=== PATIENT | female | born 1970 | race Caucasian/White ===

== ENCOUNTER 2020-12-07 07:42 | Outpatient (CLI) | payer OTHER, SELFPAY ==
[2020-12-07 08:44] LABS: Transferrin 311 mg/dL (206-381)
[2020-12-07 09:52] LABS: Hepatitis B Surface Antigen Negative (Negative)
[2020-12-07 10:30] LABS: Hepatitis C Virus Antibody Reactive (Negative)
[2020-12-09 18:30] LABS: Hepatitis C RNA, Quant PCR 1480000 IU/mL
[2020-12-13 10:11] LABS: Ceruloplasmin 36 mg/dL (18-53)
[2020-12-14 10:06] LABS: Mitochondrial (M2) Ab (IgG) <=20.0 U (<=20.0)
[2020-12-14 10:06] LABS: Alpha-1-Antitrypsin, QN 212 mg/dL (83-199)
[2020-12-14 19:38] LABS: Actin Antibody (IgG) <20 U (<20)
== END 2020-12-07 07:43 | disposition home or self-care (01) ==
PROVIDERS: PCP Nurse Practitioner Family
DX: R74.8 Abnormal levels of other serum enzymes (principal); Z11.59 Encounter for screening for other viral diseases
CPT/HCPCS: 36415; 82103; 82390; 82728; 83516; 83520; 84466; 86803; 87340; 87522

== ENCOUNTER 2025-07-05 15:19 | Inpatient (IN) | payer OTHER, SELFPAY ==
--- OUTSIDE RECORDS SUMMARY | 2010-06-28 03:45 | XMS_ITS | Continuity of Care Document ---
Author Organization [facility] Address [address] [place] [address] Exec utive [facility] [address] [place] [address] Phone Care Team Providers Care Relationship Advisor Name Role Phone Richardson OD, Yovany Unavailable Unavailable Procedures Procedure Date Eye Exam & Treatment Refraction Advance Directives Directive Yes / No Effective Date File Name No Information Encounters Encounter Description Practice Location Reason(s) For Visit Diagnoses Date Provider Providers Copied on Encounter [facility], [address], [place], [place], [id number], [place] tel:[phone] [facility] No Information 0-201 0 Richardson OD Yovany. [address] , [address], [place], [address], [place]. tel:[phone] Family History Family Member Type Diagnosis Age At Onset No Information Payers Payer name Insurance type Covered alliance party ID Authoriza tion(s) Medicaid [facility] [id number] Social History Type Description Quantity Date Captured [...]
--- OUTSIDE RECORDS SUMMARY | 2010-06-28 03:45 | XMS_ITS | Continuity of Care Document ---
Author Organization [facility] Address [address] [place] [address] Exec utive [facility] [address] [place] [address] Phone Care Team Providers Care Branch Examiner Name Role Phone Richardson OD, Yovany Unavailable Unavailable Procedures Procedure Date Eye Exam & Treatment Refraction Advance Directives Directive Yes / No Effective Date File Name No Information Encounters Encounter Description Practice Location Reason(s) For Visit Diagnoses Date Provider Providers Copied on Encounter [facility], [address], [place], [place], [address], [place] tel:[phone] [facility] [place] No Information 0-201 0 Richardson OD Yovany. [address] , [address], [place], [address], [place]. tel:[phone] Family History Family Member Type Diagnosis Age At Onset No Information Payers Payer name Insurance type Covered constitution party ID Authoriza tion(s) Medicaid [facility] [id number] Social History Type Description Quantity Date Captured [...]
--- OUTSIDE RECORDS SUMMARY | 2024-12-23 20:00 | XMS_ITS | Continuity of Care Document ---
Author Organization [facility] Address [address] [place] [address] Phone Care Team Providers Care Developmental Specialist Name Role Phone Rebekah Jeff Conteh Unavailable Unavail able Procedures Procedure Date SUBSEQUENT HOSPITAL CARE [facility] CARE Advance Directives Directive Yes / No Effective Date File Name No Information Encounters Encounter Description Practice Location Reason(s) For Visit Diagnoses Date Provider Providers Copied on Encounter [facility], [address] [place], [place], [id number], tel:[phone] [facility] No Information 5 Rebekah Wero Aguilar. [address], [address], . tel:[phone] Referring Provider: Jose Perez, [address] [place] [address], [address]. tel:[phone] Family History Family Member Type Diagnosis Age At Onset No Information Payers Payer name Insurance type Covered green party ID Authoriza tion(s) No Information Social History [...]
--- OUTSIDE RECORDS SUMMARY | 2024-12-23 20:00 | XMS_ITS | Continuity of Care Document ---
Author Organization [facility] Address [address] [place] [address] Phone Care Team Providers Care Wash Box Operator Name Role Phone Rebekah Jeff Conteh Unavailable Unavail able Procedures Procedure Date SUBSEQUENT HOSPITAL CARE [facility]ARE Advance Directives Directive Yes / No Effective Date File Name No Information Encounters Encounter Description Practice Location Reason(s) For Visit Diagnoses Date Provider Providers Copied on Encounter [facility], [address] [place], [place], [id number], tel:[phone] [facility] Inpatient No Information 5 Rebekah Wero Aguilar. [address], [address], . tel:[phone] Referring Provider: Jose Perez, [address] [place] [address], [address]. tel:[phone] Family History Family Member Type Diagnosis Age At Onset No Information Payers Payer name Insurance type Covered constitution party ID Authoriza tion(s) No Information Social [...]
[2025-07-05] VITALS (7 sets, daily range): BP systolic 132–182; BP diastolic 72–96; PULSE 74–93; RESP 14–20; TEMP 36.5–37.2; O2SAT 95–100; BMI 45.1
--- NOTE | ~2025-07-05 | US_ITS ---
EXAMINATION: US paracentesis abd w/image DATE: 07/11/2025 12:44 INDICATION: Ascites. Abdominal distention. TECHNIQUE: The procedure and its risks and benefits were discussed with the patient. Potential risks discussed included bleeding and infection. The skin was prepped and draped in sterile fashion. 1% lidocaine was used for local anesthesia. Under ultrasound guidance, a 5 Fr catheter with trochar was advanced into the ascites in the left lower quadrant. Fluid was aspirated into vacuum bottles. The catheter was removed, and a dressing was applied. There were no immediate complications. FINDINGS: Ultrasound images demonstrate ascites and the catheter within the fluid. IMPRESSION: 1. Successful ultrasound-guided paracentesis yielding 8000 mL of yellow/straw- colored fluid. Reviewed, dictated and finalized at location A.
--- NOTE | ~2025-07-05 | CT_ITS ---
EXAMINATION: CTA chest PE abdomen pel DATE: 07/05/2025 18:27 INDICATION: Left chest, rib and upper abdominal pain. Shortness of breath. TECHNIQUE: Computed tomography (CT) pulmonary angiogram of the chest was performed with 100 mL Omnipaque-350 intravenous contrast. Additional 3D reconstructions utilizing coronal maximum intensity projection (MIP) were performed. CT of the abdomen and pelvis was performed with intravenous contrast utilizing the same contrast bolus following a short delay. Automated exposure control and iterative reconstruction technique were employed. The dose-length product was 2763.28 mGy-cm. COMPARISON: None FINDINGS: Chest: No pulmonary embolism. Small fat-containing Bochdalek hernia at the posterior right hemidiaphragm. Minimal atelectasis in the bilateral lower lungs. No pneumonia, pulmonary edema, pleural effusion or pneumothorax. Cardiomegaly. Small amount of atherosclerotic coronary artery calcification. No pericardial effusion. Enlargement of the central pulmonary arteries consistent with pulmonary arterial hypertension. Thoracic aorta is normal in caliber with no dissection. No pathologically enlarged abdominal or pelvic lymphadenopathy. Mild thoracic spondylosis with chronic compression fractures with 40% anterior vertebral body height loss at T11 and with 20% anterior vertebral body height loss at T12. Abdomen/pelvis: Frontal nodular cirrhotic liver. Cholecystectomy clips the gallbladder fossa. Mild splenomegaly measuring 14 cm in craniocaudal length along with recanalized umbilical vein consistent with portal venous hypertension. Bladder, uterus, anteverted uterus and bilateral adnexa are unremarkable. Bowels are unremarkable with no wall thickening or obstruction. Large amount of ascites throughout the abdomen and pelvis and extending into moderate-sized umbilical hernia. No pathologically enlarged abdominal or pelvic lymphadenopathy. Severe lower lumbar spondylosis. Large Schmorl's node along the superior endplate of L4. IMPRESSION: 1. No pulmonary embolism or other acute cardiopulmonary disease. 2. Cirrhosis with stigmata of portal venous hypertension and large amount of ascites in the abdomen and pelvis. 3. Cardiomegaly and enlargement of the central pulmonary arteries consistent with pulmonary arterial hypertension. 4. Moderate-sized umbilical hernia containing ascites. Reviewed, dictated and finalized at location A. IMPRESSION: 1. No pulmonary embolism or other acute cardiopulmonary disease. 2. Cirrhosis with stigmata of portal venous hypertension and large amount of as cites in the abdomen and pelvis. 3. Cardiomegaly and enlargement of the central pulmonary arteries consistent wi th pulmonary arterial hypertension. 4. Moderate-sized umbilical hernia containing ascites.
--- NOTE | ~2025-07-05 | XR_ITS ---
Examination: XR chest 1V portable Clinical History: RIB PAIN LEFT LOWER ANTERIOR MARGIN, FELL X 2 DAYS AGO ON RT Comparison: CTA chest one day prior Technique: Portable AP Findings: Heart size normal. Right hemithorax haziness likely overlying soft tissue artifact, also accounting for relative hyperlucency left lung. Lungs otherwise clear. No acute bony abnormality. IMPRESSION: 1. No definite acute cardiopulmonary findings given portable technique. Recommend short interval follow-up repeat x-ray. Reviewed, dictated and finalized at location R. IMPRESSION: 1. No definite acute cardiopulmonary findings given portable technique. Recomm end short interval follow-up repeat x-ray.
--- NOTE | ~2025-07-05 | US_ITS ---
EXAMINATION: US paracentesis abd w/image DATE: 07/06/2025 14:02 INDICATION: Ascites. TECHNIQUE: The procedure and its risks and benefits were discussed with the patient. Potential risks discussed included bleeding and infection. The skin was prepped and draped in sterile fashion. 1% lidocaine was used for local anesthesia. Under ultrasound guidance, a 5 Fr catheter with trochar was advanced into the ascites in the left lower quadrant. Fluid was aspirated into vacuum bottles. The catheter was removed, and a dressing was applied. There were no immediate complications. FINDINGS: Ultrasound images demonstrate ascites and the catheter within the fluid. IMPRESSION: 1. Successful ultrasound-guided paracentesis yielding 6000 mL of clear yellow fluid. Reviewed, dictated and finalized at location A.
--- NOTE | 2025-07-05 15:57 | ED.FALL ---
HPI - Fall General Chief Complaint: Fall <MARIN Cespedes Last Filed: 07/08/25 17:02> Stated Complaint: left side of chest pain <MARIN Cespedes Last Filed: 07/08/25 17:02> Time Seen by Provider: 07/05/25 15:26 <MARIN Cespedes Last Filed: 07/08/25 17:02> Source: patient <MARIN Cespedes Last Filed: 07/08/25 17:02> Mode of arrival: ambulatory <MARIN Cespedes Last Filed: 07/08/25 17:02> Limitations: no limitations <MARIN Cespedes Last Filed: 07/08/25 17:02> History of Present Illness HPI Narrative: Patient is a 55 y/o female who presents to the ED with c/o L sided rib and abdominal pain. Patient is from [place], but states she went to visit her grandson in [place] in December, but became ill while there. She has been in and out of the hospital for the past several months, diagnosed with pancreatitis, end-stage liver disease, bowel obstruction, several other complications. She returned home 10 days ago, but does not currently have a primary care doctor, GI specialist, or have any of her home medications. She states she tried to call the GI office today and has an appointment in the next 2 weeks. She tried to schedule herself for a paracentesis today as she states she is due for one, however had a fall yesterday and believes she injured her L sided ribs. C/o pain to L rib/L upper abdomen. States she was told she could not receive the paracentesis today d/t the injury. C/o abd bloating, SOB. Denies fevers. Patient denies ETOH use. States liver disease thought to originally be r/t hepatitis. <MARIN Cespedes Last Filed: 07/08/25 17:02> Related Data Home Medications: Home Medications ?Medication ?Instructions ?Recorded ?Confirmed ?Last Taken ?Type alprazolam 1 mg tablet 1 mg PO BID PRN anxiety 07/05/25 07/05/25 07/04/25 History bupropion HCl 200 mg tablet,12 hr 200 mg PO Q12H 07/05/25 07/05/25 Unknown History sustained-release furosemide 20 mg tablet 40 mg PO DAILY 07/05/25 07/05/25 Unknown History lactulose 10 gram/15 mL oral 30 ml PO TID 07/05/25 07/05/25 Unknown History solution (Constulose) levothyroxine 50 mcg tablet 50 mcg PO DAILY 07/05/25 07/05/25 Unknown History mupirocin 2 % topical ointment 1 applic topical TID 07/05/25 07/05/25 Unknown History ondansetron 4 mg disintegrating 4 mg PO TID PRN nausea and vomiting 07/05/25 07/05/25 Unknown History tablet pantoprazole 40 mg tablet,delayed 40 mg PO Q12H 07/05/25 07/05/25 Unknown History release quetiapine 100 mg tablet 200 mg PO HS 07/05/25 07/05/25 Unknown History sertraline 50 mg tablet 50 mg PO DAILY 07/05/25 07/05/25 Unknown History <Ailin Trevino PA-C - Last Filed: 07/08/25 17:02> Allergies/Adverse Reactions: Allergies Allergy/AdvReac Type Severity Reaction Status Date / Time adhesive tape AdvReac Intermediate blister Verified 07/05/25 22:18 <Ailin Trevino PA-C - Last Filed: 07/08/25 17:02> Review of Systems Review of Systems: All systems reviewed & are unremarkable except as noted in HPI. <MARIN Cespedes Last Filed: 07/08/25 17:02> All systems reviewed & are unremarkable except as noted in HPI and below <MARIN Cespedes Last Filed: 07/08/25 17:02> [facility] Family History Family History: Family History (Updated 07/05/25 @ 22:30 by Gabby Odonnell RN) Father Lung cancer <MARIN Cespedes Last Filed: 07/08/25 17:02> Social History Social History: Social History Smoking status: Former smoker Lack of Transportation: No Lack of Food: Never True Current Housing: I Have Housing Concerned About Future Housing: No Difficulty Paying Gas/Electric Bills: No Difficulty Paying for Meds: No Currently Unemployed: No Education: High School Diploma/GED Difficulty w/ Childcare or Family Care: No Spiritual care concerns: No <Ailin Trevino PA-C - Last Filed: 07/08/25 17:02> Exam Narrative: GENERAL: Appears older than stated age, morbidly obese with BMI 45.2, non-toxic, in no acute distress. HEAD: Normocephalic, atraumatic. RESPIRATORY: Airway patent, respirations nonlabored. Clear to auscultation bilaterally, no rales, rhonchi, wheezing. CARDIOVASCULAR: Regular rate and rhythm without murmurs, rubs, or gallops. ABDOMINAL: Moderate tenderness in left upper abdomen. Abdomen is somewhat firm/protuberant, moderately distended. Normoactive BS. Large umbilical hernia, soft, partially reducible, small abrasions overlying skin MUSCULOSKELETAL: Moves all extremities. No gross deformities. SKIN: Warm, dry, normal color. NEURO: A&O X3. Speech clear. Cranial nerves II-XII grossly intact. Steady gait. No ataxic movements. PSYCHIATRIC: Appropriate mood and affect. Normal interaction. <Ailin Trevino PA-C - Last Filed: 07/08/25 17:02> Course BIOINFORMATICS SCIENTIST/PA Physician Supervision This visit was performed by both a physician and an APC. I performed all aspects of the MDM as documented. <Femi Alberto MD - Last Filed: 07/05/25 19:34> Vital Signs Vital signs: Vital Signs Temperature 98.9 F 07/05/25 15:27 Pulse Rate 93 07/05/25 15:27 Respiratory Rate 20 07/05/25 15:27 Blood Pressure 182/96 H 07/05/25 15:27 Pulse Oximetry 95 07/05/25 15:27 Oxygen Delivery Room Air 07/05/25 15:27 Temperature 98.1 F 07/08/25 14:00 Pulse Rate 87 07/08/25 14:00 Respiratory Rate 18 07/08/25 14:00 Blood Pressure 106/49 L 07/08/25 14:00 Pulse Oximetry 96 07/08/25 14:00 Oxygen Delivery Room Air 07/08/25 09:15 <Ailin Trevino PA-C - Last Filed: 07/08/25 17:02> Vital Signs Temperature 98.9 F 07/05/25 15:27 Pulse Rate 93 07/05/25 15:27 Respiratory Rate 20 07/05/25 15:27 Blood Pressure 182/96 H 07/05/25 15:27 Pulse Oximetry 95 07/05/25 15:27 Oxygen Delivery Room Air 07/05/25 15:27 Temperature 98.1 F 07/08/25 14:00 Pulse Rate 87 07/08/25 14:00 Respiratory Rate 18 07/08/25 14:00 Blood Pressure 106/49 L 07/08/25 14:00 Pulse Oximetry 96 07/08/25 14:00 Oxygen Delivery Room Air 07/08/25 09:15 <Femi Alberto MD - Last Filed: 07/05/25 19:34> MDM - Fall MDM Narrative Medical decision making narrative: Patient presented to ED with report of L sided rib/upper abdominal pain s/p fall last night. Hx of end stage liver disease/liver cirrhosis, has been out of normal medications, does not currently have GI or PCP. Reporting abdominal bloating, need for paracentesis, shortness of breath. Vital signs are stable upon arrival. Oxygen 95 % on room air. Patient did have moderate tenderness throughout left upper abdomen on exam. Reports fall yesterday, unsure if she injured her ribs. No significant appreciable bony tenderness. Given moderate tenderness in abdomen, significant abd bloating, plan will be to cover for possible SBP with 2g dose of Rocephin. Cbc without leukocytosis or anemia. Very mild thrombocytopenia at 133. CMP with potassium 3.2. Replaced orally. Kidney function is stable. Mag within normal range. Lactic acid within normal range. Total bilirubin mildly elevated to 1.7. AST 50, ALT 24. Normal alk-phos and lipase. No records to compare to. Stable coags, INR 1.2 EKG with sinus rhythm, no concerning ST changes BNP 130 UA appears infected, sent for cx, will be covered with rocephin CTA chest with abd/pelvis obtained, no PE, no other acute pulm disease, cirrhosis/large amt of ascites: IMPRESSION: 1. No pulmonary embolism or other acute cardiopulmonary disease. 2. Cirrhosis with stigmata of portal venous hypertension and large amount of ascites in the abdomen and pelvis. 3. Cardiomegaly and enlargement of the central pulmonary arteries consistent with pulmonary arterial hypertension. 4. Moderate-sized umbilical hernia containing ascites. Patient will require admission for further evaluation, GI eval, paracentesis. Discussed case with AISHWARYA Honeycutt, recommended to hold on abx for now until paracentesis can be performed, recommended to restart Lasix 40mg po, spironolactone 100mg po. Will consult. Blood cx were obtained. Discussed case with Dr. Villaseñor, hospitalist, accepted patient for admission. Patient in agreement with plan. -- This visit was performed by both a physician and an APC. I performed all aspects of the MDM as documented. <Ailin Trevino PA-C - Last Filed: 07/08/25 17:02> Patient presented to ED with report of L sided rib/upper abdominal pain s/p fall last night. Hx of end stage liver disease, has been out of normal medications, does not currently have GI or PCP. Reporting abdominal bloating, need for paracentesis, shortness of breath. Vital signs are stable upon arrival. Oxygen 95 % on room air. Patient did have moderate tenderness throughout left upper abdomen on exam. No significant appreciable bony tenderness. Given moderate tenderness in abdomen, significant abd bloating, will cover for possible SBP with 2g dose of Rocephin. Cbc without leukocytosis or anemia. Very mild thrombocytopenia at 133. CMP with potassium 3.2. Replaced orally. Kidney function is stable. Mag within normal range. Lactic acid within normal range. Total bilirubin mildly elevated to 1.7. AST 50, ALT 24. Normal alk-phos and lipase. No records to compare to. Stable coags, INR 1.2 EKG with sinus rhythm, no concerning ST changes Troponin BNP 130 UA appears infected, sent for cx, will be covered with rocephin CTA chest with abd/pelvis obtained, no PE, no other acute pulm disease, cirrhosis/large amt of ascites Patient will require admission for further evaluation, GI eval, paracentesis. Discussed case with AISHWARYA Honeycutt, recommended to hold on abx for now until paracentesis can be performed, recommended to restart Lasix 40mg po, spironolactone 100mg po. Will consult. Discussed case with Dr. Villaseñor, hospitalist, accepted patient for admission. Patient in agreement with plan. -- This visit was performed by both a physician and an APC. I performed all aspects of the MDM as documented. <Femi Alberto MD - Last Filed: 07/05/25 19:34> Medical Records Attestation: I reviewed the patient's medical records. <Ailin Trevino PA-C - Last Filed: 07/08/25 17:02> Lab Data Attestation: I reviewed the patient's lab results. <Ailin Trevino PA-C - Last Filed: 07/08/25 17:02> Result diagrams: 07/08/25 05:05 07/08/25 05:05 <Ailin Trevino PA-C - Last Filed: 07/08/25 17:02> Labs: Lab Results 07/05/25 07/05/25 07/06/25 Range/Units 16:49 16:50 04:33 WBC 6.2 (4.5-10.0) K/mm3 RBC 3.95 L (4.2-5.4) M/mm3 Hgb 12.1 (12.0-15.0) g/dL Hct 36.7 L (37.0-47.0) % MCV 92.9 (80-100) fl MCH 30.6 (26-34) pg MCHC 33.0 (32-36) g/dl RDW 15.3 H (11.5-14.5) % Plt Count 133 L (150-375) k/mm3 MPV 9.7 (7.4-10.4) fl Immature Gran % (Auto) 0.3 (0-0.5) % Neut % (Auto) 59.2 (45.5-73.1) % Lymph % (Auto) 23.8 (18.3-44.2) % Esmer[place]da % (Auto) 13.8 H (2.6-8.5) % Eos % (Auto) 1.8 (0-4.4) % Baso % (Auto) 1.1 (0.2-1.2) % Lymph # (Auto) 1.48 (0.9-3.2) K/mm3 [place] # (Auto) 0.9 H (0.1-0.6) K/mm3 Eos # (Auto) 0.1 (0-0.3) K/mm3 Baso # (Auto) 0.1 (0.0-0.1) K/mm3 Abs Immat Gran (auto) 0.02 (0.00-0.031) K/mm3 Absolute Neuts (auto) 3.7 (1.3-6.7) K/mm3 Absolute Nucleated RBC 0.000 (0.0-0.012) K/mm3 Nucleated RBC % 0.0 (0.0-0.2) % % Immature Plt Fraction 1.1 (0.9-11.2) % PT 15.0 H (11.1-14.7) Seconds INR 1.2 APTT 28.9 (22.3-36.8) Seconds Sodium 134 L (137-145) mmol/L Potassium 3.2 L (3.4-5.0) mmol/L Chloride 105 (98-107) mmol/L Carbon Dioxide 25 (22-30) mmol/L Anion Gap 4 (4-12) mmol/L BUN 9 (7-17) mg/dL Creatinine 0.74 (0.7-1.0) mg/dL Estim Creat Clear Calc 105 ml/min Estimated GFR > 60 (59 - ) Glucose 121 H (65-110) mg/dL Lactic Acid 1.2 (0.7-2.0) mmol/L Calcium 8.3 L (8.4-10.2) mg/dL Magnesium 2.0 (1.6-2.3) mg/dL Total Bilirubin 1.7 H (0.2-1.3) mg/dL Direct Bilirubin (0-0.3) mg/dL AST 50 H (14-36) U/L ALT 24 (6-35) U/L Alkaline Phosphatase 121 (38-126) U/L Ammonia (9-30) umol/L Troponin I 0.022 (0.000-0.034) ng/mL NT-Pro-B Natriuret Pep 130 H (19.9-100) pg/mL Total Protein 7.3 (6.3-8.2) g/dL Albumin 3.1 L (3.5-5.1) g/dL Lipase 178 (23-300) U/L Urine Color Dark yellow (Yellow) Urine Appearance Cloudy H (Clear) Urine pH 6.5 (5.0-9.0) Ur Specific [place] 1.024 (1.001-1.035) Urine Protein Trace (Negative) mg/dL Urine Glucose (UA) Negative (Negative) mg/dL Urine Ketones Trace H (Negative) mg/dL Ur Blood (Man) Negative (Negative) Urine Nitrate Negative (Negative) Urine Bilirubin 1+ H (Negative) Urine Urobilinogen 1.0 (<2.0) mg/dL Add Ur Microanalysis Reviewed Leukocyte Esterase Rfl 1+ H (Negative) LAVON/UL Urine RBC 6-10 H (0-2) /hpf Urine WBC 21-50 H (0-3) /hpf Ur Squamous Epith Cells Moderate (Few) /hpf Urine Bacteria 2+ H /hpf Urine Casts 0-2 Urine Mucus Present /lpf POC Urine HCG, Qual Negative (Negative) Fluid Glucose (.) mg/dL Fluid Total Protein (.) g/dL Fluid Albumin (Not Estab.) g/dL Fluid Amylase (.) U/L Peritoneal Source Peritoneal Color (Colorless) Peritoneal Appearance (Clear) Peritoneal RBC (0-17328) /uL Periton Nuc Cells (0-500) /uL Periton Neutrophils (0-25) % Periton Lymphocytes % Peritoneal Monocytes % Peritoneal Eosinophils % Periton Mesothelial % Periton Macrophages % Peritoneal Other Cells % Hepatitis C Ab Screen Reactive (Negative) Hepatitis C RNA Quant Pending HCV RNA (PCR) log10 Pending Hepatitis C Genotype Pending 07/06/25 07/06/25 07/06/25 Range/Units 04:38 13:36 13:46 WBC 5.0 (4.5-10.0) K/mm3 RBC 3.51 L (4.2-5.4) M/mm3 Hgb 10.6 L (12.0-15.0) g/dL Hct 32.9 L (37.0-47.0) % MCV 93.7 (80-100) fl MCH 30.2 (26-34) pg MCHC 32.2 (32-36) g/dl RDW 15.5 H (11.5-14.5) % Plt Count 100 L (150-375) k/mm3 MPV 9.5 (7.4-10.4) fl Immature Gran % (Auto) 0.4 (0-0.5) % Neut % (Auto) 58.7 (45.5-73.1) % Lymph % (Auto) 25.4 (18.3-44.2) % [place]mer[place]da % (Auto) 13.1 H (2.6-8.5) % Eos % (Auto) 1.6 (0-4.4) % Baso % (Auto) 0.8 (0.2-1.2) % Lymph # (Auto) 1.28 (0.9-3.2) K/mm3 [place] # (Auto) 0.7 H (0.1-0.6) K/mm3 Eos # (Auto) 0.1 (0-0.3) K/mm3 Baso # (Auto) 0.0 (0.0-0.1) K/mm3 Abs Immat Gran (auto) 0.02 (0.00-0.031) K/mm3 Absolute Neuts (auto) 3.0 (1.3-6.7) K/mm3 Absolute Nucleated RBC 0.000 (0.0-0.012) K/mm3 Nucleated RBC % 0.0 (0.0-0.2) % % Immature Plt Fraction (0.9-11.2) % PT 15.7 H (11.1-14.7) Seconds INR 1.2 APTT (22.3-36.8) Seconds Sodium 132 L (137-145) mmol/L Potassium 3.5 (3.4-5.0) mmol/L Chloride 103 (98-107) mmol/L Carbon Dioxide 26 (22-30) mmol/L Anion Gap 3 L (4-12) mmol/L BUN 9 (7-17) mg/dL Creatinine 0.74 (0.7-1.0) mg/dL Estim Creat Clear Calc 105 ml/min Estimated GFR > 60 (59 - ) Glucose 101 (65-110) mg/dL Lactic Acid (0.7-2.0) mmol/L Calcium 7.9 L (8.4-10.2) mg/dL Magnesium 1.9 (1.6-2.3) mg/dL Total Bilirubin 1.9 H (0.2-1.3) mg/dL Direct Bilirubin (0-0.3) mg/dL AST 45 H (14-36) U/L ALT 21 (6-35) U/L Alkaline Phosphatase 101 (38-126) U/L Ammonia 34 H (9-30) umol/L Troponin I (0.000-0.034) ng/mL NT-Pro-B Natriuret Pep (19.9-100) pg/mL Total Protein 6.5 (6.3-8.2) g/dL Albumin 2.7 L (3.5-5.1) g/dL Lipase (23-300) U/L Urine Color (Yellow) Urine Appearance (Clear) Urine pH (5.0-9.0) Ur Specific [place] (1.001-1.035) Urine Protein (Negative) mg/dL Urine Glucose (UA) (Negative) mg/dL Urine Ketones (Negative) mg/dL Ur Blood (Man) (Negative) Urine Nitrate (Negative) Urine Bilirubin (Negative) Urine Urobilinogen (<2.0) mg/dL Add Ur Microanalysis Leukocyte Esterase Rfl (Negative) LAVON/UL Urine RBC (0-2) /hpf Urine WBC (0-3) /hpf Ur Squamous Epith Cells (Few) /hpf Urine Bacteria /hpf Urine Casts Urine Mucus /lpf POC Urine HCG, Qual (Negative) Fluid Glucose 101 (.) mg/dL Fluid Total Protein 1.8 (.) g/dL Fluid Albumin 0.9 (Not Estab.) g/dL Fluid Amylase 22 (.) U/L Peritoneal Source Peritoneal fluid Peritoneal Color Yellow (Colorless) Peritoneal Appearance Clear (Clear) Peritoneal RBC < 2000 (0-03975) /uL Periton Nuc Cells 161 (0-500) /uL Periton Neutrophils 5 (0-25) % Periton Lymphocytes 18 % Peritoneal Monocytes 14 % Peritoneal Eosinophils 0 % Periton Mesothelial 23 % Periton Macrophages 40 % Peritoneal Other Cells 0 % Hepatitis C Ab Screen (Negative) Hepatitis C RNA Quant HCV RNA (PCR) log10 Hepatitis C Genotype 07/07/25 07/08/25 Range/Units 09:30 05:05 WBC 3.7 L 3.6 L (4.5-10.0) K/mm3 RBC 3.39 L 3.26 L (4.2-5.4) M/mm3 Hgb 10.4 L 9.8 L (12.0-15.0) g/dL Hct 34.7 L 30.9 L (37.0-47.0) % MCV 102.4 H D 94.8 D (80-100) fl MCH 30.7 30.1 (26-34) pg MCHC 30.0 L 31.7 L (32-36) g/dl RDW 15.3 H 14.8 H (11.5-14.5) % Plt Count 69 L 76 L (150-375) k/mm3 MPV 9.4 9.6 (7.4-10.4) fl Immature Gran % (Auto) 0.3 0.3 (0-0.5) % Neut % (Auto) 54.4 54.5 (45.5-73.1) % Lymph % (Auto) 27.8 24.5 (18.3-44.2) % [place]mer[place]da % (Auto) 13.5 H 17.1 H (2.6-8.5) % Eos % (Auto) 3.2 2.5 (0-4.4) % Baso % (Auto) 0.8 1.1 (0.2-1.2) % Lymph # (Auto) 1.03 0.89 L (0.9-3.2) K/mm3 [place] # (Auto) 0.5 0.6 (0.1-0.6) K/mm3 Eos # (Auto) 0.1 0.1 (0-0.3) K/mm3 Baso # (Auto) 0.0 0.0 (0.0-0.1) K/mm3 Abs Immat Gran (auto) 0.01 0.01 (0.00-0.031) K/mm3 Absolute Neuts (auto) 2.0 2.0 (1.3-6.7) K/mm3 Absolute Nucleated RBC 0.000 0.000 (0.0-0.012) K/mm3 Nucleated RBC % 0.0 0.0 (0.0-0.2) % % Immature Plt Fraction 1.3 (0.9-11.2) % PT (11.1-14.7) Seconds INR APTT (22.3-36.8) Seconds Sodium 131 L 132 L (137-145) mmol/L Potassium 3.2 L 3.5 (3.4-5.0) mmol/L Chloride 99 100 (98-107) mmol/L Carbon Dioxide 27 27 (22-30) mmol/L Anion Gap 5 5 (4-12) mmol/L BUN 9 9 (7-17) mg/dL Creatinine 0.85 0.82 (0.7-1.0) mg/dL Estim Creat Clear Calc 90 93 ml/min Estimated GFR > 60 > 60 (59 - ) Glucose 125 H 101 (65-110) mg/dL Lactic Acid (0.7-2.0) mmol/L Calcium 8.3 L 8.4 (8.4-10.2) mg/dL Magnesium (1.6-2.3) mg/dL Total Bilirubin 1.4 H 1.1 (0.2-1.3) mg/dL Direct Bilirubin 0.0 (0-0.3) mg/dL AST 44 H 45 H (14-36) U/L ALT 24 22 (6-35) U/L Alkaline Phosphatase 93 96 (38-126) U/L Ammonia (9-30) umol/L Troponin I (0.000-0.034) ng/mL NT-Pro-B Natriuret Pep (19.9-100) pg/mL Total Protein 7.0 6.3 (6.3-8.2) g/dL Albumin 3.4 L 3.0 L (3.5-5.1) g/dL Lipase (23-300) U/L Urine Color (Yellow) Urine Appearance (Clear) Urine pH (5.0-9.0) Ur Specific [place] (1.001-1.035) Urine Protein (Negative) mg/dL Urine Glucose (UA) (Negative) mg/dL Urine Ketones (Negative) mg/dL Ur Blood (Man) (Negative) Urine Nitrate (Negative) Urine Bilirubin (Negative) Urine Urobilinogen (<2.0) mg/dL Add Ur Microanalysis Leukocyte Esterase Rfl (Negative) LAVON/UL Urine RBC (0-2) /hpf Urine WBC (0-3) /hpf Ur Squamous Epith Cells (Few) /hpf Urine Bacteria /hpf Urine Casts Urine Mucus /lpf POC Urine HCG, Qual (Negative) Fluid Glucose (.) mg/dL Fluid Total Protein (.) g/dL Fluid Albumin (Not Estab.) g/dL Fluid Amylase (.) U/L Peritoneal Source Peritoneal Color (Colorless) Peritoneal Appearance (Clear) Peritoneal RBC (0-17977) /uL Periton Nuc Cells (0-500) /uL Periton Neutrophils (0-25) % Periton Lymphocytes % Peritoneal Monocytes % Peritoneal Eosinophils % Periton Mesothelial % Periton Macrophages % Peritoneal Other Cells % Hepatitis C Ab Screen (Negative) Hepatitis C RNA Quant HCV RNA (PCR) log10 Hepatitis C Genotype <Ailin Trevino PA-C - Last Filed: 07/08/25 17:02> Lab Results 07/05/25 07/05/25 07/06/25 Range/Units 16:49 16:50 04:33 WBC 6.2 (4.5-10.0) K/mm3 RBC 3.95 L (4.2-5.4) M/mm3 Hgb 12.1 (12.0-15.0) g/dL Hct 36.7 L (37.0-47.0) % MCV 92.9 (80-100) fl MCH 30.6 (26-34) pg MCHC 33.0 (32-36) g/dl RDW 15.3 H (11.5-14.5) % Plt Count 133 L (150-375) k/mm3 MPV 9.7 (7.4-10.4) fl Immature Gran % (Auto) 0.3 (0-0.5) % Neut % (Auto) 59.2 (45.5-73.1) % Lymph % (Auto) 23.8 (18.3-44.2) % [place]mer[place]da % (Auto) 13.8 H (2.6-8.5) % Eos % (Auto) 1.8 (0-4.4) % Baso % (Auto) 1.1 (0.2-1.2) % Lymph # (Auto) 1.48 (0.9-3.2) K/mm3 [place] # (Auto) 0.9 H (0.1-0.6) K/mm3 Eos # (Auto) 0.1 (0-0.3) K/mm3 Baso # (Auto) 0.1 (0.0-0.1) K/mm3 Abs Immat Gran (auto) 0.02 (0.00-0.031) K/mm3 Absolute Neuts (auto) 3.7 (1.3-6.7) K/mm3 Absolute Nucleated RBC 0.000 (0.0-0.012) K/mm3 Nucleated RBC % 0.0 (0.0-0.2) % % Immature Plt Fraction 1.1 (0.9-11.2) % PT 15.0 H (11.1-14.7) Seconds INR 1.2 APTT 28.9 (22.3-36.8) Seconds Sodium 134 L (137-145) mmol/L Potassium 3.2 L (3.4-5.0) mmol/L Chloride 105 (98-107) mmol/L Carbon Dioxide 25 (22-30) mmol/L Anion Gap 4 (4-12) mmol/L BUN 9 (7-17) mg/dL Creatinine 0.74 (0.7-1.0) mg/dL Estim Creat Clear Calc 105 ml/min Estimated GFR > 60 (59 - ) Glucose 121 H (65-110) mg/dL Lactic Acid 1.2 (0.7-2.0) mmol/L Calcium 8.3 L (8.4-10.2) mg/dL Magnesium 2.0 (1.6-2.3) mg/dL Total Bilirubin 1.7 H (0.2-1.3) mg/dL Direct Bilirubin (0-0.3) mg/dL AST 50 H (14-36) U/L ALT 24 (6-35) U/L Alkaline Phosphatase 121 (38-126) U/L Ammonia (9-30) umol/L Troponin I 0.022 (0.000-0.034) ng/mL NT-Pro-B Natriuret Pep 130 H (19.9-100) pg/mL Total Protein 7.3 (6.3-8.2) g/dL Albumin 3.1 L (3.5-5.1) g/dL Lipase 178 (23-300) U/L Urine Color Dark yellow (Yellow) Urine Appearance Cloudy H (Clear) Urine pH 6.5 (5.0-9.0) Ur Specific [place] 1.024 (1.001-1.035) Urine Protein Trace (Negative) mg/dL Urine Glucose (UA) Negative (Negative) mg/dL Urine Ketones Trace H (Negative) mg/dL Ur Blood (Man) Negative (Negative) Urine Nitrate Negative (Negative) Urine Bilirubin 1+ H (Negative) Urine Urobilinogen 1.0 (<2.0) mg/dL Add Ur Microanalysis Reviewed Leukocyte Esterase Rfl 1+ H (Negative) LAVON/UL Urine RBC 6-10 H (0-2) /hpf Urine WBC 21-50 H (0-3) /hpf Ur Squamous Epith Cells Moderate (Few) /hpf Urine Bacteria 2+ H /hpf Urine Casts 0-2 Urine Mucus Present /lpf POC Urine HCG, Qual Negative (Negative) Fluid Glucose (.) mg/dL Fluid Total Protein (.) g/dL Fluid Albumin (Not Estab.) g/dL Fluid Amylase (.) U/L Peritoneal Source Peritoneal Color (Colorless) Peritoneal Appearance (Clear) Peritoneal RBC (0-68546) /uL Periton Nuc Cells (0-500) /uL Periton Neutrophils (0-25) % Periton Lymphocytes % Peritoneal Monocytes % Peritoneal Eosinophils % Periton Mesothelial % Periton Macrophages % Peritoneal Other Cells % Hepatitis C Ab Screen Reactive (Negative) Hepatitis C RNA Quant Pending HCV RNA (PCR) log10 Pending Hepatitis C Genotype Pending 07/06/25 07/06/25 07/06/25 Range/Units 04:38 13:36 13:46 WBC 5.0 (4.5-10.0) K/mm3 RBC 3.51 L (4.2-5.4) M/mm3 Hgb 10.6 L (12.0-15.0) g/dL Hct 32.9 L (37.0-47.0) % MCV 93.7 (80-100) fl MCH 30.2 (26-34) pg MCHC 32.2 (32-36) g/dl RDW 15.5 H (11.5-14.5) % Plt Count 100 L (150-375) k/mm3 MPV 9.5 (7.4-10.4) fl Immature Gran % (Auto) 0.4 (0-0.5) % Neut % (Auto) 58.7 (45.5-73.1) % Lymph % (Auto) 25.4 (18.3-44.2) % Esmeralda % (Auto) 13.1 H (2.6-8.5) % Eos % (Auto) 1.6 (0-4.4) % Baso % (Auto) 0.8 (0.2-1.2) % Lymph # (Auto) 1.28 (0.9-3.2) K/mm3 Esmeralda # (Auto) 0.7 H (0.1-0.6) K/mm3 Eos # (Auto) 0.1 (0-0.3) K/mm3 Baso # (Auto) 0.0 (0.0-0.1) K/mm3 Abs Immat Gran (auto) 0.02 (0.00-0.031) K/mm3 Absolute Neuts (auto) 3.0 (1.3-6.7) K/mm3 Absolute Nucleated RBC 0.000 (0.0-0.012) K/mm3 Nucleated RBC % 0.0 (0.0-0.2) % % Immature Plt Fraction (0.9-11.2) % PT 15.7 H (11.1-14.7) Seconds INR 1.2 APTT (22.3-36.8) Seconds Sodium 132 L (137-145) mmol/L Potassium 3.5 (3.4-5.0) mmol/L Chloride 103 (98-107) mmol/L Carbon Dioxide 26 (22-30) mmol/L Anion Gap 3 L (4-12) mmol/L BUN 9 (7-17) mg/dL Creatinine 0.74 (0.7-1.0) mg/dL Estim Creat Clear Calc 105 ml/min Estimated GFR > 60 (59 - ) Glucose 101 (65-110) mg/dL Lactic Acid (0.7-2.0) mmol/L Calcium 7.9 L (8.4-10.2) mg/dL Magnesium 1.9 (1.6-2.3) mg/dL Total Bilirubin 1.9 H (0.2-1.3) mg/dL Direct Bilirubin (0-0.3) mg/dL AST 45 H (14-36) U/L ALT 21 (6-35) U/L Alkaline Phosphatase 101 (38-126) U/L Ammonia 34 H (9-30) umol/L Troponin I (0.000-0.034) ng/mL NT-Pro-B Natriuret Pep (19.9-100) pg/mL Total Protein 6.5 (6.3-8.2) g/dL Albumin 2.7 L (3.5-5.1) g/dL Lipase (23-300) U/L Urine Color (Yellow) Urine Appearance (Clear) Urine pH (5.0-9.0) Ur Specific [place] (1.001-1.035) Urine Protein (Negative) mg/dL Urine Glucose (UA) (Negative) mg/dL Urine Ketones (Negative) mg/dL Ur Blood (Man) (Negative) Urine Nitrate (Negative) Urine Bilirubin (Negative) Urine Urobilinogen (<2.0) mg/dL Add Ur Microanalysis Leukocyte Esterase Rfl (Negative) LAVON/UL Urine RBC (0-2) /hpf Urine WBC (0-3) /hpf Ur Squamous Epith Cells (Few) /hpf Urine Bacteria /hpf Urine Casts Urine Mucus /lpf POC Urine HCG, Qual (Negative) Fluid Glucose 101 (.) mg/dL Fluid Total Protein 1.8 (.) g/dL Fluid Albumin 0.9 (Not Estab.) g/dL Fluid Amylase 22 (.) U/L Peritoneal Source Peritoneal fluid Peritoneal Color Yellow (Colorless) Peritoneal Appearance Clear (Clear) Peritoneal RBC < 2000 (0-17991) /uL Periton Nuc Cells 161 (0-500) /uL Periton Neutrophils 5 (0-25) % Periton Lymphocytes 18 % Peritoneal Monocytes 14 % Peritoneal Eosinophils 0 % [place] Mesothelial 23 % [place] Macrophages 40 % Peritoneal Other Cells 0 % Hepatitis C Ab Screen (Negative) Hepatitis C RNA Quant HCV RNA (PCR) log10 Hepatitis C Genotype 07/07/25 07/08/25 Range/Units 09:30 05:05 WBC 3.7 L 3.6 L (4.5-10.0) K/mm3 RBC 3.39 L 3.26 L (4.2-5.4) M/mm3 Hgb 10.4 L 9.8 L (12.0-15.0) g/dL Hct 34.7 L 30.9 L (37.0-47.0) % MCV 102.4 H D 94.8 D (80-100) fl MCH 30.7 30.1 (26-34) pg MCHC 30.0 L 31.7 L (32-36) g/dl RDW 15.3 H 14.8 H (11.5-14.5) % Plt Count 69 L 76 L (150-375) k/mm3 MPV 9.4 9.6 (7.4-10.4) fl Immature Gran % (Auto) 0.3 0.3 (0-0.5) % Neut % (Auto) 54.4 54.5 (45.5-73.1) % Lymph % (Auto) 27.8 24.5 (18.3-44.2) % Esmeralda % (Auto) 13.5 H 17.1 H (2.6-8.5) % Eos % (Auto) 3.2 2.5 (0-4.4) % Baso % (Auto) 0.8 1.1 (0.2-1.2) % Lymph # (Auto) 1.03 0.89 L (0.9-3.2) K/mm3 Esmeralda # (Auto) 0.5 0.6 (0.1-0.6) K/mm3 Eos # (Auto) 0.1 0.1 (0-0.3) K/mm3 Baso # (Auto) 0.0 0.0 (0.0-0.1) K/mm3 Abs Immat Gran (auto) 0.01 0.01 (0.00-0.031) K/mm3 Absolute Neuts (auto) 2.0 2.0 (1.3-6.7) K/mm3 Absolute Nucleated RBC 0.000 0.000 (0.0-0.012) K/mm3 Nucleated RBC % 0.0 0.0 (0.0-0.2) % % Immature Plt Fraction 1.3 (0.9-11.2) % PT (11.1-14.7) Seconds INR APTT (22.3-36.8) Seconds Sodium 131 L 132 L (137-145) mmol/L Potassium 3.2 L 3.5 (3.4-5.0) mmol/L Chloride 99 100 (98-107) mmol/L Carbon Dioxide 27 27 (22-30) mmol/L Anion Gap 5 5 (4-12) mmol/L BUN 9 9 (7-17) mg/dL Creatinine 0.85 0.82 (0.7-1.0) mg/dL Estim Creat Clear Calc 90 93 ml/min Estimated GFR > 60 > 60 (59 - ) Glucose 125 H 101 (65-110) mg/dL Lactic Acid (0.7-2.0) mmol/L Calcium 8.3 L 8.4 (8.4-10.2) mg/dL Magnesium (1.6-2.3) mg/dL Total Bilirubin 1.4 H 1.1 (0.2-1.3) mg/dL Direct Bilirubin 0.0 (0-0.3) mg/dL AST 44 H 45 H (14-36) U/L ALT 24 22 (6-35) U/L Alkaline Phosphatase 93 96 (38-126) U/L Ammonia (9-30) umol/L Troponin I (0.000-0.034) ng/mL NT-Pro-B Natriuret Pep (19.9-100) pg/mL Total Protein 7.0 6.3 (6.3-8.2) g/dL Albumin 3.4 L 3.0 L (3.5-5.1) g/dL Lipase (23-300) U/L Urine Color (Yellow) Urine Appearance (Clear) Urine pH (5.0-9.0) Ur Specific [place] (1.001-1.035) Urine Protein (Negative) mg/dL Urine Glucose (UA) (Negative) mg/dL Urine Ketones (Negative) mg/dL Ur Blood (Man) (Negative) Urine Nitrate (Negative) Urine Bilirubin (Negative) Urine Urobilinogen (<2.0) mg/dL Add Ur Microanalysis Leukocyte Esterase Rfl (Negative) LAVON/UL Urine RBC (0-2) /hpf Urine WBC (0-3) /hpf Ur Squamous Epith Cells (Few) /hpf Urine Bacteria /hpf Urine Casts Urine Mucus /lpf POC Urine HCG, Qual (Negative) Fluid Glucose (.) mg/dL Fluid Total Protein (.) g/dL Fluid Albumin (Not Estab.) g/dL Fluid Amylase (.) U/L Peritoneal Source Peritoneal Color (Colorless) Peritoneal Appearance (Clear) Peritoneal RBC (0-49644) /uL Periton Nuc Cells (0-500) /uL Periton Neutrophils (0-25) % Periton Lymphocytes % Peritoneal Monocytes % Peritoneal Eosinophils % Periton Mesothelial % Periton Macrophages % Peritoneal Other Cells % Hepatitis C Ab Screen (Negative) Hepatitis C RNA Quant HCV RNA (PCR) log10 Hepatitis C Genotype <Femi Alberto MD - Last Filed: 07/05/25 19:34> Imaging Data Attestation: I personally reviewed and interpreted this imaging study as follows: <Ailin Trevino PA-C - Last Filed: 07/08/25 17:02> ECG Data EKG #1: Attestation: I personally reviewed and interpreted this ECG as follows: <Ailin Trevino PA-C - Last Filed: 07/08/25 17:02> ECG completion date: 07/05/25 <Ailin Trevino PA-C - Last Filed: 07/08/25 17:02> ECG completion time: 16:45 <Ailin Trevino PA-C - Last Filed: 07/08/25 17:02> EKG Interpretation: normal rate (90), sinus rhythm and non-specific ST changes <Ailin Trevino PA-C - Last Filed: 07/08/25 17:02> Discharge Plan Discharge Clinical Impression: Left sided abdominal pain, Abnormal urinalysis Abdominal ascites Qualifiers: Ascites type: other type Qualified Code(s): R18.8 - Other ascites Cirrhosis of liver Qualifiers: Hepatic cirrhosis type: other cirrhosis Qualified Code(s): K74.69 - Other cirrhosis of liver <Ailin Trevino PA-C - Last Filed: 07/08/25 17:02> Patient Disposition: Still a Patient <MARIN Cespedes Last Filed: 07/08/25 17:02> Condition: Stable <MARIN Cespedes Last Filed: 07/08/25 17:02>
--- OUTSIDE RECORDS SUMMARY | 2025-07-05 16:07 | XMS_ITS | Clinical Summary ---
Author Organization [facility] Address [address] [id number] Phone Care Team Providers Care Biology Lecturer Name Role Phone Winsome Zambrano MD, Nicholas Williamson Primary Care Provide r Allergies No known active allergies Medications lisinopriL (PRINIVIL,ZESTRIL ) 40 mg tabletIndications :Primary hypertension Take 1 tablet (40 mg total) by mouth daily 90 tablet 4 3 Active Protonix 40 mg EC tablet Take 1 tablet (40 mg total) by mouth daily 3 Active ALPRAZolam (XANAX) 1 mg tabletIndications :SUMMER (generalized anxiety disorder) Take 1 tablet (1 mg total) by mouth every 12 (twelve) hours as needed for anxiety 30 tablet 3 Active gabapentin (NEURONTIN) 100 mg capsuleIndication s:RLS (restless legs syndrome) Take 1 capsule (100 mg total) by mouth nightly 90 capsule 4 Active buPROPion SR (WELLBUTRIN SR) 200 mg 12 hr tabletIndications :Bipolar 1 disorder with moderate zia (HCC) Take 1 tablet by mouth twice daily 60 tablet 4 Active QUEtiapine (SEROquel) 100 mg tabletIndications :Bipolar 1 disorder with moderate zia (HCC) Take 1 tablet (100 mg total) by mouth 2 (two) times a day 180 tablet 3 5 10/05/19 26 Active valACYclovir (VALTREX) 1 gram tablet Take 2 tabs (2000 mg) 2 times a days for 1 day. 4 tablet 5 5 Active Active Problems Problem Noted Date Diagnosed Date RLS (restless legs syndrome) 02/17/2024 Primary hypertension 07/18/2023 Assessment & Plan (08/11/2023 2:07 PM GLOBAL COORDINATOR): Chronic stable Well controlled Continue current prescribed medications at current dose Colitis 01/25/2021 Assessment & Plan (01/25/2021 2:45 PM CDT): Advised to finish her antibiotics (she stopped at 4-5 days) She expressed understanding and will do this Class 2 severe obesity due t o excess calories with serious comorbidity and body mass index (BMI) of 39.0 to 39.9 in adult 01/25/2021 Assessment & Plan (02/17/2024 3:34 PM CDT): Monitor weight Assessment & Plan (08/11/2023 2:48 PM GLOBAL COORDINATOR): Monitor weight Assessment & Plan (07/18/2023 11:49 AM CDT): Has lost significant weight since her last visit Assessment & Plan (01/25/2021 2:41 PM CDT): Will attempt adipex to see if this helps curb her appetite She believes her other conditions will approve if she loses weight I instructed how this pill can sometimes induce other feelings of anxiety, etc and needs to stop if she becomes maniac with it I suspect her previous addrell prescription she was taken was more for weight loss than ADHD and this does not carry the euphoria effect of addrell Preventative health care 01/25/2021 Assessment & Plan (08/11/2023 2:47 PM GLOBAL COORDINATOR): Reviewed labs, screenings and vaccines Bipolar 1 disorder with moderate zia Assessment & Plan (02/17/2024 3:31 PM CDT): Chronic stable Well controlled Continue current prescribed medications seroquel at current dose Assessment & Plan (01/25/2021 2:40 PM CDT): Will try vilazadone first and see how this work to help treat this If not, we will go back to fatemeh Immunizations Immunization Administration Dates Next Due Influenza, Quadrivalent, Spl it, Preservative Free, Intramuscular 07/21/2023,06/17/2020,08/18/2019,06/26,07/29/2017 Influenza, Unspecified 07/30/2023,2022(Deferred: Patient Refused),08/08/2022,07/30/2022(Deferre d: Patient Refused) [employer] (J&J) SARS-CoV-2 Vaccination 01/24/2021 Tdap 08/11/2018 ZOSTER Recombinant 02/06/2024,07/30/2023, 023 Surgical History Surgery Date Site/Laterality Comments CHOLECYSTECTOMY SECTION Medical History Medical History Date Comments Anxiety Depression Colitis Seizures (HCC) Family History Medical History Relation Name Comments Hypertension Father Lung cancer Father Relation Name Status Comments Father Mother Alive Social History Tobacco Use Types Packs/Day Years Used Date Smoking Tobacco: Some Days Vaping Tobacco Cessation:Ready to Q uit: Yes; Counseling Given: Yes Comments:cutting back AUDIT-C Answer Date Recorded Q1: How often do you have a drink containing alc ohol? Monthly or less 02/17/2024 Q2: How many drinks containi ng alcohol do you have on a typical day when you are drinking? 1 or 2 02/17/2024 Q3: How often do you have si x or more drinks on one occasion? Never 02/17/2024 PHQ-2 Answer Date Recorded PHQ-2 Total Score (If total score is 3 or more points, staff should administer the PHQ-9) 0 02/17/2024 Comments Unknown Sex and Gender Information Value Date Recorded Sex Assigned at Not on file Legal Sex Female 11:54 AM CDT Gender Identity Not on file Sexual Orientation Not on file Obstetrics History Last Filed Vital Signs Vital Sign Reading Time Taken Comments Blood Pressure 138/78 08/11/2023 1:37 PM GLOBAL COORDINATOR Pulse 90 08/11/2023 1:37 PM GLOBAL COORDINATOR Temperature 36.7 C (98 F) 08/11/2023 1:37 PM GLOBAL COORDINATOR Respiratory Rate 18 08/11/2023 1:37 PM GLOBAL COORDINATOR Oxygen Saturation 98% 08/11/2023 1:37 PM GLOBAL COORDINATOR Inhaled Oxygen Concentration - - Weight 105.7 kg (233 lb) 02/17/2024 3:06 PM CDT Height 170.2 cm (5' 7) 02/17/2024 3:06 PM CDT Body Mass Index 36.49 02/17/2024 3:06 PM CDT Plan of Treatment Health Maintenance Due Date Last Done Comments Breast Cancer Screening-Mammogram 1970 Cervical Cancer Screening 1970 Colon Cancer Screening-Colonoscopy 1970 Hepatitis C Screening 1970 Hepatitis B Screening 01/18/1988 Pneumococcal vaccine <65 (1 of 2 - PCV) 1989 Regular Well Visit/Exam 18-64 08/11/2024 08/11/2023, 01/25/2021 Depression Screening 02/16/2025 02/17/2024, 09/15/2023, 08/11/2023, Additional history exists Covid-19 Vaccine (4 - 2024-2 6 season) 2025 03/26/2021, 02/23/2021, 01/24/2021 Influenza Vaccine (#1) 2025 , 07/21/2023, 08/08/2022, Additional history exists DTaP/Tdap/Td Vaccine (2 - Td or Tdap) 08/11/2028 08/11/2018 Zoster Vaccine Completed 02/06/2024, 1109/2022, 07/21/2023 Insurance [facility] Care Teams Biology Lecturer Relationship Specialty Start Date End Date Nicholas Schumacher Jr., MD [address] [place] [id number] PCP - General Internal Medicine 01/17/21
--- NOTE | 2025-07-05 16:25 | ECG_ITS ---
Test Date: 2025-07-05 16:45:25 Measurements Intervals [place] Rate: 90 P: 6 ND: 167 QRS: -4 QRSD: 106 T: 25 QT: 359 QTc: 440 Interpretive Statements SINUS RHYTHM POSSIBLE ANTERIOR MYOCARDIAL INFARCTION , PROBABLY OLD MINIMAL Q WAVES- HIGH LATERAL LEADS BASELINE ARTIFACT- I, II, AVR, AVL, AVF, V1-V6 ABNORMAL ECG No previous ECG available for comparison Electronically Signed On 07-05-2025 18:54:45 CDT by Varghese Lau D.O.
--- OUTSIDE RECORDS SUMMARY | 2025-07-05 16:41 | XMS_ITS | Clinical Summary ---
Author Organization [facility] Address [address] [address] Phone Care Team Providers Care Car Ferrier Name Role Phone Winsome Zambrano MD, Nicholas [...] 07/18/2023 Assessment & Plan (08/11/2023 2:07 PM ELECTRIC LINEMAN): Chronic stable Well controlled Continue current prescribed [...] weight Assessment & Plan (08/11/2023 2:48 PM ELECTRIC LINEMAN): Monitor weight Assessment & Plan (07/18/2023 11:49 [...] 01/25/2021 Assessment & Plan (08/11/2023 2:47 PM ELECTRIC LINEMAN): Reviewed labs, screenings and vaccines Bipolar 1 [...] Unspecified 07/30/2023,2022(Deferred: Patient Refused),08/08/2022,07/30/2022(Deferre d: Patient Refused) [employer] (J&J) SARS-CoV-2 Vaccination 01/24/2021 Tdap 08/11/2018 ZOSTER [...] Comments Blood Pressure 138/78 08/11/2023 1:37 PM ELECTRIC LINEMAN Pulse 90 08/11/2023 1:37 PM ELECTRIC LINEMAN Temperature 36.7 C (98 F) 08/11/2023 1:37 PM ELECTRIC LINEMAN Respiratory Rate 18 08/11/2023 1:37 PM ELECTRIC LINEMAN Oxygen Saturation 98% 08/11/2023 1:37 PM ELECTRIC LINEMAN Inhaled Oxygen Concentration - - Weight 105.7 [...] Zoster Vaccine Completed 02/06/2024, 1109/2022, 07/21/2023 Insurance [facility] Care Teams Car Ferrier Relationship Specialty Start Date End Date Nicholas Schumacher Jr., MD [address] [place] [id number] PCP - General Internal Medicine 01/17/21
[2025-07-05 16:57] LABS: BEDSIDEPREGUCG Negative (Negative)
[2025-07-05 16:59] LABS: Hematocrit 36.7 % (37.0-47.0); Hemoglobin 12.1 g/dL (12.0-15.0); Immature Granulocyte Percent A 0.3 % (0-0.5); Immature Platelet Fraction Pct 1.1 % (0.9-11.2); Lymphocytes Absolute Auto 1.48 K/mm3 (0.9-3.2); Mean Corpuscular HGB Conc 33.0 g/dl (32-36); Mean Corpuscular Hemoglobin 30.6 pg (26-34); Mean Corpuscular Volume 92.9 fl (80-100); Nucleated Red Blood Cells Absolute Auto 0.000 K/mm3 (0.0-0.012); Nucleated Red Blood Cells Perc 0.0 % (0.0-0.2); Platelet Count Result 133 k/mm3 (150-375); Red Blood Count 3.95 M/mm3 (4.2-5.4); White Blood Count 6.2 K/mm3 (4.5-10.0)
[2025-07-05 17:07] LABS: INR 1.2; Prothrombin Time 15.0 Seconds (11.1-14.7)
[2025-07-05 17:08] LABS: Partial Thromboplastin Time 28.9 Seconds (22.3-36.8)
[2025-07-05 17:20] LABS: NT Pro B Type Natriuretic Pept 130 pg/mL (19.9-100)
[2025-07-05 17:23] LABS: Alanine Aminotransferase 24 U/L (6-35); Albumin Level 3.1 g/dL (3.5-5.1); Alkaline Phosphatase 121 U/L (38-126); Anion Gap 4 mmol/L (4-12); Aspartate Amino Transferase 50 U/L (14-36); Bilirubin,Total 1.7 mg/dL (0.2-1.3); Blood Urea Nitrogen 9 mg/dL (7-17); Calcium 8.3 mg/dL (8.4-10.2); Carbon Dioxide 25 mmol/L (22-30); Chloride 105 mmol/L (98-107); Estimated CRCL calculation 105 ml/min; Estimated Glomerular Filt Rate > 60; Glucose 121 mg/dL (65-110); Lipase 178 U/L (23-300); Magnesium 2.0 mg/dL (1.6-2.3); Potassium 3.2 mmol/L (3.4-5.0); Sodium 134 mmol/L (137-145); Total Protein 7.3 g/dL (6.3-8.2)
[2025-07-05 17:37] LABS: Add Urine Microscopic? YES; Appearance Urine Cloudy (Clear); Glucose Urine UA Negative (Negative); Leukocyte Esterase Ur 1+ LEU/UL (Negative); Need Manual Microscopic Reviewed; Nitrate Urine Negative (Negative); Non Pathogenic Casts 0-2; Specific Grav Ur 1.024 (1.001-1.035)
[2025-07-05] MEDS: ONDANSETRON INJ 4 MG/2 ML VIAL IV PUSH (18:28)
[2025-07-05] MEDS: POTASSIUM CHLORIDE 20 MEQ ER TABLET 40 MEQ PO (18:28)
[2025-07-05] MEDS: MORPHINE SULFATE (*CRX) 4 MG/ML INJ IV PUSH ×2 (19:10→22:54)
[2025-07-05 19:46] LABS: Troponin I 0.022 ng/mL (0.000-0.034)
--- NOTE | 2025-07-05 19:46 | P.HP_ITS ---
H&P: HPI History of Present Illness Date/Time: 07/05/25 19:46 Chief Complaint: Left-sided rib pain Narrative: 55-year-old female with history of untreated hepatitis-C, cirrhosis, ascites, portal hypertension with history of upper esophageal bleed, anxiety, class 3 obesity, remote tobacco abuse, current nicotine pouch abuse, Presenting to [facility] ER on 07/05/2025 complaining of left-sided rib pain after a fall. She denied hitting her head. Remotely, she was diagnosed hepatitis-C and has since refuse treatment, she is amenable to treatment now. Of recent, she went to visit a grandchild in [place] since 12/2024. At that time she reports she has been a mess, she was hospitalized for upper gastrointestinal bleed, cirrhosis, ascites. They placed dissolvable bands in her esophagus, she has not had any vomiting since. She has been getting paracentesis every few weeks, last time was 1 week prior to admission. She just got back to [place], contacted GI doctor Ankit but has not seen him yet. She has not had her medications in 1 week due to logistical issues with [place] prescribers. She believes her abdomen is very distended when she is due for paracentesis. She has not taken her lactulose, she reports she sometimes repeats things and probably needs it. ER evaluation demonstrates a comfortable, pleasant, cooperative female. Elevated blood pressure 182/96 otherwise hemodynamically stable. INR 1.2, hemoglobin 12.1, white count 6200, sodium 134, potassium 3.2, serum creatinine 0.74, AST 50, ALT 24, total bilirubin 1.7, alkaline phosphatase 121, troponin within normal limit, BNP 130, albumin 3.1. Urinalysis abnormal with wbc's and bacteria but contaminated with squamous cells. Patient denies any urinary symptoms, chest pain, vision change, syncope, shortness of breath, vomiting or diarrhea, fever. She was given Zofran, potassium 40 mEq p.o. x1, ceftriaxone 2 g x 1, morphine 4 mg IV x1, Lasix 40 mg p.o. x1, spironolactone 100 mg p.o. x1. Review of Systems Review of Systems: All systems reviewed & are unremarkable except as noted in HPI and below (Subjective) Meds Home Medications and Allergies Allergies Allergy/AdvReac Type Severity Reaction Status Date / Time latex Allergy Unknown Rash Verified 07/05/25 15:33 Vital Signs Vital Signs - 24 hr 07/05/25 15:27 Temperature 98.9 F Pulse Rate 93 Respiratory Rate 20 Blood Pressure 182/96 H Pulse Oximetry 95 Oxygen Delivery Room Air Exam Const: General: comfortable and no acute distress Other: Spider angiomata, pleasant, cooperative HENMT: Mouth: Yes moist mucous membranes Eyes: Pupils: Equal, round and reactive pupils present Neck: Neck: supple Resp: Effort & Inspection: normal respiratory effort Auscultation: clear to auscultation bilaterally Cardio: Rate: regular rate Rhythm: regular rhythm Heart sounds: no murmurs GI: Other: Distended but soft, hypo tympanic to percussion diffusely, nontender, hypoactive bowel sounds. Umbilical hernia with purplish discoloration and engorged vein, no tenderness or erythema. : General: Yes bladder normal to palpation Neuro: Motor exam (neuro): 5/5 motor strength present throughout Extrem: Other: 2+ pitting edema bilateral lower extremi ties below the knees Psych: Mental Status: mental status grossly normal H&P: Results Labs Labs: Short CBC 07/05/25 Range/Units 16:49 WBC 6.2 (4.5-10.0) K/mm3 Hgb 12.1 (12.0-15.0) g/dL Hct 36.7 L (37.0-47.0) % Plt Count 133 L (150-375) k/mm3 BMP 07/05/25 16:49 Sodium 134 L Potassium 3.2 L Chloride 105 Carbon Dioxide 25 BUN 9 Creatinine 0.74 Glucose 121 H Calcium 8.3 L Cardiac Enzymes 07/05/25 Range/Units 16:49 Troponin I 0.022 (0.000-0.034) ng/mL Liver Function 07/05/25 Range/Units 16:49 Total Bilirubin 1.7 H (0.2-1.3) mg/dL AST 50 H (14-36) U/L ALT 24 (6-35) U/L Alkaline Phosphatase 121 (38-126) U/L Albumin 3.1 L (3.5-5.1) g/dL Urine 07/05/25 Range/Units 16:49 Urine Color Dark yellow (Yellow) Urine Appearance Cloudy H (Clear) Urine pH 6.5 (5.0-9.0) Ur Specific [place] 1.024 (1.001-1.035) Urine Protein Trace (Negative) mg/dL Urine Glucose (UA) Negative (Negative) mg/dL Assessment and Plan Assessment and plan (1) Cirrhosis of liver: Qualifiers: Hepatic cirrhosis type: other cirrhosis Qualified Code(s): K74.69 - Other cirrhosis of liver Code(s): K74.60 - Unspecified cirrhosis of liver Status: Acute (2) Abdominal ascites: Qualifiers: Ascites type: other type Qualified Code(s): R18.8 - Other ascites Code(s): R18.8 - Other ascites Status: Acute (3) Left sided abdominal pain: Code(s): R10.9 - Unspecified abdominal pain Status: Acute (4) Abnormal urinalysis: Code(s): R82.90 - Unspecified abnormal findings in urine Status: Acute Plan 55-year-old female with history of untreated hepatitis-C, cirrhosis, ascites, portal hypertension with history of upper esophageal bleed, anxiety, class 3 obesity, remote tobacco abuse, current nicotine pouch abuse, Presenting to [facility] ER on 07/05/2025 complaining of left-sided rib pain after a fall. She denied hitting her head. Remotely, she was diagnosed hepatitis-C and has since refuse treatment, she is amenable to treatment now. Of recent, she went to visit a grandchild in [place] since 12/2024. At that time she reports she has been a mess, she was hospitalized for upper gastrointestinal bleed, cirrhosis, ascites. They placed dissolvable bands in her esophagus, she has not had any vomiting since. She has been getting paracentesis every few weeks, last time was 1 week prior to admission. She just got back to [place], contacted GI doctor Ankit but has not seen him yet. She has not had her medications in 1 week due to logistical issues with [place] prescribers. She believes her abdomen is very distended when she is due for paracentesis. She has not taken her lactulose, she reports she sometimes repeats things and probably needs it. ER evaluation demonstrates a comfortable, pleasant, cooperative female. Elevated blood pressure 182/96 otherwise hemodynamically stable. INR 1.2, hemoglobin 12.1, white count 6200, sodium 134, potassium 3.2, serum creatinine 0.74, AST 50, ALT 24, total bilirubin 1.7, alkaline phosphatase 121, troponin within normal limit, BNP 130, albumin 3.1. Urinalysis abnormal with wbc's and bacteria but contaminated with squamous cells. Patient denies any urinary symptoms, chest pain, vision change, syncope, shortness of breath, vomiting or diarrhea, fever. CTA chest abdomen pelvis with contrast: 1. No pulmonary embolism or other acute cardiopulmonary disease. 2. Cirrhosis with stigmata of portal venous hypertension and large amount of ascites in the abdomen and pelvis. 3. Cardiomegaly and enlargement of the central pulmonary arteries consistent with pulmonary arterial hypertension. 4. Moderate-sized umbilical hernia containing ascites. She was given Zofran, potassium 40 mEq p.o. x1, morphine 4 mg IV x1, Lasix 40 mg p.o. x1, spironolactone 100 mg p.o. x1. ----- Hospitalist contacted for admission and paracentesis. Gastroenterology contacted from ER, they advised no need for antibiotics, restart her diuretics. Daily weights, intake/output. Low-sodium diet, NPO midnight. Paracentesis ordered. Follow-up on fluid studies. Prior to admission she is on propranolol 10 mg p.o. q.day, furosemide 40 mg p.o. q.day, spironolactone 100 mg p.o. q.day. Restart those, she has not taken them for a week. Check hepatitis-C viral load, follow GI recommendations for further treatment plan. Restart INTERIOR HORTICULTURIST lactulose. Check ammonia level Restart INTERIOR HORTICULTURIST quetiapine, bupropion, Xanax. Hypokalemia: replace and recheck. Hyponatremia: Mild, continue to monitor. Thrombocytopenia: Continue to monitor Follow-up urine and blood cultures. No antibiotics for now. ----- Low-sodium diet. NPO midnight Saline lock IV. SCDs. Patient wishes to be full code. Greater than 55 minutes spent on [id number] time, medical decision-making, coordination with nursing and ER staff. Hospitalist MIPS Advance Care Plan I have confirmed that the patient's Advanced Care Plan is present, code status is documented, or surrogate decision maker is listed in patient medical record.: Yes Medication Reconciliation I have utilized all available resources to obtain, update and review the patients current medications (includes all prescriptions, OTC, herbals, cannabis, and nutritional supplements).: Yes
[2025-07-05] MEDS: FUROSEMIDE 40 MG TABLET PO (19:52)
[2025-07-05] MEDS: SPIRONOLACTONE 50 MG TABLET 100 MG PO (19:53)
--- NOTE | 2025-07-05 21:58 | ADMGEN ---
This patient, Jil Esteves, was admitted to Medical Room 249-01. Patient/family oriented to hospital policies and general routines including ID bracelet, bed and alarms, visiting hours, pain management, procedures, bathroom and other care routines, personal items, smoking policy, room service/diet, and visiting hours. Information on how to activate the Rapid Response Team has been discussed. Patient/Family are encouraged to report perceived risks to care and to ask questions if they do not understand what they are told or what they should do.
[2025-07-06] VITALS (11 sets, daily range): BP systolic 122–142; BP diastolic 56–71; PULSE 71–88; RESP 18; TEMP 36.3–36.6; O2SAT 96–98
[2025-07-06] MEDS: MORPHINE SULFATE (*CRX) 4 MG/ML INJ IV PUSH ×6 (03:05→21:49)
[2025-07-06] MEDS: ONDANSETRON INJ 4 MG/2 ML VIAL IV PUSH ×4 (03:05→21:50)
[2025-07-06 04:59] LABS: Hematocrit 32.9 % (37.0-47.0); Hemoglobin 10.6 g/dL (12.0-15.0); Immature Granulocyte Percent A 0.4 % (0-0.5); Lymphocytes Absolute Auto 1.28 K/mm3 (0.9-3.2); Mean Corpuscular HGB Conc 32.2 g/dl (32-36); Mean Corpuscular Hemoglobin 30.2 pg (26-34); Mean Corpuscular Volume 93.7 fl (80-100); Nucleated Red Blood Cells Absolute Auto 0.000 K/mm3 (0.0-0.012); Nucleated Red Blood Cells Perc 0.0 % (0.0-0.2); Platelet Count Result 100 k/mm3 (150-375); Red Blood Count 3.51 M/mm3 (4.2-5.4); White Blood Count 5.0 K/mm3 (4.5-10.0)
[2025-07-06 05:08] LABS: Ammonia 34 umol/L (9-30)
[2025-07-06 05:11] LABS: Alanine Aminotransferase 21 U/L (6-35); Albumin Level 2.7 g/dL (3.5-5.1); Alkaline Phosphatase 101 U/L (38-126); Anion Gap 3 mmol/L (4-12); Aspartate Amino Transferase 45 U/L (14-36); Bilirubin,Total 1.9 mg/dL (0.2-1.3); Blood Urea Nitrogen 9 mg/dL (7-17); Calcium 7.9 mg/dL (8.4-10.2); Carbon Dioxide 26 mmol/L (22-30); Chloride 103 mmol/L (98-107); Estimated CRCL calculation 105 ml/min; Estimated Glomerular Filt Rate > 60; Glucose 101 mg/dL (65-110); INR 1.2; Magnesium 1.9 mg/dL (1.6-2.3); Potassium 3.5 mmol/L (3.4-5.0); Prothrombin Time 15.7 Seconds (11.1-14.7); Sodium 132 mmol/L (137-145); Total Protein 6.5 g/dL (6.3-8.2)
--- NOTE | 2025-07-06 06:13 | WPDGICN ---
Assessment and Plan Assessment and plan (1) Cirrhosis of liver: Qualifiers: Hepatic cirrhosis type: other cirrhosis Qualified Code(s): K74.69 - Other cirrhosis of liver Code(s): K74.60 - Unspecified cirrhosis of liver Status: Acute Assessment and Plan: The underlying etiology for the patient's decompensation is advanced cirrhosis due to untreated hepatitis C, which is likely exacerbated by her morbid obesity and features consistent with MASLD. The immediate management plan is : first, perform a large volume paracentesis with appropriate albumin replacement today; second, reinstitute diuretic therapy using spironolactone 100 mg daily and furosemide 40 mg daily; and third, update the hepatitis C viral load pursue antiviral treatment. Importantly, her clinical picture suggests she might be a good candidate for liver transplantation. We will discuss this option with her today and facilitate a referral to a transplant center. (2) Abdominal ascites: Qualifiers: Ascites type: other type Qualified Code(s): R18.8 - Other ascites Code(s): R18.8 - Other ascites Status: Acute GI Consult Note Consult date/time: 07/06/25 06:13 Reason for consult: Decompensated cirrhosis HPI: Jil Esteves is a 55-year-old woman with a history of untreated hepatitis C whose health rapidly declined within the last few months, beginning shortly after a trip in December. This deterioration is characterized by recurrent episodes of hepatic decompensation, including upper GI bleeding that required esophageal variceal ligation and, most significantly, the development of refractory ascites necessitating multiple hospitalizations for large volume paracentesis. She reports inconsistent adherence to prescribed diuretics due to administrative medication delivery problems. She was admitted last night with massive ascites causing severe abdominal discomfort. Relevant admission laboratory data included: Hemoglobin 12.1, platelets 133, INR 1.2, sodium 134, creatinine 0.74, total bilirubin 1.7, AST 50, ALT 24, and albumin 3.1. A CT scan of the abdomen confirmed the findings of cirrhosis, splenomegaly, massive ascites, and a large umbilical hernia Review of Systems Review of Systems: All systems reviewed & are unremarkable except as noted in HPI and below PMFSH Family History Family History (Updated 07/05/25 @ 22:30 by Gabby Odonenll RN) Father Lung cancer Social History Social History Smoking status: Former smoker Lack of Transportation: No Lack of Food: Never True Current Housing: I Have Housing Concerned About Future Housing: No Difficulty Paying Gas/Electric Bills: No Difficulty Paying for Meds: No Currently Unemployed: No Education: High School Diploma/GED Difficulty w/ Childcare or Family Care: No Spiritual care concerns: No Meds Home Medications and Allergies Home Medications ?Medication ?Instructions ?Recorded ?Confirmed ?Type alprazolam 1 mg tablet 1 mg PO BID PRN anxiety 07/05/25 07/05/25 History bupropion HCl 200 mg tablet,12 hr 200 mg PO Q12H 07/05/25 07/05/25 History sustained-release furosemide 20 mg tablet 40 mg PO DAILY 07/05/25 07/05/25 History lactulose 10 gram/15 mL oral 30 ml PO TID 07/05/25 07/05/25 History solution (Constulose) levothyroxine 50 mcg tablet 50 mcg PO DAILY 07/05/25 07/05/25 History mupirocin 2 % topical ointment 1 applic topical TID 07/05/25 07/05/25 History ondansetron 4 mg disintegrating 4 mg PO TID PRN nausea and vomiting 07/05/25 07/05/25 History tablet pantoprazole 40 mg tablet,delayed 40 mg PO Q12H 07/05/25 07/05/25 History release quetiapine 100 mg tablet 200 mg PO HS 07/05/25 07/05/25 History sertraline 50 mg tablet 50 mg PO DAILY 07/05/25 07/05/25 History Allergies Allergy/AdvReac Type Severity Reaction Status Date / Time adhesive tape AdvReac Intermediate blister Verified 07/05/25 22:18 Vital Signs Vital Signs - 24 hr 07/05/25 15:27 07/05/25 18:44 07/05/25 19:24 Temperature 98.9 F Pulse Rate 93 78 82 Respiratory Rate 20 18 16 Blood Pressure 182/96 H 140/82 146/89 H Pulse Oximetry 95 100 100 Oxygen Delivery Room Air 07/05/25 21:06 07/05/25 21:47 07/05/25 22:00 Temperature 97.7 F Pulse Rate 78 74 79 Respiratory Rate 14 19 18 Blood Pressure 155/95 H 132/87 148/72 H Pulse Oximetry 100 99 99 Oxygen Delivery 07/05/25 22:28 07/06/25 01:18 07/06/25 04:00 Temperature Pulse Rate 77 86 73 Respiratory Rate Blood Pressure Pulse Oximetry Oxygen Delivery Results Labs 07/06/25 04:38 07/06/25 04:38 Labs: Short CBC 07/05/25 07/06/25 Range/Units 16:49 04:38 WBC 6.2 5.0 (4.5-10.0) K/mm3 Hgb 12.1 10.6 L (12.0-15.0) g/dL Hct 36.7 L 32.9 L (37.0-47.0) % Plt Count 133 L 100 L (150-375) k/mm3 BMP 07/05/25 07/06/25 16:49 04:38 Sodium 134 L 132 L Potassium 3.2 L 3.5 Chloride 105 103 Carbon Dioxide 25 26 BUN 9 9 Creatinine 0.74 0.74 Glucose 121 H 101 Calcium 8.3 L 7.9 L Cardiac Enzymes 07/05/25 Range/Units 16:49 Troponin I 0.022 (0.000-0.034) ng/mL Liver Function 07/05/25 07/06/25 Range/Units 16:49 04:38 Total Bilirubin 1.7 H 1.9 H (0.2-1.3) mg/dL AST 50 H 45 H (14-36) U/L ALT 24 21 (6-35) U/L Alkaline Phosphatase 121 101 (38-126) U/L Albumin 3.1 L 2.7 L (3.5-5.1) g/dL Urine 07/05/25 Range/Units 16:49 Urine Color Dark yellow (Yellow) Urine Appearance Cloudy H (Clear) Urine pH 6.5 (5.0-9.0) Ur Specific [place] 1.024 (1.001-1.035) Urine Protein Trace (Negative) mg/dL Urine Glucose (UA) Negative (Negative) mg/dL
[2025-07-06] MEDS: LACTULOSE 20 GM/30 ML UDC PO ×2 (06:19→14:15)
[2025-07-06] MEDS: LEVOTHYROXINE SODIUM 50 MCG TABLET PO (06:19)
[2025-07-06] MEDS: SPIRONOLACTONE 50 MG TABLET 100 MG PO (08:14)
[2025-07-06] MEDS: SERTRALINE HCL 50 MG TABLET PO (08:14)
[2025-07-06] MEDS: buPROPion HCL SR (12HR) 100 MG TABCR 200 MG PO (08:14)
[2025-07-06] MEDS: FUROSEMIDE 40 MG TABLET PO (08:14)
--- NOTE | 2025-07-06 09:02 | PM.IMPN ---
Progress Note: A&P Assessment and Plan (1) Cirrhosis of liver: Qualifiers: Hepatic cirrhosis type: other cirrhosis Qualified Code(s): K74.69 - Other cirrhosis of liver Code(s): K74.60 - Unspecified cirrhosis of liver Status: Acute (2) Abdominal ascites: Qualifiers: Ascites type: other type Qualified Code(s): R18.8 - Other ascites Code(s): R18.8 - Other ascites Status: Acute (3) Left sided abdominal pain: Code(s): R10.9 - Unspecified abdominal pain Status: Acute (4) Abnormal urinalysis: Code(s): R82.90 - Unspecified abnormal findings in urine Status: Acute Plan 55-year-old female with history of untreated hepatitis-C, cirrhosis, ascites, portal hypertension with history of upper esophageal bleed s/p banding in [place] 12/2024, anxiety, class 3 obesity, remote tobacco abuse, current nicotine abuse, Presenting to [facility] ER on 07/05/2025 complaining of left-sided rib pain after a fall, did not hit her head. Had large volume ascites on admission . CTA chest abdomen pelvis with contrast: 1. No pulmonary embolism or other acute cardiopulmonary disease. 2. Cirrhosis with stigmata of portal venous hypertension and large amount of ascites in the abdomen and pelvis. 3. Cardiomegaly and enlargement of the central pulmonary arteries consistent with pulmonary arterial hypertension. 4. Moderate-sized umbilical hernia containing ascites. Cirrhosis Ascites Has been getting a paracentesis every few weeks, last 1 week prior to admission Out of medications for a week prior to admission GI consulted, appreciate recommendations s/p paracentesis 07/06, 6L off. Albumin post procedure Low sodium diet Follow LFT's, Bili 1.8<1.9 Continue lactulose Continue Furosemide, spironolactone Hepatitis C Outpatient follow up with GI Check hepatitis-C viral load Anxiety Continue home quetiapine, bupropion, Xanax. Hypokalemia: replace and recheck. Hyponatremia: Mild, continue to monitor. Thrombocytopenia: Continue to monitor Follow-up urine and blood cultures. No antibiotics for now. Low-sodium diet. NPO midnight Saline lock IV. SCDs. FULL CODE Greater than 55 minutes spent on [id number] time, medical decision-making, coordination with nursing and ER staff. Time Spent With Patient Time: 59 minutes Subjective Date/time seen: 07/06/25 09:02 Interval history: S/p paracentesis today, 6L off. Giving albumin Reporting lower abdominal pain improved but still having LUQ pain. Adjusted pain regimen Denies BM today, on lactulose, monitoring Review of Systems Review of Systems: All systems reviewed & are unremarkable except as noted in HPI and below (Subjective) Exam Narrative: General - Awake and alert. No acute distress Eyes - PERRLA, EOM intact ENT - No thrush, No erythema Neck - No noticeable or palpable swelling Lymph Nodes - No lymphadenopathy Cardiovascular - RRR no m/r/g, no JVD Lungs: Clear to auscultation, No wheezing, use of accessory muscles, no crackles Skin - Skin warm and dry, no wounds or rashes Abdomen - Normal bowel sounds, abdomen soft and nontender, distended Extremities - No edema, cyanosis or clubbing Musculoskeletal - 5/5 strength, normal range of motion, no swollen or erythematous joints. Neurological ? Alert and oriented x 3, CN 2-12 grossly intact. Psych: Normal mood and affect Objective Data Vital Signs Vital Signs: Vital Signs - 24 hr 07/05/25 15:27 07/05/25 18:44 07/05/25 19:24 Temperature 98.9 F Pulse Rate 93 78 82 Respiratory Rate 20 18 16 Blood Pressure 182/96 H 140/82 146/89 H Pulse Oximetry 95 100 100 Oxygen Delivery Room Air 07/05/25 21:06 07/05/25 21:47 07/05/25 22:00 Temperature 97.7 F Pulse Rate 78 74 79 Respiratory Rate 14 19 18 Blood Pressure 155/95 H 132/87 148/72 H Pulse Oximetry 100 99 99 Oxygen Delivery 07/05/25 22:28 07/06/25 01:18 07/06/25 04:00 Temperature Pulse Rate 77 86 73 Respiratory Rate Blood Pressure Pulse Oximetry Oxygen Delivery 07/06/25 06:00 07/06/25 07:45 07/06/25 08:13 Temperature 97.8 F Pulse Rate 71 72 Respiratory Rate 18 Blood Pressure 125/56 L 129/71 Pulse Oximetry 98 97 Oxygen Delivery Room Air Meds/Results Medications: Active Medications Generic Name Dose Route Start Last Admin Trade Name Freq PRN Reason Stop Dose Admin Alprazolam 1 mg 07/06/25 01:09 Alprazolam (*Crx) 0.5 Mg Tablet PO BID PRN Anxiety Bupropion HCl 200 mg 07/06/25 09:00 07/06/25 08:14 Bupropion Hcl Sr (12hr) 100 Mg Tabcr PO 200 mg Q12HR LEONID Administration Dextrose 12.5 gm 07/05/25 19:24 Dextrose 50% 25 Gm/50 Ml Syringe IV PUSH PRN PRN Hypoglycemia Protocol Furosemide 40 mg 07/06/25 09:00 07/06/25 08:14 Furosemide 40 Mg Tablet PO 40 mg DAILY LEONID Administration Glucagon 1 mg 07/05/25 19:24 Glucagon For Inj 1 Mg Vial IM PRN PRN Hypoglycemia Protocol Glucose 15 gm 07/05/25 19:24 Glucose Oral Gel 15 Gm Of Glucse In 37.5 Gm Tube PO PRN PRN Hypoglycemia Protocol Dextrose 1,000 mls @ 100 mls/hr 07/05/25 19:24 Dextrose 5% 1,000 Ml IVPB PRN PRN Hypoglycemia Protocol Lactulose 20 gm 07/06/25 06:00 07/06/25 06:19 Lactulose 20 Gm/30 Ml Udc PO 20 gm Q8HR LEONID Administration Levothyroxine Sodium 50 mcg 07/06/25 06:30 07/06/25 06:19 Levothyroxine Sodium 50 Mcg Tablet PO 50 mcg DAILY@0630 LEONID Administration Morphine Sulfate 4 mg 07/05/25 19:24 07/06/25 07:44 Morphine Sulfate (*Crx) 4 Mg/Ml Inj IV PUSH 4 mg Q2H PRN Administration Pain Rated 7-10 Ondansetron HCl 4 mg 07/05/25 19:24 07/06/25 07:44 Ondansetron Inj 4 Mg/2 Ml Vial IV PUSH 4 mg Q4H PRN Administration Nausea Quetiapine Fumarate 200 mg 07/06/25 21:00 Quetiapine Fumarate 100 Mg Tablet PO HS LEONID Sertraline HCl 50 mg 07/06/25 09:00 07/06/25 08:14 Sertraline Hcl 50 Mg Tablet PO 50 mg DAILY LEONID Administration Spironolactone 100 mg 07/06/25 09:00 07/06/25 08:14 Spironolactone 50 Mg Tablet PO 100 mg QAM LEONID Administration Radiology Results: ITS Impressions Chest/Abdomen/Pelvis CTA 07/05/25 18:58 IMPRESSION: 1. No pulmonary embolism or other acute cardiopulmonary disease. 2. Cirrhosis with stigmata of portal venous hypertension and large amount of ascites in the abdomen and pelvis. 3. Cardiomegaly and enlargement of the central pulmonary arteries consistent with pulmonary arterial hypertension. 4. Moderate-sized umbilical hernia containing ascites. Chest X-Ray 07/06/25 08:47 IMPRESSION: 1. No definite acute cardiopulmonary findings given portable technique. Recommend short interval follow-up repeat x-ray. Labs Labs: Laboratory Results - last 24 hr 07/05/25 07/05/25 07/06/25 16:49 16:50 04:38 WBC 6.2 5.0 RBC 3.95 L 3.51 L Hgb 12.1 10.6 L Hct 36.7 L 32.9 L MCV 92.9 93.7 MCH 30.6 30.2 MCHC 33.0 32.2 RDW 15.3 H 15.5 H Plt Count 133 L 100 L MPV 9.7 9.5 Immature Gran % (Auto) 0.3 0.4 Neut % (Auto) 59.2 58.7 Lymph % (Auto) 23.8 25.4 [place] % (Auto) 13.8 H 13.1 H Eos % (Auto) 1.8 1.6 Baso % (Auto) 1.1 0.8 Lymph # (Auto) 1.48 1.28 [place] # (Auto) 0.9 H 0.7 H Eos # (Auto) 0.1 0.1 Baso # (Auto) 0.1 0.0 Abs Immat Gran (auto) 0.02 0.02 Absolute Neuts (auto) 3.7 3.0 Absolute Nucleated RBC 0.000 0.000 Nucleated RBC % 0.0 0.0 % Immature Plt Fraction 1.1 PT 15.0 H 15.7 H INR 1.2 1.2 APTT 28.9 Sodium 134 L 132 L Potassium 3.2 L 3.5 Chloride 105 103 Carbon Dioxide 25 26 Anion Gap 4 3 L BUN 9 9 Creatinine 0.74 0.74 Estim Creat Clear Calc 105 105 Estimated GFR > 60 > 60 Glucose 121 H 101 Lactic Acid 1.2 Calcium 8.3 L 7.9 L Magnesium 2.0 1.9 Total Bilirubin 1.7 H 1.9 H AST 50 H 45 H ALT 24 21 Alkaline Phosphatase 121 101 Ammonia 34 H Troponin I 0.022 NT-Pro-B Natriuret Pep 130 H Total Protein 7.3 6.5 Albumin 3.1 L 2.7 L Lipase 178 Urine Color Dark yellow Urine Appearance Cloudy H Urine pH 6.5 Ur Specific [place] 1.024 Urine Protein Trace Urine Glucose (UA) Negative Urine Ketones Trace H Ur Blood (Man) Negative Urine Nitrate Negative Urine Bilirubin 1+ H Urine Urobilinogen 1.0 Add Ur Microanalysis Reviewed Leukocyte Esterase Rfl 1+ H Urine RBC 6-10 H Urine WBC 21-50 H Ur Squamous Epith Cells Moderate Urine Bacteria 2+ H Urine Casts 0-2 Urine Mucus Present POC Urine HCG, Qual Negative Hospitalist MIPS Advance Care Plan I have confirmed that the patient's Advanced Care Plan is present, code status is documented, or surrogate decision maker is listed in patient medical record.: Yes Medication Reconciliation I have utilized all available resources to obtain, update and review the patients current medications (includes all prescriptions, OTC, herbals, cannabis, and nutritional supplements).: Yes
--- NOTE | 2025-07-06 13:46 | CY_PTH ---
PATIENT: Jil Esteves LOC: [id number] U#:[id number] AGE/SX: 55/F ROOM: 249 RE07/08/[address]: Josemanuel Javier MD : 1970 BED: 01 DIS: 07/12/2025 SPEC #: [id number] RECD: 07/07/25 12:06 STATUS: KATIA REEdin #: [id number] MONIQUE: 07/06/25 13:[address]: Ailin Trevino DEPT: [facility] Cytology RECD BY: Sara Sage ENTERED: 07/07/25 12:07 SP TYPE: Cytology OTHR DR: MD Nicholas Nevarez, , MD Dian Pugh, SKINNY Tissues: A - Ascites Fluid Procedures: Hematoxylin and Eosin Stain Cell Block Cytopathology Cytospin
[2025-07-06] MEDS: ALBUMIN HUMAN 25% 25 GM/100 ML 100 ML IVPB ×2 (15:11→20:39)
--- NOTE | 2025-07-06 15:14 | WPDGIPROGNO ---
Progress Note: A&P Assessment and Plan (1) Abdominal ascites: Qualifiers: Ascites type: other type Qualified Code(s): R18.8 - Other ascites Code(s): R18.8 - Other ascites Status: Acute Assessment and Plan: Patient with untreated hepatitis C and decompensated cirrhosis, status post paracentesis. Plan - Administer Albumin 25 grams now, and 25 grams 6 hours later - Continue diuretics - Patient can be discharged home tomorrow, she has an upcoming appt on 07/13 in GI clinic Subjective Date/time seen: 07/06/25 15:14 Interval history: patient underwent paracentesis extracted 6 L of clear fluid. Fluid analysis is still pending. Patient feels much relieved. Objective Data Vital Signs Vital Signs: Vital Signs - 24 hr 07/05/25 15:27 07/05/25 18:44 07/05/25 19:24 Temperature 98.9 F Pulse Rate 93 78 82 Respiratory Rate 20 18 16 Blood Pressure 182/96 H 140/82 146/89 H Pulse Oximetry 95 100 100 Oxygen Delivery Room Air 07/05/25 21:06 07/05/25 21:47 07/05/25 22:00 Temperature 97.7 F Pulse Rate 78 74 79 Respiratory Rate 14 19 18 Blood Pressure 155/95 H 132/87 148/72 H Pulse Oximetry 100 99 99 Oxygen Delivery 07/05/25 22:28 07/06/25 01:18 07/06/25 04:00 Temperature Pulse Rate 77 86 73 Respiratory Rate Blood Pressure Pulse Oximetry Oxygen Delivery 07/06/25 06:00 07/06/25 07:45 07/06/25 08:00 Temperature 97.8 F Pulse Rate 71 72 Respiratory Rate 18 Blood Pressure 125/56 L Pulse Oximetry 98 97 Oxygen Delivery Room Air 07/06/25 08:00 07/06/25 08:13 07/06/25 12:00 Temperature Pulse Rate 72 77 Respiratory Rate Blood Pressure 129/71 Pulse Oximetry Oxygen Delivery Room Air Intake/Output Intake/Output: Intake & Output 07/03/25 07/04/25 07/05/25 07/06/25 23:59 23:59 23:59 23:59 Output Total 6000 Balance -6000 Meds/Results Medications: Active Medications Generic Name Dose Route Start Last Admin Trade Name Freq PRN Reason Stop Dose Admin Alprazolam 1 mg 07/06/25 01:09 Alprazolam (*Crx) 0.5 Mg Tablet PO BID PRN Anxiety Bupropion HCl 200 mg 07/06/25 09:00 07/06/25 08:14 Bupropion Hcl Sr (12hr) 100 Mg Tabcr PO 200 mg Q12HR LEONID Administration Dextrose 12.5 gm 07/05/25 19:24 Dextrose 50% 25 Gm/50 Ml Syringe IV PUSH PRN PRN Hypoglycemia Protocol Furosemide 40 mg 07/06/25 09:00 07/06/25 08:14 Furosemide 40 Mg Tablet PO 40 mg DAILY LEONID Administration Glucagon 1 mg 07/05/25 19:24 Glucagon For Inj 1 Mg Vial IM PRN PRN Hypoglycemia Protocol Glucose 15 gm 07/05/25 19:24 Glucose Oral Gel 15 Gm Of Glucse In 37.5 Gm Tube PO PRN PRN Hypoglycemia Protocol Dextrose 1,000 mls @ 100 mls/hr 07/05/25 19:24 Dextrose 5% 1,000 Ml IVPB PRN PRN Hypoglycemia Protocol Albumin Human 100 mls @ 60 mls/hr 07/06/25 14:55 07/06/25 15:11 Albutein IVPB 07/06/25 16:34 60 mls/hr ONCE STA Administration Albumin Human 100 mls @ 60 mls/hr 07/06/25 21:00 Albutein IVPB 07/06/25 22:39 ONCE ONE Lactulose 20 gm 07/06/25 06:00 07/06/25 14:15 Lactulose 20 Gm/30 Ml Udc PO 20 gm Q8HR LEONID Administration Levothyroxine Sodium 50 mcg 07/06/25 06:30 07/06/25 06:19 Levothyroxine Sodium 50 Mcg Tablet PO 50 mcg DAILY@0630 LEONID Administration Morphine Sulfate 4 mg 07/05/25 19:24 07/06/25 13:23 Morphine Sulfate (*Crx) 4 Mg/Ml Inj IV PUSH 4 mg Q2H PRN Administration Pain Rated 7-10 Ondansetron HCl 4 mg 07/05/25 19:24 07/06/25 07:44 Ondansetron Inj 4 Mg/2 Ml Vial IV PUSH 4 mg Q4H PRN Administration Nausea Quetiapine Fumarate 200 mg 07/06/25 21:00 Quetiapine Fumarate 100 Mg Tablet PO HS LEONID Sertraline HCl 50 mg 07/06/25 09:00 07/06/25 08:14 Sertraline Hcl 50 Mg Tablet PO 50 mg DAILY LEONID Administration Spironolactone 100 mg 07/06/25 09:00 07/06/25 08:14 Spironolactone 50 Mg Tablet PO 100 mg QAM LEONID Administration Radiology Results: ITS Impressions Chest/Abdomen/Pelvis CTA 07/05/25 18:58 IMPRESSION: 1. No pulmonary embolism or other acute cardiopulmonary disease. 2. Cirrhosis with stigmata of portal venous hypertension and large amount of ascites in the abdomen and pelvis. 3. Cardiomegaly and enlargement of the central pulmonary arteries consistent with pulmonary arterial hypertension. 4. Moderate-sized umbilical hernia containing ascites. Chest X-Ray 07/06/25 08:47 IMPRESSION: 1. No definite acute cardiopulmonary findings given portable technique. Recommend short interval follow-up repeat x-ray. Paracentesis Ultrasound 07/06/25 14:19 IMPRESSION: 1. Successful ultrasound-guided paracentesis yielding 6000 mL of clear yellow fluid. Labs Labs: Laboratory Results - last 24 hr 07/05/25 07/05/25 07/06/25 16:49 16:50 04:33 WBC 6.2 RBC 3.95 L Hgb 12.1 Hct 36.7 L MCV 92.9 MCH 30.6 MCHC 33.0 RDW 15.3 H Plt Count 133 L MPV 9.7 Immature Gran % (Auto) 0.3 Neut % (Auto) 59.2 Lymph % (Auto) 23.8 [place] % (Auto) 13.8 H Eos % (Auto) 1.8 Baso % (Auto) 1.1 Lymph # (Auto) 1.48 [place] # (Auto) 0.9 H Eos # (Auto) 0.1 Baso # (Auto) 0.1 Abs Immat Gran (auto) 0.02 Absolute Neuts (auto) 3.7 Absolute Nucleated RBC 0.000 Nucleated RBC % 0.0 % Immature Plt Fraction 1.1 PT 15.0 H INR 1.2 APTT 28.9 Sodium 134 L Potassium 3.2 L Chloride 105 Carbon Dioxide 25 Anion Gap 4 BUN 9 Creatinine 0.74 Estim Creat Clear Calc 105 Estimated GFR > 60 Glucose 121 H Lactic Acid 1.2 Calcium 8.3 L Magnesium 2.0 Total Bilirubin 1.7 H AST 50 H ALT 24 Alkaline Phosphatase 121 Ammonia Troponin I 0.022 NT-Pro-B Natriuret Pep 130 H Total Protein 7.3 Albumin 3.1 L Lipase 178 Urine Color Dark yellow Urine Appearance Cloudy H Urine pH 6.5 Ur Specific [place] 1.024 Urine Protein Trace Urine Glucose (UA) Negative Urine Ketones Trace H Ur Blood (Man) Negative Urine Nitrate Negative Urine Bilirubin 1+ H Urine Urobilinogen 1.0 Add Ur Microanalysis Reviewed Leukocyte Esterase Rfl 1+ H Urine RBC 6-10 H Urine WBC 21-50 H Ur Squamous Epith Cells Moderate Urine Bacteria 2+ H Urine Casts 0-2 Urine Mucus Present POC Urine HCG, Qual Negative Hepatitis C Ab Screen Reactive 07/06/25 04:38 WBC 5.0 RBC 3.51 L Hgb 10.6 L Hct 32.9 L MCV 93.7 MCH 30.2 MCHC 32.2 RDW 15.5 H Plt Count 100 L MPV 9.5 Immature Gran % (Auto) 0.4 Neut % (Auto) 58.7 Lymph % (Auto) 25.4 [place] % (Auto) 13.1 H Eos % (Auto) 1.6 Baso % (Auto) 0.8 Lymph # (Auto) 1.28 [place] # (Auto) 0.7 H Eos # (Auto) 0.1 Baso # (Auto) 0.0 Abs Immat Gran (auto) 0.02 Absolute Neuts (auto) 3.0 Absolute Nucleated RBC 0.000 Nucleated RBC % 0.0 % Immature Plt Fraction PT 15.7 H INR 1.2 APTT Sodium 132 L Potassium 3.5 Chloride 103 Carbon Dioxide 26 Anion Gap 3 L BUN 9 Creatinine 0.74 Estim Creat Clear Calc 105 Estimated GFR > 60 Glucose 101 Lactic Acid Calcium 7.9 L Magnesium 1.9 Total Bilirubin 1.9 H AST 45 H ALT 21 Alkaline Phosphatase 101 Ammonia 34 H Troponin I NT-Pro-B Natriuret Pep Total Protein 6.5 Albumin 2.7 L Lipase Urine Color Urine Appearance Urine pH Ur Specific [place] Urine Protein Urine Glucose (UA) Urine Ketones Ur Blood (Man) Urine Nitrate Urine Bilirubin Urine Urobilinogen Add Ur Microanalysis Leukocyte Esterase Rfl Urine RBC Urine WBC Ur Squamous Epith Cells Urine Bacteria Urine Casts Urine Mucus POC Urine HCG, Qual Hepatitis C Ab Screen
[2025-07-06 15:16] LABS: Source Peritoneal Fluid Peritoneal Fluid
[2025-07-06 15:17] LABS: Appearance Peritoneal Fluid Clear (Clear); Color Peritoneal Fluid Yellow (Colorless); Eosinophils Peritoneal Fluid 0 %; Lymphocytes Peritoneal Fluid 18 %; Macrophages Peritoneal Fluid 40 %; Mesothelial Cells Peritoneal Fluid 23 %; Monocytes Peritoneal Fluid 14 %; Neutrophils Peritoneal Fluid 5 % (0-25); Nucleated Cells Peritoneal Flu 161 /uL (0-500)
[2025-07-06 15:18] LABS: Other Cells Peritoneal Fluid 0 %
[2025-07-06] MEDS: oxyCODONE HCL (*CRX) 5 MG TAB IR 10 MG PO (18:37)
[2025-07-06] MEDS: ALPRAZolam (*CRX) 0.5 MG TABLET 1 MG PO (20:42)
--- NOTE | 2025-07-06 20:54 | PC.NURSE ---
PT REFUSES WELBUTRIN AND LACTULOSE. [employer] TECHNICIAN NOTIFIED
[2025-07-07] VITALS (11 sets, daily range): BP systolic 110–124; BP diastolic 56–59; PULSE 76–97; RESP 16–18; TEMP 36.4–36.7; O2SAT 92–99
[2025-07-07] MEDS: oxyCODONE HCL (*CRX) 5 MG TAB IR 10 MG PO ×4 (00:19→13:35)
[2025-07-07] MEDS: LEVOTHYROXINE SODIUM 50 MCG TABLET PO (06:51)
[2025-07-07] MEDS: LACTULOSE 20 GM/30 ML UDC PO (06:51)
[2025-07-07] MEDS: MUPIROCIN 2% OINT 22 GM TUBE 1 APPLIC TOPICAL (08:34)
[2025-07-07] MEDS: SERTRALINE HCL 50 MG TABLET PO (08:34)
[2025-07-07] MEDS: SPIRONOLACTONE 50 MG TABLET 100 MG PO (08:35)
[2025-07-07] MEDS: FUROSEMIDE 40 MG TABLET PO (08:35)
[2025-07-07] MEDS: buPROPion HCL SR (12HR) 100 MG TABCR 200 MG PO (08:35)
--- NOTE | 2025-07-07 09:02 | P.PNIM_ITS ---
Progress Note: A&P Assessment and Plan (1) Cirrhosis of liver: Qualifiers: Hepatic cirrhosis type: other cirrhosis Qualified Code(s): K74.69 - Other cirrhosis of liver Code(s): K74.60 - Unspecified cirrhosis of liver Status: Acute (2) Abdominal ascites: Qualifiers: Ascites type: other type Qualified Code(s): R18.8 - Other ascites Code(s): R18.8 - Other ascites Status: Acute (3) Left sided abdominal pain: Code(s): R10.9 - Unspecified abdominal pain Status: Acute (4) Abnormal urinalysis: Code(s): R82.90 - Unspecified abnormal findings in urine Status: Acute Plan 55-year-old female with history of untreated hepatitis-C, cirrhosis, ascites, portal hypertension with history of upper esophageal bleed s/p banding in [place] 12/2024, anxiety, class 3 obesity, remote tobacco abuse, current nicotine abuse, Presenting to [facility] ER on 07/05/2025 complaining of left- sided rib pain after a fall, did not hit her head. Had large volume ascites on admission . CTA chest abdomen pelvis with contrast: 1. No pulmonary embolism or other acute cardiopulmonary disease. 2. Cirrhosis with stigmata of portal venous hypertension and large amount of ascites in the abdomen and pelvis. 3. Cardiomegaly and enlargement of the central pulmonary arteries consistent with pulmonary arterial hypertension. 4. Moderate-sized umbilical hernia containing ascites. Cirrhosis Ascites Has been getting a paracentesis every few weeks, last 1 week prior to admission Out of medications for a week prior to admission GI consulted, appreciate recommendations s/p paracentesis 07/06, 6L off. Albumin post procedure Low sodium diet Follow LFT's, Bili 1.8<1.9 Continue lactulose Continue Furosemide, spironolactone Hepatitis C Outpatient follow up with GI Check hepatitis-C viral load Anxiety Continue home quetiapine, bupropion, Xanax. Hypokalemia: replace and recheck. Hyponatremia: Mild, continue to monitor. Thrombocytopenia: Continue to monitor Follow-up urine and blood cultures. No antibiotics for now. Diet: Low-sodium diet. NPO midnight Saline lock IV. VS q4 SCDs. FULL CODE Time Spent With Patient Time: 57 minutes Subjective Date/time seen: 07/07/25 09:02 Interval history: S/p paracentesis yesterday , 6L off. 4 doses of oxycodone 10 and 1 dose of morphine overnight follow up labs Denies BM today, on lactulose, monitoring Blood pressure soft Review of Systems Review of Systems: All systems reviewed & are unremarkable except as noted in HPI and below (Subjective) Exam Narrative: General - Awake and alert. No acute distress Eyes - PERRLA, EOM intact ENT - No thrush, No erythema Neck - No noticeable or palpable swelling Lymph Nodes - No lymphadenopathy Cardiovascular - RRR no m/r/g, no JVD Lungs: Clear to auscultation, No wheezing, use of accessory muscles, no crackles Skin - Skin warm and dry, no wounds or rashes Abdomen - Normal bowel sounds, abdomen soft and nontender, distended Extremities - No edema, cyanosis or clubbing Musculoskeletal - 5/5 strength, normal range of motion, no swollen or erythematous joints. Neurological ? Alert and oriented x 3, CN 2-12 grossly intact. Psych: Normal mood and affect Objective Data Vital Signs Vital Signs: Vital Signs - 24 hr 07/06/25 12:00 07/06/25 14:00 07/06/25 16:00 Temperature 98 F Pulse Rate 77 81 82 Respiratory Rate 18 Blood Pressure 142/65 H Pulse Oximetry 96 Oxygen Delivery 07/06/25 20:00 07/06/25 22:00 07/07/25 00:00 Temperature 97.4 F L Pulse Rate 88 85 76 Respiratory Rate 18 Blood Pressure 122/64 Pulse Oximetry 96 Oxygen Delivery 07/07/25 04:00 07/07/25 05:47 07/07/25 06:25 Temperature 97.5 F L 97.5 F L Pulse Rate 95 83 83 Respiratory Rate 18 18 Blood Pressure 120/56 L 124/56 L Pulse Oximetry 92 92 Oxygen Delivery 07/07/25 08:32 07/07/25 08:34 07/07/25 08:34 Temperature 98.1 F Pulse Rate 88 88 92 Respiratory Rate 16 16 Blood Pressure 111/56 L Pulse Oximetry 97 97 Oxygen Delivery Room Air Intake/Output Intake/Output: Intake & Output 07/04/25 07/05/25 07/06/25 07/07/25 23:59 23:59 23:59 23:59 Intake Total 1040 Output Total 6000 Balance -4960 Meds/Results Medications: Active Medications Generic Name Dose Route Start Last Admin Trade Name Freq PRN Reason Stop Dose Admin Alprazolam 1 mg 07/06/25 01:09 07/06/25 20:42 Alprazolam (*Crx) 0.5 Mg Tablet PO 1 mg BID PRN Administration Anxiety Bupropion HCl 200 mg 07/07/25 09:00 07/07/25 08:35 Bupropion Hcl Sr (12hr) 100 Mg Tabcr PO 200 mg DAILY LEONID Administration Dextrose 12.5 gm 07/05/25 19:24 Dextrose 50% 25 Gm/50 Ml Syringe IV PUSH PRN PRN Hypoglycemia Protocol Furosemide 40 mg 07/06/25 09:00 07/07/25 08:35 Furosemide 40 Mg Tablet PO 40 mg DAILY LEONID Administration Glucagon 1 mg 07/05/25 19:24 Glucagon For Inj 1 Mg Vial IM PRN PRN Hypoglycemia Protocol Glucose 15 gm 07/05/25 19:24 Glucose Oral Gel 15 Gm Of Glucse In 37.5 Gm Tube PO PRN PRN Hypoglycemia Protocol Dextrose 1,000 mls @ 100 mls/hr 07/05/25 19:24 Dextrose 5% 1,000 Ml IVPB PRN PRN Hypoglycemia Protocol Lactulose 20 gm 07/06/25 06:00 07/07/25 06:51 Lactulose 20 Gm/30 Ml Udc PO 20 gm Q8HR LEONID Administration Levothyroxine Sodium 50 mcg 07/06/25 06:30 07/07/25 06:51 Levothyroxine Sodium 50 Mcg Tablet PO 50 mcg DAILY@0630 LEONID Administration Morphine Sulfate 4 mg 07/06/25 16:26 07/06/25 21:49 Morphine Sulfate (*Crx) 4 Mg/Ml Inj IV PUSH 4 mg Q3H PRN Administration Breakthrough Pain Mupirocin 1 applic 07/07/25 09:00 07/07/25 08:34 Mupirocin 2% Oint 22 Gm Tube TOPICAL 1 applic TID LEONID Administration Ondansetron HCl 4 mg 07/05/25 19:24 07/06/25 21:50 Ondansetron Inj 4 Mg/2 Ml Vial IV PUSH 4 mg Q4H PRN Administration Nausea Oxycodone HCl 10 mg 07/06/25 16:26 07/07/25 08:35 Oxycodone Hcl (*Crx) 5 Mg Tab Ir PO 10 mg Q4H PRN Administration 1st line for pain Quetiapine Fumarate 200 mg 07/06/25 21:00 07/06/25 20:41 Quetiapine Fumarate 100 Mg Tablet PO 200 mg HS LEONID Administration Sertraline HCl 50 mg 07/06/25 09:00 07/07/25 08:34 Sertraline Hcl 50 Mg Tablet PO 50 mg DAILY LEONID Administration Spironolactone 100 mg 07/06/25 09:00 07/07/25 08:35 Spironolactone 50 Mg Tablet PO 100 mg QAM LEONID Administration Radiology Results: ITS Impressions Chest/Abdomen/Pelvis CTA 07/05/25 18:58 IMPRESSION: 1. No pulmonary embolism or other acute cardiopulmonary disease. 2. Cirrhosis with stigmata of portal venous hypertension and large amount of ascites in the abdomen and pelvis. 3. Cardiomegaly and enlargement of the central pulmonary arteries consistent with pulmonary arterial hypertension. 4. Moderate-sized umbilical hernia containing ascites. Chest X-Ray 07/06/25 08:47 IMPRESSION: 1. No definite acute cardiopulmonary findings given portable technique. Recommend short interval follow-up repeat x-ray. Paracentesis Ultrasound 07/06/25 14:19 IMPRESSION: 1. Successful ultrasound-guided paracentesis yielding 6000 mL of clear yellow fluid. Labs Labs: Laboratory Results - last 24 hr 07/06/25 07/06/25 04:33 13:46 Peritoneal Source Peritoneal fluid Peritoneal Color Yellow Peritoneal Appearance Clear Peritoneal RBC < 2000 Periton Nuc Cells 161 Periton Neutrophils 5 Periton Lymphocytes 18 Peritoneal Monocytes 14 Peritoneal Eosinophils 0 Periton Mesothelial 23 Periton Macrophages 40 Peritoneal Other Cells 0 Hepatitis C Ab Screen Reactive Quality VTE Prophylaxis VTE prophylaxis: pharmacologic ordered Hospitalist [facility] Advance Care Plan I have confirmed that the patient's Advanced Care Plan is present, code status is documented, or surrogate decision maker is listed in patient medical record.: Yes Medication Reconciliation I have utilized all available resources to obtain, update and review the patients current medications (includes all prescriptions, OTC, herbals, cannabis, and nutritional supplements).: Yes
[2025-07-07 09:39] LABS: Hematocrit 34.7 % (37.0-47.0); Hemoglobin 10.4 g/dL (12.0-15.0); Immature Granulocyte Percent A 0.3 % (0-0.5); Lymphocytes Absolute Auto 1.03 K/mm3 (0.9-3.2); Mean Corpuscular HGB Conc 30.0 g/dl (32-36); Mean Corpuscular Hemoglobin 30.7 pg (26-34); Mean Corpuscular Volume 102.4 fl (80-100); Nucleated Red Blood Cells Absolute Auto 0.000 K/mm3 (0.0-0.012); Nucleated Red Blood Cells Perc 0.0 % (0.0-0.2); Platelet Count Result 69 k/mm3 (150-375); Red Blood Count 3.39 M/mm3 (4.2-5.4); White Blood Count 3.7 K/mm3 (4.5-10.0)
[2025-07-07 09:59] LABS: Alanine Aminotransferase 24 U/L (6-35); Albumin Level 3.4 g/dL (3.5-5.1); Alkaline Phosphatase 93 U/L (38-126); Anion Gap 5 mmol/L (4-12); Aspartate Amino Transferase 44 U/L (14-36); Bilirubin,Total 1.4 mg/dL (0.2-1.3); Blood Urea Nitrogen 9 mg/dL (7-17); Calcium 8.3 mg/dL (8.4-10.2); Carbon Dioxide 27 mmol/L (22-30); Chloride 99 mmol/L (98-107); Estimated CRCL calculation 90 ml/min; Estimated Glomerular Filt Rate > 60; Glucose 125 mg/dL (65-110); Potassium 3.2 mmol/L (3.4-5.0); Sodium 131 mmol/L (137-145); Total Protein 7.0 g/dL (6.3-8.2)
[2025-07-07] MEDS: ONDANSETRON INJ 4 MG/2 ML VIAL IV PUSH (12:31)
[2025-07-07 14:08] LABS: Albumin, Body Fluid 0.9 g/dL (Not Estab.); Glucose, Body Fluid 101 mg/dL (.)
--- NOTE | 2025-07-07 14:50 | PC.NURSE ---
Rounded on patient at 12:30. Patient refused bed alarm and requested to sit on edge of bed to eat lunch. Educated patient to use call light if ambulation was needed. Rounded at 12:45 and patient was found walking in room without staff. Patient was confused about previous conversation regarding the alarm. Assessed neuro status of patient for confusion after patient also requested medications that were taken at morning med pass. Patient seemed confused and stated I also need my dressing changed, but dressing was changed by RN at morning med pass. Discussed with the patient that the dressing had been done and oriented patient to medications and timing. Patient acknowledged understanding of timing and medications. Re-educated patient on use of call light and bed alarm.
[2025-07-07] MEDS: oxyCODONE HCL (*CRX) 5 MG TAB IR PO (20:03)
[2025-07-07] MEDS: ALPRAZolam (*CRX) 0.5 MG TABLET 1 MG PO (21:07)
[2025-07-08] VITALS (9 sets, daily range): BP systolic 106–133; BP diastolic 49–67; PULSE 68–93; RESP 16–18; TEMP 36.4–36.7; O2SAT 93–98
[2025-07-08] MEDS: oxyCODONE HCL (*CRX) 5 MG TAB IR PO ×4 (02:53→20:19)
[2025-07-08 05:15] LABS: Hematocrit 30.9 % (37.0-47.0); Hemoglobin 9.8 g/dL (12.0-15.0); Immature Granulocyte Percent A 0.3 % (0-0.5); Immature Platelet Fraction Pct 1.3 % (0.9-11.2); Lymphocytes Absolute Auto 0.89 K/mm3 (0.9-3.2); Mean Corpuscular HGB Conc 31.7 g/dl (32-36); Mean Corpuscular Hemoglobin 30.1 pg (26-34); Mean Corpuscular Volume 94.8 fl (80-100); Nucleated Red Blood Cells Absolute Auto 0.000 K/mm3 (0.0-0.012); Nucleated Red Blood Cells Perc 0.0 % (0.0-0.2); Platelet Count Result 76 k/mm3 (150-375); Red Blood Count 3.26 M/mm3 (4.2-5.4); White Blood Count 3.6 K/mm3 (4.5-10.0)
[2025-07-08 05:34] LABS: Alanine Aminotransferase 22 U/L (6-35); Albumin Level 3.0 g/dL (3.5-5.1); Alkaline Phosphatase 96 U/L (38-126); Anion Gap 5 mmol/L (4-12); Aspartate Amino Transferase 45 U/L (14-36); Bilirubin,Total 1.1 mg/dL (0.2-1.3); Blood Urea Nitrogen 9 mg/dL (7-17); Calcium 8.4 mg/dL (8.4-10.2); Carbon Dioxide 27 mmol/L (22-30); Chloride 100 mmol/L (98-107); Estimated CRCL calculation 93 ml/min; Estimated Glomerular Filt Rate > 60; Glucose 101 mg/dL (65-110); Potassium 3.5 mmol/L (3.4-5.0); Sodium 132 mmol/L (137-145); Total Protein 6.3 g/dL (6.3-8.2)
[2025-07-08] MEDS: LEVOTHYROXINE SODIUM 50 MCG TABLET PO (05:39)
[2025-07-08] MEDS: LACTULOSE 20 GM/30 ML UDC PO ×2 (05:39→12:51)
[2025-07-08] MEDS: MORPHINE SULFATE (*CRX) 4 MG/ML INJ 2 MG IV PUSH ×3 (05:41→23:59)
[2025-07-08] MEDS: buPROPion HCL SR (12HR) 100 MG TABCR 200 MG PO (09:55)
[2025-07-08] MEDS: FUROSEMIDE 40 MG TABLET PO (09:55)
[2025-07-08] MEDS: SPIRONOLACTONE 50 MG TABLET 100 MG PO (09:56)
[2025-07-08] MEDS: SERTRALINE HCL 50 MG TABLET PO (09:56)
[2025-07-08] MEDS: MUPIROCIN 2% OINT 22 GM TUBE 1 APPLIC TOPICAL ×3 (09:58→16:59)
--- NOTE | 2025-07-08 16:50 | PM.IMPN ---
Progress Note: A&P Assessment and Plan (1) Cirrhosis of liver: Qualifiers: Hepatic cirrhosis type: other cirrhosis Qualified Code(s): K74.69 - Other cirrhosis of liver Code(s): K74.60 - Unspecified cirrhosis of liver Status: Acute (2) Abdominal ascites: Qualifiers: Ascites type: other type Qualified Code(s): R18.8 - Other ascites Code(s): R18.8 - Other ascites Status: Acute (3) Left sided abdominal pain: Code(s): R10.9 - Unspecified abdominal pain Status: Acute (4) Abnormal urinalysis: Code(s): R82.90 - Unspecified abnormal findings in urine Status: Acute Plan 55-year-old female with history of untreated hepatitis-C, cirrhosis, ascites, portal hypertension with history of upper esophageal bleed s/p banding in [place] 12/2024, anxiety, class 3 obesity, remote tobacco abuse, current nicotine abuse, Presenting to [facility] ER on 07/05/2025 complaining of left-sided rib pain after a fall, did not hit her head. Had large volume ascites on admission . CTA chest abdomen pelvis with contrast: 1. No pulmonary embolism or other acute cardiopulmonary disease. 2. Cirrhosis with stigmata of portal venous hypertension and large amount of ascites in the abdomen and pelvis. 3. Cardiomegaly and enlargement of the central pulmonary arteries consistent with pulmonary arterial hypertension. 4. Moderate-sized umbilical hernia containing ascites. Acute pain Reduced oxycodone from 10>5mg for mild confusion. Using IV morphine overnight Add lidocaine patch, trial of methocarbamol for muscle spasms Cirrhosis Ascites Has been getting a paracentesis every few weeks, last 1 week prior to admission Out of medications for a week prior to admission GI consulted, appreciate recommendations s/p paracentesis 07/06, 6L off. Albumin post procedure Low sodium diet Follow LFT's, Bili 1.8<1.9>1.1 Continue lactulose Continue Furosemide, increase to 40mg IV BID with albumin, spironolactone 100mg daily Has follow up in GI office 07/13 Hepatitis C Outpatient follow up with GI hepatitis-C viral load pending Anxiety Continue home quetiapine, bupropion, Xanax. Hypokalemia: replace and recheck. [id number] once today Hyponatremia: Mild, continue to monitor, improved Thrombocytopenia: Continue to monitor Follow-up urine and blood cultures. No antibiotics for now. Diet: Low-sodium diet. Saline lock IV. VS q4 SCDs. FULL CODE Time Spent With Patient Time: 57 minutes Subjective Date/time seen: 07/08/25 16:50 Interval history: Still needing oxycodone and IV morphine for abdominal/left rib pain Moderate to large abdominal distention. Reports that at OSH in [place] they took off as much as 15 liters Blood pressure 106/49 today Review of Systems Review of Systems: All systems reviewed & are unremarkable except as noted in HPI and below (Subjective) Exam Narrative: General - Awake and alert. No acute distress Eyes - PERRLA, EOM intact ENT - No thrush, No erythema Neck - No noticeable or palpable swelling Lymph Nodes - No lymphadenopathy Cardiovascular - RRR no m/r/g, no JVD Lungs: Clear to auscultation, No wheezing, use of accessory muscles, no crackles Skin - Skin warm and dry, no wounds or rashes Abdomen - Normal bowel sounds, abdomen soft and nontender, TTP left lower rib, distended Extremities - No edema, cyanosis or clubbing Musculoskeletal - 5/5 strength, normal range of motion, no swollen or erythematous joints. Neurological ? Alert and oriented x 3, CN 2-12 grossly intact. Psych: Normal mood and affect Objective Data Vital Signs Vital Signs: Vital Signs - 24 hr 07/07/25 20:00 07/07/25 20:00 07/07/25 22:36 Temperature 97.6 F Pulse Rate 92 91 Respiratory Rate 16 Blood Pressure 117/59 L Pulse Oximetry 98 Oxygen Delivery Room Air 07/08/25 00:00 07/08/25 04:00 07/08/25 05:12 Temperature 97.6 F Pulse Rate 89 93 68 Respiratory Rate 18 Blood Pressure 122/58 L Pulse Oximetry 93 Oxygen Delivery 07/08/25 08:00 07/08/25 09:15 07/08/25 12:00 Temperature Pulse Rate 84 89 Respiratory Rate Blood Pressure Pulse Oximetry Oxygen Delivery Room Air 07/08/25 14:00 Temperature 98.1 F Pulse Rate 87 Respiratory Rate 18 Blood Pressure 106/49 L Pulse Oximetry 96 Oxygen Delivery Intake/Output Intake/Output: Intake & Output 07/05/25 07/06/25 07/07/25 07/08/25 23:59 23:59 23:59 23:59 Intake Total 1040 1610 790 Output Total 6000 Balance -4960 1610 790 Meds/Results Medications: Active Medications Generic Name Dose Route Start Last Admin Trade Name Freq PRN Reason Stop Dose Admin Alprazolam 1 mg 07/06/25 01:09 07/07/25 21:07 Alprazolam (*Crx) 0.5 Mg Tablet PO 1 mg BID PRN Administration Anxiety Bupropion HCl 200 mg 07/07/25 09:00 07/08/25 09:55 Bupropion Hcl Sr (12hr) 100 Mg Tabcr PO 200 mg DAILY LEONID Administration Dextrose 12.5 gm 07/05/25 19:24 Dextrose 50% 25 Gm/50 Ml Syringe IV PUSH PRN PRN Hypoglycemia Protocol Furosemide 40 mg 07/06/25 09:00 07/08/25 09:55 Furosemide 40 Mg Tablet PO 40 mg On Hold: 07/08/25 15:27 DAILY LEONID Administration Furosemide 40 mg 07/08/25 17:00 Furosemide Inj 40 Mg/4 Ml Vial IV PUSH BID LEONID Glucagon 1 mg 07/05/25 19:24 Glucagon For Inj 1 Mg Vial IM PRN PRN Hypoglycemia Protocol Glucose 15 gm 07/05/25 19:24 Glucose Oral Gel 15 Gm Of Glucse In 37.5 Gm Tube PO PRN PRN Hypoglycemia Protocol Heparin Sodium (Porcine) 5,000 units 07/07/25 22:00 Heparin Sodium 5,000 Units/Ml Vial SUB-Q Q8HR LEONID Dextrose 1,000 mls @ 100 mls/hr 07/05/25 19:24 Dextrose 5% 1,000 Ml IVPB PRN PRN Hypoglycemia Protocol Lactulose 20 gm 07/06/25 06:00 07/08/25 12:51 Lactulose 20 Gm/30 Ml Udc PO 20 gm Q8HR LEONID Administration Levothyroxine Sodium 50 mcg 07/06/25 06:30 07/08/25 05:39 Levothyroxine Sodium 50 Mcg Tablet PO 50 mcg DAILY@0630 LEONID Administration Lidocaine 1 patch 07/08/25 15:40 Lidocaine 5% Patch TRANSDERM DAILY LEONID Methocarbamol 500 mg 07/08/25 15:27 Methocarbamol 500 Mg Tablet PO TID PRN spasms Miscellaneous Information 1 each 07/08/25 00:01 07/07 Platelet Count Is 69, Ok To Give Heparin? XX 08/07/25 00:00 CLARIFY LEONID Morphine Sulfate 2 mg 07/07/25 18:39 07/08/25 12:48 Morphine Sulfate (*Crx) 4 Mg/Ml Inj IV PUSH 2 mg Q3H PRN Administration Breakthrough Pain Mupirocin 1 applic 07/07/25 09:00 07/08/25 12:52 Mupirocin 2% Oint 22 Gm Tube TOPICAL 1 applic TID LEONID Administration Ondansetron HCl 4 mg 07/05/25 19:24 07/07/25 12:31 Ondansetron Inj 4 Mg/2 Ml Vial IV PUSH 4 mg Q4H PRN Administration Nausea Oxycodone HCl 5 mg 07/07/25 18:39 07/08/25 15:25 Oxycodone Hcl (*Crx) 5 Mg Tab Ir PO 5 mg Q4H PRN Administration 1st line for pain Quetiapine Fumarate 200 mg 07/06/25 21:00 07/07/25 21:07 Quetiapine Fumarate 100 Mg Tablet PO 200 mg HS LEONID Administration Sertraline HCl 50 mg 07/06/25 09:00 07/08/25 09:56 Sertraline Hcl 50 Mg Tablet PO 50 mg DAILY LEONID Administration Spironolactone 100 mg 07/06/25 09:00 07/08/25 09:56 Spironolactone 50 Mg Tablet PO 100 mg QAM LEONID Administration Radiology Results: ITS Impressions Chest/Abdomen/Pelvis CTA 07/05/25 18:58 IMPRESSION: 1. No pulmonary embolism or other acute cardiopulmonary disease. 2. Cirrhosis with stigmata of portal venous hypertension and large amount of ascites in the abdomen and pelvis. 3. Cardiomegaly and enlargement of the central pulmonary arteries consistent with pulmonary arterial hypertension. 4. Moderate-sized umbilical hernia containing ascites. Chest X-Ray 07/06/25 08:47 IMPRESSION: 1. No definite acute cardiopulmonary findings given portable technique. Recommend short interval follow-up repeat x-ray. Paracentesis Ultrasound 07/06/25 14:19 IMPRESSION: 1. Successful ultrasound-guided paracentesis yielding 6000 mL of clear yellow fluid. Labs Labs: Laboratory Results - last 24 hr 07/08/25 05:05 WBC 3.6 L RBC 3.26 L Hgb 9.8 L Hct 30.9 L MCV 94.8 D MCH 30.1 MCHC 31.7 L RDW 14.8 H Plt Count 76 L MPV 9.6 Immature Gran % (Auto) 0.3 Neut % (Auto) 54.5 Lymph % (Auto) 24.5 [place] % (Auto) 17.1 H Eos % (Auto) 2.5 Baso % (Auto) 1.1 Lymph # (Auto) 0.89 L [place] # (Auto) 0.6 Eos # (Auto) 0.1 Baso # (Auto) 0.0 Abs Immat Gran (auto) 0.01 Absolute Neuts (auto) 2.0 Absolute Nucleated RBC 0.000 Nucleated RBC % 0.0 % Immature Plt Fraction 1.3 Sodium 132 L Potassium 3.5 Chloride 100 Carbon Dioxide 27 Anion Gap 5 BUN 9 Creatinine 0.82 Estim Creat Clear Calc 93 Estimated GFR > 60 Glucose 101 Calcium 8.4 Total Bilirubin 1.1 AST 45 H ALT 22 Alkaline Phosphatase 96 Total Protein 6.3 Albumin 3.0 L Quality VTE Prophylaxis VTE prophylaxis: pharmacologic ordered Hospitalist MIPS Advance Care Plan I have confirmed that the patient's Advanced Care Plan is present, code status is documented, or surrogate decision maker is listed in patient medical record.: Yes Medication Reconciliation I have utilized all available resources to obtain, update and review the patients current medications (includes all prescriptions, OTC, herbals, cannabis, and nutritional supplements).: Yes
[2025-07-08] MEDS: POTASSIUM CHLORIDE 20 MEQ ER TABLET 40 MEQ PO (16:59)
[2025-07-08] MEDS: FUROSEMIDE INJ 40 MG/4 ML VIAL IV PUSH (16:59)
[2025-07-08] MEDS: LIDOCAINE 5% PATCH 1 PATCH TRANSDERM (17:00)
[2025-07-08] MEDS: ALBUMIN HUMAN 25% 25 GM/100 ML 100 ML IVPB (18:49)
[2025-07-08] MEDS: ALPRAZolam (*CRX) 0.5 MG TABLET 1 MG PO (21:26)
[2025-07-09 05:10] LABS: Hematocrit 29.1 % (37.0-47.0); Hemoglobin 9.4 g/dL (12.0-15.0); Immature Granulocyte Percent A 0.3 % (0-0.5); Immature Platelet Fraction Pct 2.0 % (0.9-11.2); Lymphocytes Absolute Auto 0.94 K/mm3 (0.9-3.2); Mean Corpuscular HGB Conc 32.3 g/dl (32-36); Mean Corpuscular Hemoglobin 30.8 pg (26-34); Mean Corpuscular Volume 95.4 fl (80-100); Nucleated Red Blood Cells Absolute Auto 0.000 K/mm3 (0.0-0.012); Nucleated Red Blood Cells Perc 0.0 % (0.0-0.2); Platelet Count Result 73 k/mm3 (150-375); Red Blood Count 3.05 M/mm3 (4.2-5.4); White Blood Count 3.3 K/mm3 (4.5-10.0)
[2025-07-09] MEDS: LACTULOSE 20 GM/30 ML UDC PO ×2 (05:30→12:34)
[2025-07-09] MEDS: LEVOTHYROXINE SODIUM 50 MCG TABLET PO (05:30)
[2025-07-09] MEDS: oxyCODONE HCL (*CRX) 5 MG TAB IR PO (05:32)
[2025-07-09 05:36] LABS: Alanine Aminotransferase 20 U/L (6-35); Albumin Level 2.9 g/dL (3.5-5.1); Alkaline Phosphatase 83 U/L (38-126); Anion Gap 3 mmol/L (4-12); Aspartate Amino Transferase 47 U/L (14-36); Bilirubin,Total 1.2 mg/dL (0.2-1.3); Blood Urea Nitrogen 11 mg/dL (7-17); Calcium 8.2 mg/dL (8.4-10.2); Carbon Dioxide 29 mmol/L (22-30); Chloride 100 mmol/L (98-107); Estimated CRCL calculation 95 ml/min; Estimated Glomerular Filt Rate > 60; Glucose 93 mg/dL (65-110); Potassium 3.3 mmol/L (3.4-5.0); Sodium 132 mmol/L (137-145); Total Protein 6.0 g/dL (6.3-8.2)
[2025-07-09 06:13] VITALS: BP 129/63; PULSE 89; RESP 18; TEMP 36.4; O2SAT 96
--- NOTE | 2025-07-09 08:43 | P.PNIM_ITS ---
Progress Note: A&P Assessment and Plan (1) Cirrhosis of liver: Qualifiers: Hepatic cirrhosis type: other cirrhosis Qualified Code(s): K74.69 - Other cirrhosis of liver Code(s): K74.60 - Unspecified cirrhosis of liver Status: Acute (2) Abdominal ascites: Qualifiers: Ascites type: other type Qualified Code(s): R18.8 - Other ascites Code(s): R18.8 - Other ascites Status: Acute (3) Left sided abdominal pain: Code(s): R10.9 - Unspecified abdominal pain Status: Acute (4) Abnormal urinalysis: Code(s): R82.90 - Unspecified abnormal findings in urine Status: Acute (5) Delirium: Code(s): R41.0 - Disorientation, unspecified Status: Acute Plan 55-year-old female with history of untreated hepatitis-C, cirrhosis, ascites, portal hypertension with history of upper esophageal bleed s/p banding in [place] 12/2024, anxiety, class 3 obesity, remote tobacco abuse, current nicotine abuse, Presenting to [facility] ER on 07/05/2025 complaining of left- sided rib pain after a fall, did not hit her head. Had large volume ascites on admission. S/P US guided paracentesis 07/06. Cultures sent CTA chest abdomen pelvis with contrast: 1. No pulmonary embolism or other acute cardiopulmonary disease. 2. Cirrhosis with stigmata of portal venous hypertension and large amount of ascites in the abdomen and pelvis. 3. Cardiomegaly and enlargement of the central pulmonary arteries consistent with pulmonary arterial hypertension. 4. Moderate-sized umbilical hernia containing ascites. Confusion Mild confusion. Likely delirium, like medication related since labs improving and seems to have improved abdominal distention, no new infectious symptoms Follow AM labs, check ammonia level. Decrease oxycodone and morphine Acute pain Reduced oxycodone from 10>5>2.5 mg for mild confusion. Using IV morphine overnight. Decrease from 2mg>1mg Add lidocaine patch, trial of methocarbamol 500mg daily for muscle spasms Schedule acetaminophen 500 BID prn for pain x2 days Cirrhosis Ascites Has been getting a paracentesis every few weeks, last 1 week prior to admission Out of medications for a week prior to admission GI consulted, appreciate recommendations s/p paracentesis 07/06, 6L off. Albumin post procedure Low sodium diet Follow LFT's, Bili 1.8<1.9>1.1, 1.2 Continue lactulose, having regular BM's Continue Furosemide, increased to 40mg IV BID with albumin, spironolactone 100mg daily, improving ascites. Will need increased dose of furosemide for discharge Follow daily weight: 288 07/05, 279 07/07 &07/08, 278 this morning Has follow up in GI office 07/13 Hepatitis C Outpatient follow up with GI Hepatitis-C viral load pending Anxiety Continue home quetiapine, bupropion, Xanax. Hypokalemia: replace and recheck. [id number] once today Hyponatremia: Mild, continue to monitor, improved Thrombocytopenia: Continue to monitor Follow-up urine and blood cultures. No antibiotics for now. Diet: Low-sodium diet. Saline lock IV. VS q4 SCDs. Heparin for DVT prophylaxis FULL CODE Time Spent With Patient Time: 57 minutes Subjective Date/time seen: 07/09/25 10:45 Interval history: VSS, BP improved overnight. Potassium 3.2 after 40meq potassium last night. Give 40 x2 overnight, repeat dose in AM. Reporting muscle cramps. Abdominal distention improved. Mild confusion this morning about when her paracentesis was, thought it was yesterday Weaning opiates Review of Systems Review of Systems: All systems reviewed & are unremarkable except as noted in HPI and below (Subjective) Exam Narrative: General - Awake and alert. No acute distress Eyes - PERRLA, EOM intact ENT - No thrush, No erythema Neck - No noticeable or palpable swelling Lymph Nodes - No lymphadenopathy Cardiovascular - RRR no m/r/g, no JVD Lungs: Clear to auscultation, No wheezing, use of accessory muscles, no crackles Skin - Skin warm and dry, no wounds or rashes Abdomen - Normal bowel sounds, abdomen soft and nontender, TTP left lower rib, overall improved distention Extremities - No edema, cyanosis or clubbing Musculoskeletal - 5/5 strength, normal range of motion, no swollen or erythematous joints. Neurological ? Alert and oriented x 3, CN 2-12 grossly intact. Psych: Normal mood and affect Objective Data Vital Signs Vital Signs: Vital Signs - 24 hr 07/08/25 09:15 07/08/25 12:00 07/08/25 14:00 Temperature 98.1 F Pulse Rate 89 87 Respiratory Rate 18 Blood Pressure 106/49 L Pulse Oximetry 96 Oxygen Delivery Room Air 07/08/25 16:00 07/08/25 20:00 07/08/25 20:48 Temperature 97.6 F Pulse Rate 86 81 Respiratory Rate 16 Blood Pressure 133/67 Pulse Oximetry 98 Oxygen Delivery Room Air 07/08/25 21:25 07/09/25 06:13 Temperature 97.6 F Pulse Rate 89 Respiratory Rate 18 Blood Pressure 129/63 Pulse Oximetry 98 96 Oxygen Delivery Room Air Intake/Output Intake/Output: Intake & Output 07/06/25 07/07/25 07/08/25 07/09/25 23:59 23:59 23:59 23:59 Intake Total 1040 1610 1240 400 Output Total 6000 Balance -4960 1610 1240 400 Meds/Results Medications: Active Medications Generic Name Dose Route Start Last Admin Trade Name Freq PRN Reason Stop Dose Admin Alprazolam 1 mg 07/06/25 01:09 07/08/25 21:26 Alprazolam (*Crx) 0.5 Mg Tablet PO 1 mg BID PRN Administration Anxiety Bupropion HCl 200 mg 07/07/25 09:00 07/08/25 09:55 Bupropion Hcl Sr (12hr) 100 Mg Tabcr PO 200 mg DAILY LEONID Administration Dextrose 12.5 gm 07/05/25 19:24 Dextrose 50% 25 Gm/50 Ml Syringe IV PUSH PRN PRN Hypoglycemia Protocol Furosemide 40 mg 07/06/25 09:00 07/08/25 09:55 Furosemide 40 Mg Tablet PO 40 mg On Hold: 07/08/25 15:27 DAILY LEONID Administration Furosemide 40 mg 07/08/25 17:00 07/08/25 16:59 Furosemide Inj 40 Mg/4 Ml Vial IV PUSH 40 mg BID LEONID Administration Glucagon 1 mg 07/05/25 19:24 Glucagon For Inj 1 Mg Vial IM PRN PRN Hypoglycemia Protocol Glucose 15 gm 07/05/25 19:24 Glucose Oral Gel 15 Gm Of Glucse In 37.5 Gm Tube PO PRN PRN Hypoglycemia Protocol Heparin Sodium (Porcine) 5,000 units 07/07/25 22:00 Heparin Sodium 5,000 Units/Ml Vial SUB-Q Q8HR LEONID Dextrose 1,000 mls @ 100 mls/hr 07/05/25 19:24 Dextrose 5% 1,000 Ml IVPB PRN PRN Hypoglycemia Protocol Albumin Human 100 mls @ 60 mls/hr 07/08/25 17:05 07/08/25 18:49 Albutein IVPB 07/09/25 10:39 60 mls/hr BID LEONID Administration Lactulose 20 gm 07/06/25 06:00 07/09/25 05:30 Lactulose 20 Gm/30 Ml Udc PO 20 gm Q8HR LEONID Administration Levothyroxine Sodium 50 mcg 07/06/25 06:30 07/09/25 05:30 Levothyroxine Sodium 50 Mcg Tablet PO 50 mcg DAILY@0630 LEONID Administration Lidocaine 1 patch 07/08/25 15:40 07/08/25 17:00 Lidocaine 5% Patch TRANSDERM 1 patch DAILY LEONID Administration Methocarbamol 500 mg 07/08/25 15:27 07/08/25 16:59 Methocarbamol 500 Mg Tablet PO 500 mg TID PRN Administration spasms Miscellaneous Information 1 each 07/08/25 00:01 07/07 Platelet Count Is 69, Ok To Give Heparin? XX 08/07/25 00:00 CLARIFY [facility] Morphine Sulfate 2 mg 07/07/25 18:39 07/08/25 23:59 Morphine Sulfate (*Crx) 4 Mg/Ml Inj IV PUSH 2 mg Q3H PRN Administration Breakthrough Pain Mupirocin 1 applic 07/07/25 09:00 07/08/25 16:59 Mupirocin 2% Oint 22 Gm Tube TOPICAL 1 applic TID [facility] Administration Ondansetron HCl 4 mg 07/05/25 19:24 07/07/25 12:31 Ondansetron Inj 4 Mg/2 Ml Vial IV PUSH 4 mg Q4H PRN Administration Nausea Oxycodone HCl 5 mg 07/07/25 18:39 07/09/25 05:32 Oxycodone Hcl (*Crx) 5 Mg Tab Ir PO 5 mg Q4H PRN Administration 1st line for pain Quetiapine Fumarate 200 mg 07/06/25 21:00 07/08/25 21:26 Quetiapine Fumarate 100 Mg Tablet PO 200 mg HS LEONID Administration Sertraline HCl 50 mg 07/06/25 09:00 07/08/25 09:56 Sertraline Hcl 50 Mg Tablet PO 50 mg DAILY LEONID Administration Spironolactone 100 mg 07/06/25 09:00 07/08/25 09:56 Spironolactone 50 Mg Tablet PO 100 mg QAM LEONID Administration Radiology Results: ITS Impressions Chest/Abdomen/Pelvis CTA 07/05/25 18:58 IMPRESSION: 1. No pulmonary embolism or other acute cardiopulmonary disease. 2. Cirrhosis with stigmata of portal venous hypertension and large amount of ascites in the abdomen and pelvis. 3. Cardiomegaly and enlargement of the central pulmonary arteries consistent with pulmonary arterial hypertension. 4. Moderate-sized umbilical hernia containing ascites. Chest X-Ray 07/06/25 08:47 IMPRESSION: 1. No definite acute cardiopulmonary findings given portable technique. Recommend short interval follow-up repeat x-ray. Paracentesis Ultrasound 07/06/25 14:19 IMPRESSION: 1. Successful ultrasound-guided paracentesis yielding 6000 mL of clear yellow fluid. Labs Labs: Laboratory Results - last 24 hr 07/06/25 07/09/25 04:33 04:49 WBC 3.3 L RBC 3.05 L Hgb 9.4 L Hct 29.1 L MCV 95.4 MCH 30.8 MCHC 32.3 RDW 15.0 H Plt Count 73 L MPV 9.9 Immature Gran % (Auto) 0.3 Neut % (Auto) 51.7 Lymph % (Auto) 28.6 [place] % (Auto) 15.8 H Eos % (Auto) 2.7 Baso % (Auto) 0.9 Lymph # (Auto) 0.94 [place] # (Auto) 0.5 Eos # (Auto) 0.1 Baso # (Auto) 0.0 Abs Immat Gran (auto) 0.01 Absolute Neuts (auto) 1.7 Absolute Nucleated RBC 0.000 Nucleated RBC % 0.0 % Immature Plt Fraction 2.0 Sodium 132 L Potassium 3.3 L Chloride 100 Carbon Dioxide 29 Anion Gap 3 L BUN 11 Creatinine 0.81 Estim Creat Clear Calc 95 Estimated GFR > 60 Glucose 93 Calcium 8.2 L Total Bilirubin 1.2 AST 47 H ALT 20 Alkaline Phosphatase 83 Total Protein 6.0 L Albumin 2.9 L Hepatitis C Genotype 3 Quality VTE Prophylaxis VTE prophylaxis: pharmacologic ordered Hospitalist MIPS Advance Care Plan I have confirmed that the patient's Advanced Care Plan is present, code status is documented, or surrogate decision maker is listed in patient medical record.: Yes Medication Reconciliation I have utilized all available resources to obtain, update and review the patients current medications (includes all prescriptions, OTC, herbals, canna bis, and nutritional supplements).: Yes
[2025-07-09] MEDS: LIDOCAINE 5% PATCH 1 PATCH TRANSDERM (08:48)
[2025-07-09] MEDS: FUROSEMIDE INJ 40 MG/4 ML VIAL IV PUSH ×2 (08:49→16:43)
[2025-07-09] MEDS: buPROPion HCL SR (12HR) 100 MG TABCR 200 MG PO (08:49)
[2025-07-09] MEDS: ALBUMIN HUMAN 25% 25 GM/100 ML 100 ML IVPB (08:49)
[2025-07-09] MEDS: SERTRALINE HCL 50 MG TABLET PO (08:50)
[2025-07-09] MEDS: SPIRONOLACTONE 50 MG TABLET 100 MG PO (08:50)
[2025-07-09] MEDS: MUPIROCIN 2% OINT 22 GM TUBE 1 APPLIC TOPICAL ×3 (09:25→16:34)
[2025-07-09 11:03] LABS: Magnesium 1.7 mg/dL (1.6-2.3)
[2025-07-09] MEDS: ACETAMINOPHEN 500 MG TABLET PO ×2 (12:31→16:44)
[2025-07-09] MEDS: oxyCODONE HCL (*CRX) 2.5 MG TAB IR PO ×3 (12:31→21:46)
[2025-07-09] MEDS: POTASSIUM CHLORIDE 20 MEQ ER TABLET 40 MEQ PO ×2 (12:32→16:44)
[2025-07-09 14:00] VITALS: BP 114/51; PULSE 87; RESP 18; TEMP 36.9; O2SAT 95
[2025-07-09] MEDS: ALPRAZolam (*CRX) 0.5 MG TABLET 1 MG PO (20:42)
[2025-07-09 21:07] VITALS: O2SAT 93
[2025-07-09 22:40] VITALS: BP 116/62; PULSE 80; RESP 16; TEMP 36.9; O2SAT 97
[2025-07-10 05:20] LABS: Hematocrit 28.6 % (37.0-47.0); Hemoglobin 9.4 g/dL (12.0-15.0); Immature Granulocyte Percent A 0.3 % (0-0.5); Immature Platelet Fraction Pct 1.8 % (0.9-11.2); Lymphocytes Absolute Auto 1.03 K/mm3 (0.9-3.2); Mean Corpuscular HGB Conc 32.9 g/dl (32-36); Mean Corpuscular Hemoglobin 31.0 pg (26-34); Mean Corpuscular Volume 94.4 fl (80-100); Nucleated Red Blood Cells Absolute Auto 0.000 K/mm3 (0.0-0.012); Nucleated Red Blood Cells Perc 0.0 % (0.0-0.2); Red Blood Count 3.03 M/mm3 (4.2-5.4); White Blood Count 3.2 K/mm3 (4.5-10.0)
[2025-07-10 05:30] LABS: Ammonia 48 umol/L (9-30)
[2025-07-10 05:38] LABS: Platelet Count Result 86 k/mm3 (150-375)
[2025-07-10 05:40] LABS: Hypochromasia 1+; Schistocytes None Seen
[2025-07-10] MEDS: LEVOTHYROXINE SODIUM 50 MCG TABLET PO (05:41)
[2025-07-10] MEDS: LACTULOSE 20 GM/30 ML UDC PO ×4 (05:41→21:34)
[2025-07-10 05:43] LABS: Alanine Aminotransferase 19 U/L (6-35); Albumin Level 2.6 g/dL (3.5-5.1); Alkaline Phosphatase 72 U/L (38-126); Anion Gap 5 mmol/L (4-12); Aspartate Amino Transferase 45 U/L (14-36); Bilirubin,Total 0.9 mg/dL (0.2-1.3); Blood Urea Nitrogen 12 mg/dL (7-17); Calcium 8.1 mg/dL (8.4-10.2); Carbon Dioxide 29 mmol/L (22-30); Chloride 101 mmol/L (98-107); Estimated CRCL calculation 86 ml/min; Estimated Glomerular Filt Rate > 60; Glucose 98 mg/dL (65-110); Potassium 3.7 mmol/L (3.4-5.0); Sodium 135 mmol/L (137-145); Total Protein 5.5 g/dL (6.3-8.2)
[2025-07-10 06:00] VITALS: BP 100/53; PULSE 76; RESP 18; TEMP 36.4; O2SAT 97
[2025-07-10] MEDS: FUROSEMIDE INJ 40 MG/4 ML VIAL IV PUSH (08:47)
[2025-07-10] MEDS: SERTRALINE HCL 50 MG TABLET PO (08:47)
[2025-07-10] MEDS: oxyCODONE HCL (*CRX) 2.5 MG TAB IR PO ×3 (08:47→18:41)
[2025-07-10] MEDS: ACETAMINOPHEN 500 MG TABLET PO ×2 (08:47→18:41)
[2025-07-10] MEDS: POTASSIUM CHLORIDE 20 MEQ ER TABLET 40 MEQ PO (08:47)
[2025-07-10] MEDS: buPROPion HCL SR (12HR) 100 MG TABCR 200 MG PO (08:48)
[2025-07-10] MEDS: MUPIROCIN 2% OINT 22 GM TUBE 1 APPLIC TOPICAL ×2 (08:48→18:43)
[2025-07-10] MEDS: SPIRONOLACTONE 50 MG TABLET 100 MG PO (08:48)
[2025-07-10] MEDS: LIDOCAINE 5% PATCH 1 PATCH TRANSDERM (08:49)
[2025-07-10 14:00] VITALS: BP 124/54; PULSE 77; RESP 16; TEMP 36.3; O2SAT 96
--- NOTE | 2025-07-10 17:38 | PM.IMPN ---
Progress Note: A&P Assessment and Plan (1) Cirrhosis of liver: Qualifiers: Hepatic cirrhosis type: other cirrhosis Qualified Code(s): K74.69 - Other cirrhosis of liver Code(s): K74.60 - Unspecified cirrhosis of liver Status: Acute (2) Abdominal ascites: Qualifiers: Ascites type: other type Qualified Code(s): R18.8 - Other ascites Code(s): R18.8 - Other ascites Status: Acute (3) Left sided abdominal pain: Code(s): R10.9 - Unspecified abdominal pain Status: Acute (4) Abnormal urinalysis: Code(s): R82.90 - Unspecified abnormal findings in urine Status: Acute (5) Delirium: Code(s): R41.0 - Disorientation, unspecified Status: Acute Plan 55-year-old female with history of untreated hepatitis-C, cirrhosis, ascites, portal hypertension with history of upper esophageal bleed s/p banding in [place] 12/2024, anxiety, class 3 obesity, remote tobacco abuse, current nicotine abuse, Presenting to [facility] ER on 07/05/2025 complaining of left-sided rib pain after a fall, did not hit her head. Had large volume ascites on admission. S/P US guided paracentesis 07/06. Cultures sent CTA chest abdomen pelvis with contrast: 1. No pulmonary embolism or other acute cardiopulmonary disease. 2. Cirrhosis with stigmata of portal venous hypertension and large amount of ascites in the abdomen and pelvis. 3. Cardiomegaly and enlargement of the central pulmonary arteries consistent with pulmonary arterial hypertension. 4. Moderate-sized umbilical hernia containing ascites. Confusion Mild confusion intermittency. Hepatic encephalopathy vs delirium and increased confusion with higher doses of opiates. no new infectious symptoms Ammonia is elevated, 48 Could consider starting rifaximin, discuss with GI if not tolerating lactulose. Refuses lactulose at times. Takes Decreased oxycodone and morphine Acute pain Reduced oxycodone from 10>5>2.5 mg for mild confusion. Using IV morphine overnight. Decrease from 2mg>1mg Add lidocaine patch, trial of methocarbamol 500mg daily for muscle spasms Schedule acetaminophen 500 BID prn for pain x2 days Patient was sleeping when I went to see her in the evening. Asked me to knock her out discussed that we have to limit pain medications for her due to confusion when her doses are higher Cirrhosis Ascites Has been getting a paracentesis every few weeks, last 1 week prior to admission Out of medications for a week prior to admission GI consulted, appreciate recommendations s/p paracentesis 07/06, 6L off. Albumin post procedure Low sodium diet. Fluid restrict 1000ml/day Follow LFT's, Bili 1.8<1.9>1.1, 1.2 Continue lactulose, having regular BM's Not diuresing much with IV Furosemide, increased to 40mg IV BID with albumin. Spoke to GI, Dr. Calvo Increasing spironolactone 100mg to 200mg daily. Lasix 40mg<80mg--continue for discharge Follow daily weight: 288 07/05, 279 07/07 &07/08, 278 this morning Has follow up in GI office 07/13 Hepatitis C Outpatient follow up with GI Hepatitis-C viral load pending Anxiety Continue home quetiapine, bupropion, Xanax. Hypokalemia: replace and recheck. [id number] once today Hyponatremia: Mild, continue to monitor, improved Thrombocytopenia: Continue to monitor Follow-up urine and blood cultures. No antibiotics for now. Diet: Low-sodium diet. Saline lock IV. VS q4 SCDs. Heparin for DVT prophylaxis FULL CODE Time Spent With Patient Time: 59 minutes Subjective Date/time seen: 07/10/25 15:25 Interval history: Vital signs stable. Labs okay, but still having a lot of abdominal pain and significant distension on exam. Plan for another paracentesis tomorrow. Patient was sleeping when I walked in the room, but asked for increased pain medications. Limiting due to confusion with higher doses of opiates LFT is improving significantly, Bilirubin normalized. Creatinine stable Discussed with Dr. Calvo, since diuresis has been minimal with IV diuretics and albumin. Switching Lasix to p.o., increasing spironolactone. She has GI clinic follow-up on 07/13 Review of Systems Review of Systems: All systems reviewed & are unremarkable except as noted in HPI and below (Subjective) Exam Narrative: General - Awake and alert. No acute distress Eyes - PERRLA, EOM intact ENT - No thrush, No erythema Neck - No noticeable or palpable swelling Lymph Nodes - No lymphadenopathy Cardiovascular - RRR no m/r/g, no JVD Lungs: Clear to auscultation, No wheezing, use of accessory muscles, no crackles Skin - Skin warm and dry, no wounds or rashes Abdomen - Normal bowel sounds, abdomen soft and nontender, TTP left lower rib, abdominal distention Extremities - No edema, cyanosis or clubbing Musculoskeletal - 5/5 strength, normal range of motion, no swollen or erythematous joints. Neurological ? Alert and oriented x 3, CN 2-12 grossly intact. Psych: Normal mood and affect Objective Data Vital Signs Vital Signs: Vital Signs - 24 hr 07/09/25 20:00 07/09/25 21:07 07/09/25 22:40 Temperature 98.4 F Pulse Rate 80 Respiratory Rate 16 Blood Pressure 116/62 Pulse Oximetry 93 97 Oxygen Delivery Room Air Room Air Fraction of Inspired Oxygen 21 07/10/25 06:00 07/10/25 08:45 07/10/25 14:00 Temperature 97.5 F L 97.4 F L Pulse Rate 76 77 Respiratory Rate 18 16 Blood Pressure 100/53 L 124/54 L Pulse Oximetry 97 96 Oxygen Delivery Room Air Fraction of Inspired Oxygen Intake/Output Intake/Output: Intake & Output 07/07/25 07/08/25 07/09/25 07/10/25 23:59 23:59 23:59 23:59 Intake Total 1610 1340 4620 520 Balance 1610 1340 4620 520 Meds/Results Medications: Active Medications Generic Name Dose Route Start Last Admin Trade Name Freq PRN Reason Stop Dose Admin Acetaminophen 500 mg 07/09/25 10:45 07/10/25 08:47 Acetaminophen 500 Mg Tablet PO 07/11/25 10:44 500 mg BID LEONID Administration Alprazolam 1 mg 07/06/25 01:09 07/09/25 20:42 Alprazolam (*Crx) 0.5 Mg Tablet PO 1 mg BID PRN Administration Anxiety Bupropion HCl 200 mg 07/07/25 09:00 07/10/25 08:48 Bupropion Hcl Sr (12hr) 100 Mg Tabcr PO 200 mg DAILY LEONID Administration Dextrose 12.5 gm 07/05/25 19:24 Dextrose 50% 25 Gm/50 Ml Syringe IV PUSH PRN PRN Hypoglycemia Protocol Furosemide 40 mg 07/06/25 09:00 07/08/25 09:55 Furosemide 40 Mg Tablet PO 40 mg On Hold: 07/08/25 15:27 DAILY LEONID Administration Furosemide 80 mg 07/11/25 09:00 Furosemide 80 Mg Tablet PO DAILY LEONID Glucagon 1 mg 07/05/25 19:24 Glucagon For Inj 1 Mg Vial IM PRN PRN Hypoglycemia Protocol Glucose 15 gm 07/05/25 19:24 Glucose Oral Gel 15 Gm Of Glucse In 37.5 Gm Tube PO PRN PRN Hypoglycemia Protocol Heparin Sodium (Porcine) 5,000 units 07/09/25 14:00 07/10/25 14:37 Heparin Sodium 5,000 Units/Ml Vial SUB-Q 5,000 units Q8HR LEONID Administration Dextrose 1,000 mls @ 100 mls/hr 07/05/25 19:24 Dextrose 5% 1,000 Ml IVPB PRN PRN Hypoglycemia Protocol Lactulose 20 gm 07/06/25 06:00 07/10/25 14:36 Lactulose 20 Gm/30 Ml Udc PO 20 gm Q8HR LEONID Administration Levothyroxine Sodium 50 mcg 07/06/25 06:30 07/10/25 05:41 Levothyroxine Sodium 50 Mcg Tablet PO 50 mcg DAILY@0630 LEONID Administration Lidocaine 1 patch 07/08/25 15:40 07/10/25 08:49 Lidocaine 5% Patch TRANSDERM 1 patch DAILY LEONID Administration Methocarbamol 500 mg 07/09/25 10:53 07/10/25 12:51 Methocarbamol 500 Mg Tablet PO 500 mg DAILY PRN Administration spasms Morphine Sulfate 1 mg 07/09/25 10:43 Morphine Sulfate (*Crx) 4 Mg/Ml Inj IV PUSH Q3H PRN Breakthrough Pain Mupirocin 1 applic 07/07/25 09:00 07/10/25 12:53 Mupirocin 2% Oint 22 Gm Tube TOPICAL Not Given TID [facility] Ondansetron HCl 4 mg 07/05/25 19:24 07/07/25 12:31 Ondansetron Inj 4 Mg/2 Ml Vial IV PUSH 4 mg Q4H PRN Administration Nausea Oxycodone HCl 2.5 mg 07/09/25 10:43 07/10/25 12:51 Oxycodone Hcl (*Crx) 2.5 Mg Tab Ir PO 2.5 mg Q4H PRN Administration 1st line for pain Quetiapine Fumarate 200 mg 07/06/25 21:00 07/09/25 20:42 Quetiapine Fumarate 100 Mg Tablet PO 200 mg HS LEONID Administration Sertraline HCl 50 mg 07/06/25 09:00 07/10/25 08:47 Sertraline Hcl 50 Mg Tablet PO 50 mg DAILY LEONID Administration Spironolactone 200 mg 07/11/25 09:00 Spironolactone 50 Mg Tablet PO QAM [facility] Radiology Results: ITS Impressions Chest/Abdomen/Pelvis CTA 07/05/25 18:58 IMPRESSION: 1. No pulmonary embolism or other acute cardiopulmonary disease. 2. Cirrhosis with stigmata of portal venous hypertension and large amount of ascites in the abdomen and pelvis. 3. Cardiomegaly and enlargement of the central pulmonary arteries consistent with pulmonary arterial hypertension. 4. Moderate-sized umbilical hernia containing ascites. Chest X-Ray 07/06/25 08:47 IMPRESSION: 1. No definite acute cardiopulmonary findings given portable technique. Recommend short interval follow-up repeat x-ray. Paracentesis Ultrasound 07/06/25 14:19 IMPRESSION: 1. Successful ultrasound-guided paracentesis yielding 6000 mL of clear yellow fluid. Labs Labs: Laboratory Results - last 24 hr 07/10/25 05:00 WBC 3.2 L RBC 3.03 L Hgb 9.4 L Hct 28.6 L MCV 94.4 MCH 31.0 MCHC 32.9 RDW 15.4 H Plt Count 86 L MPV 9.6 Immature Gran % (Auto) 0.3 Neut % (Auto) 46.3 Lymph % (Auto) 32.7 [place] % (Auto) 16.8 H Eos % (Auto) 2.9 Baso % (Auto) 1.0 Lymph # (Auto) 1.03 [place] # (Auto) 0.5 Eos # (Auto) 0.1 Baso # (Auto) 0.0 Abs Immat Gran (auto) 0.01 Absolute Neuts (auto) 1.5 Absolute Nucleated RBC 0.000 Band Neutrophils % Not Reportable Nucleated RBC % 0.0 Platelet Estimate Decreased % Immature Plt Fraction 1.8 Hypochromasia 1+ Schistocytes None seen Sodium 135 L Potassium 3.7 Chloride 101 Carbon Dioxide 29 Anion Gap 5 BUN 12 Creatinine 0.90 Estim Creat Clear Calc 86 Estimated GFR > 60 Glucose 98 Calcium 8.1 L Total Bilirubin 0.9 AST 45 H ALT 19 Alkaline Phosphatase 72 Ammonia 48 H Total Protein 5.5 L Albumin 2.6 L Quality VTE Prophylaxis VTE prophylaxis: pharmacologic ordered Hospitalist MIPS Advance Care Plan I have confirmed that the patient's Advanced Care Plan is present, code status is documented, or surrogate decision maker is listed in patient medical record.: Yes Medication Reconciliation I have utilized all available resources to obtain, update and review the patients current medications (includes all prescriptions, OTC, herbals, cannabis, and nutritional supplements).: Yes
[2025-07-10] MEDS: ALPRAZolam (*CRX) 0.5 MG TABLET 1 MG PO (21:38)
[2025-07-10 22:00] VITALS: BP 110/51; PULSE 73; RESP 18; TEMP 37.2; O2SAT 83
[2025-07-11 05:31] VITALS: BP 103/50; PULSE 80; RESP 18; TEMP 36.6; O2SAT 96
[2025-07-11 05:38] LABS: Hematocrit 30.4 % (37.0-47.0); Hemoglobin 9.7 g/dL (12.0-15.0); Immature Granulocyte Percent A 0.3 % (0-0.5); Immature Platelet Fraction Pct 1.4 % (0.9-11.2); Lymphocytes Absolute Auto 1.07 K/mm3 (0.9-3.2); Mean Corpuscular HGB Conc 31.9 g/dl (32-36); Mean Corpuscular Hemoglobin 30.6 pg (26-34); Mean Corpuscular Volume 95.9 fl (80-100); Nucleated Red Blood Cells Absolute Auto 0.000 K/mm3 (0.0-0.012); Nucleated Red Blood Cells Perc 0.0 % (0.0-0.2); Platelet Count Result 92 k/mm3 (150-375); Red Blood Count 3.17 M/mm3 (4.2-5.4); White Blood Count 3.6 K/mm3 (4.5-10.0)
[2025-07-11 05:48] LABS: INR 1.3; Prothrombin Time 16.0 Seconds (11.1-14.7)
[2025-07-11] MEDS: LEVOTHYROXINE SODIUM 50 MCG TABLET PO (05:57)
[2025-07-11 06:00] LABS: Alanine Aminotransferase 19 U/L (6-35); Albumin Level 2.5 g/dL (3.5-5.1); Alkaline Phosphatase 76 U/L (38-126); Anion Gap 4 mmol/L (4-12); Aspartate Amino Transferase 47 U/L (14-36); Bilirubin,Total 0.7 mg/dL (0.2-1.3); Blood Urea Nitrogen 11 mg/dL (7-17); Calcium 8.0 mg/dL (8.4-10.2); Carbon Dioxide 29 mmol/L (22-30); Chloride 102 mmol/L (98-107); Estimated CRCL calculation 88 ml/min; Estimated Glomerular Filt Rate > 60; Glucose 112 mg/dL (65-110); Potassium 3.8 mmol/L (3.4-5.0); Sodium 135 mmol/L (137-145); Total Protein 5.7 g/dL (6.3-8.2)
[2025-07-11] MEDS: SERTRALINE HCL 50 MG TABLET PO (08:56)
[2025-07-11] MEDS: buPROPion HCL SR (12HR) 100 MG TABCR 200 MG PO (08:56)
[2025-07-11] MEDS: MUPIROCIN 2% OINT 22 GM TUBE 1 APPLIC TOPICAL ×3 (08:59→16:32)
--- NOTE | 2025-07-11 11:45 | PC.NURSE ---
Patient left the unit at 11:40am for paracentesis.
--- NOTE | 2025-07-11 12:40 | PC.NURSE ---
patient returned from ultrasound via wheelchair.
--- NOTE | 2025-07-11 13:02 | P.PNIM_ITS ---
Progress Note: A&P Assessment and Plan (1) Cirrhosis of liver: Qualifiers: Hepatic cirrhosis type: other cirrhosis Qualified Code(s): K74.69 - Other cirrhosis of liver Code(s): K74.60 - Unspecified cirrhosis of liver Status: Acute (2) Abdominal ascites: Qualifiers: Ascites type: other type Qualified Code(s): R18.8 - Other ascites Code(s): R18.8 - Other ascites Status: Acute (3) Left sided abdominal pain: Code(s): R10.9 - Unspecified abdominal pain Status: Acute (4) Abnormal urinalysis: Code(s): R82.90 - Unspecified abnormal findings in urine Status: Acute (5) Delirium: Code(s): R41.0 - Disorientation, unspecified Status: Acute Plan 55-year-old female with history of untreated hepatitis-C, cirrhosis, ascites, portal hypertension with history of upper esophageal bleed s/p banding in [place] 12/2024, anxiety, class 3 obesity, remote tobacco abuse, current nicotine abuse, Presenting to [facility] ER on 07/05/2025 complaining of left- sided rib pain after a fall, did not hit her head. Had large volume ascites on admission. S/P US guided paracentesis 07/06. Cultures sent CTA chest abdomen pelvis with contrast: 1. No pulmonary embolism or other acute cardiopulmonary disease. 2. Cirrhosis with stigmata of portal venous hypertension and large amount of ascites in the abdomen and pelvis. 3. Cardiomegaly and enlargement of the central pulmonary arteries consistent with pulmonary arterial hypertension. 4. Moderate-sized umbilical hernia containing ascites. Confusion Mild confusion intermittency. Hepatic encephalopathy vs delirium and increased confusion with higher doses of opiates. no new infectious symptoms Ammonia is elevated, 48 Could consider starting rifaximin, discuss with GI if not tolerating lactulose. Refuses lactulose at times. Takes Decreased oxycodone and morphine Acute pain Reduced oxycodone from 10>5>2.5 mg for mild confusion. Using IV morphine overnight. Decrease from 2mg>1mg Add lidocaine patch, trial of methocarbamol 500mg daily for muscle spasms Cirrhosis Ascites Has been getting a paracentesis every few weeks, last 1 week prior to admission Out of medications for a week prior to admission GI consulted, appreciate recommendations s/p paracentesis 07/06, 6L off. Albumin post procedure Low sodium diet. Fluid restrict 1000ml/day Follow LFT's, Bili 1.8<1.9>1.1, 1.2 Continue lactulose, having regular BM's Not diuresing much with IV Furosemide, increased to 40mg IV BID with albumin. Spoke to GI, Dr. Calvo Increasing spironolactone 100mg to 200mg daily. Lasix 40mg<80mg--continue for discharge Follow daily weight: 288lbs on 07/05, 273lbs on 07/11 (prior to paracentesis) 07/11 paracentesis done today with 8 L taken off, ascites fluid labs ordered Has follow up in GI office 07/13 Hepatitis C Outpatient follow up with GI Hepatitis-C viral load pending (done on 07/06/25) Anxiety Continue home quetiapine, bupropion, Xanax. Hypokalemia: replace and recheck. [id number] once today Hyponatremia: Mild, continue to monitor, improved Thrombocytopenia: Continue to monitor Follow-up urine and blood cultures. No antibiotics for now. Diet: Low-sodium diet. Saline lock IV. VS q4 SCDs. Heparin for DVT prophylaxis FULL CODE Subjective Date/time seen: 07/11/25 13:02 Interval history: Patient underwent paracentesis today and 8 L were removed. She is continued to have abdominal pain. She had labs reordered today with the ascites fluid. She states she has 9 minutes taking pain medication anymore because she feels like it does not help. She is still having bowel movements. Exam Narrative: GENERAL: uncomfortable, complaining on pain HENMT: moist mucous membranes RESPIRATORY: clear to auscultation, no increased respiratory effort CARDIO: Regular rate and rhythm GI: Extremely distended, ascites present, diminished bowel sounds SKIN/EXTREMITIES: no rashes, no redness or tenderness NEURO: PROM intact, answers questions appropriately, A&O x4 Objective Data Vital Signs Vital Signs: Vital Signs - 24 hr 07/10/25 14:00 07/10/25 20:00 07/10/25 22:00 Temperature 97.4 F L 99.0 F Pulse Rate 77 73 Respiratory Rate 16 18 Blood Pressure 124/54 L 110/51 L Pulse Oximetry 96 83 L Oxygen Delivery Room Air 07/11/25 05:31 07/11/25 08:58 Temperature 97.8 F Pulse Rate 80 Respiratory Rate 18 Blood Pressure 103/50 L Pulse Oximetry 96 Oxygen Delivery Room Air Intake/Output Intake/Output: Intake & Output 07/08/25 07/09/25 07/10/25 07/11/25 23:59 23:59 23:59 23:59 Intake Total 1340 4620 1920 2 Output Total 0 8000 Balance 1340 4620 1920 -7998 Meds/Results Medications: Active Medications Generic Name Dose Route Start Last Admin Trade Name Freq PRN Reason Stop Dose Admin Alprazolam 1 mg 07/06/25 01:09 07/10/25 21:38 Alprazolam (*Crx) 0.5 Mg Tablet PO 1 mg BID PRN Administration Anxiety Bupropion HCl 200 mg 07/07/25 09:00 07/11/25 08:56 Bupropion Hcl Sr (12hr) 100 Mg Tabcr PO 200 mg DAILY LEONID Administration Dextrose 12.5 gm 07/05/25 19:24 Dextrose 50% 25 Gm/50 Ml Syringe IV PUSH PRN PRN Hypoglycemia Protocol Furosemide 40 mg 07/06/25 09:00 07/08/25 09:55 Furosemide 40 Mg Tablet PO 40 mg On Hold: 07/08/25 15:27 DAILY LEONID Administration Furosemide 80 mg 07/11/25 09:00 07/11/25 09:07 Furosemide 80 Mg Tablet PO Not Given DAILY LEONID Glucagon 1 mg 07/05/25 19:24 Glucagon For Inj 1 Mg Vial IM PRN PRN Hypoglycemia Protocol Glucose 15 gm 07/05/25 19:24 Glucose Oral Gel 15 Gm Of Glucse In 37.5 Gm Tube PO PRN PRN Hypoglycemia Protocol Heparin Sodium (Porcine) 5,000 units 07/09/25 14:00 07/10/25 14:37 Heparin Sodium 5,000 Units/Ml Vial SUB-Q 5,000 units On Hold: 07/10/25 18:48 Q8HR LEONID Administration Dextrose 1,000 mls @ 100 mls/hr 07/05/25 19:24 Dextrose 5% 1,000 Ml IVPB PRN PRN Hypoglycemia Protocol Lactulose 20 gm 07/10/25 18:00 07/11/25 09:08 Lactulose 20 Gm/30 Ml Udc PO Not Given Q4H LEONID Levothyroxine Sodium 50 mcg 07/06/25 06:30 07/11/25 05:57 Levothyroxine Sodium 50 Mcg Tablet PO 50 mcg DAILY@0630 [facility] Administration Lidocaine 1 patch 07/08/25 15:40 07/11/25 08:57 Lidocaine 5% Patch TRANSDERM Not Given DAILY [facility] Methocarbamol 500 mg 07/09/25 10:53 07/10/25 12:51 Methocarbamol 500 Mg Tablet PO 500 mg DAILY PRN Administration spasms Morphine Sulfate 1 mg 07/09/25 10:43 Morphine Sulfate (*Crx) 4 Mg/Ml Inj IV PUSH Q3H PRN Breakthrough Pain Mupirocin 1 applic 07/07/25 09:00 07/11/25 08:59 Mupirocin 2% Oint 22 Gm Tube TOPICAL 1 applic TID [facility] Administration Ondansetron HCl 4 mg 07/05/25 19:24 07/07/25 12:31 Ondansetron Inj 4 Mg/2 Ml Vial IV PUSH 4 mg Q4H PRN Administration Nausea Oxycodone HCl 2.5 mg 07/09/25 10:43 07/10/25 18:41 Oxycodone Hcl (*Crx) 2.5 Mg Tab Ir PO 2.5 mg Q4H PRN Administration 1st line for pain Quetiapine Fumarate 200 mg 07/06/25 21:00 07/10/25 21:34 Quetiapine Fumarate 100 Mg Tablet PO 200 mg HS [facility] Administration Sertraline HCl 50 mg 07/06/25 09:00 07/11/25 08:56 Sertraline Hcl 50 Mg Tablet PO 50 mg DAILY [facility] Administration Spironolactone 200 mg 07/11/25 09:00 07/11/25 09:08 Spironolactone 50 Mg Tablet PO Not Given QAM [facility] Radiology Results: ITS Impressions Chest/Abdomen/Pelvis CTA 07/05/25 18:58 IMPRESSION: 1. No pulmonary embolism or other acute cardiopulmonary disease. 2. Cirrhosis with stigmata of portal venous hypertension and large amount of ascites in the abdomen and pelvis. 3. Cardiomegaly and enlargement of the central pulmonary arteries consistent with pulmonary arterial hypertension. 4. Moderate-sized umbilical hernia containing ascites. Chest X-Ray 07/06/25 08:47 IMPRESSION: 1. No definite acute cardiopulmonary findings given portable technique. Recommend short interval follow-up repeat x-ray. Labs Labs: Laboratory Results - last 24 hr 07/11/25 04:58 WBC 3.6 L RBC 3.17 L Hgb 9.7 L Hct 30.4 L MCV 95.9 MCH 30.6 MCHC 31.9 L RDW 15.7 H Plt Count 92 L MPV 10.1 Immature Gran % (Auto) 0.3 Neut % (Auto) 48.7 Lymph % (Auto) 29.8 [place] % (Auto) 17.3 H Eos % (Auto) 3.3 Baso % (Auto) 0.6 Lymph # (Auto) 1.07 [place] # (Auto) 0.6 Eos # (Auto) 0.1 Baso # (Auto) 0.0 Abs Immat Gran (auto) 0.01 Absolute Neuts (auto) 1.8 Absolute Nucleated RBC 0.000 Nucleated RBC % 0.0 % Immature Plt Fraction 1.4 PT 16.0 H INR 1.3 Sodium 135 L Potassium 3.8 Chloride 102 Carbon Dioxide 29 Anion Gap 4 BUN 11 Creatinine 0.86 Estim Creat Clear Calc 88 Estimated GFR > 60 Glucose 112 H Calcium 8.0 L Total Bilirubin 0.7 AST 47 H ALT 19 Alkaline Phosphatase 76 Total Protein 5.7 L Albumin 2.5 L
[2025-07-11] MEDS: LACTULOSE 20 GM/30 ML UDC PO (13:08)
[2025-07-11 13:30] LABS: Appearance Peritoneal Fluid Clear (Clear); Color Peritoneal Fluid Yellow (Colorless); Eosinophils Peritoneal Fluid 4 %; Lymphocytes Peritoneal Fluid 57 %; Macrophages Peritoneal Fluid 24 %; Mesothelial Cells Peritoneal Fluid 7 %; Monocytes Peritoneal Fluid 2 %; Neutrophils Peritoneal Fluid 6 % (0-25); Nucleated Cells Peritoneal Flu 305 /uL (0-500); Source Peritoneal Fluid Peritoneal Fluid
[2025-07-11 13:34] VITALS: BP 121/52; PULSE 77; RESP 16; TEMP 36.3; O2SAT 96
[2025-07-11] MEDS: MORPHINE SULFATE (*CRX) 4 MG/ML INJ 1 MG IV PUSH ×2 (16:17→21:30)
[2025-07-11 21:08] VITALS: BP 115/56; PULSE 83; RESP 17; TEMP 36.9; O2SAT 99
[2025-07-11] MEDS: ALPRAZolam (*CRX) 0.5 MG TABLET 1 MG PO (21:28)
[2025-07-12] MEDS: oxyCODONE HCL (*CRX) 2.5 MG TAB IR PO ×2 (00:05→09:19)
[2025-07-12] MEDS: MORPHINE SULFATE (*CRX) 4 MG/ML INJ 1 MG IV PUSH (05:26)
[2025-07-12 05:33] LABS: Hematocrit 31.7 % (37.0-47.0); Hemoglobin 10.1 g/dL (12.0-15.0); Immature Granulocyte Percent A 0.3 % (0-0.5); Immature Platelet Fraction Pct 1.3 % (0.9-11.2); Lymphocytes Absolute Auto 1.29 K/mm3 (0.9-3.2); Mean Corpuscular HGB Conc 31.9 g/dl (32-36); Mean Corpuscular Hemoglobin 30.3 pg (26-34); Mean Corpuscular Volume 95.2 fl (80-100); Nucleated Red Blood Cells Absolute Auto 0.000 K/mm3 (0.0-0.012); Nucleated Red Blood Cells Perc 0.0 % (0.0-0.2); Platelet Count Result 97 k/mm3 (150-375); Red Blood Count 3.33 M/mm3 (4.2-5.4); White Blood Count 4.0 K/mm3 (4.5-10.0)
[2025-07-12] MEDS: LEVOTHYROXINE SODIUM 50 MCG TABLET PO (05:38)
[2025-07-12 05:45] LABS: Alanine Aminotransferase 21 U/L (6-35); Albumin Level 2.6 g/dL (3.5-5.1); Alkaline Phosphatase 83 U/L (38-126); Anion Gap 4 mmol/L (4-12); Aspartate Amino Transferase 48 U/L (14-36); Bilirubin,Total 0.8 mg/dL (0.2-1.3); Blood Urea Nitrogen 12 mg/dL (7-17); Calcium 8.2 mg/dL (8.4-10.2); Carbon Dioxide 26 mmol/L (22-30); Chloride 104 mmol/L (98-107); Estimated CRCL calculation 96 ml/min; Estimated Glomerular Filt Rate > 60; Glucose 97 mg/dL (65-110); Potassium 3.8 mmol/L (3.4-5.0); Sodium 134 mmol/L (137-145); Total Protein 5.8 g/dL (6.3-8.2)
[2025-07-12 05:58] LABS: Anisocytosis 1+; Hypochromasia 1+; Microcytosis 1+ (NORMAL); Schistocytes None Seen
[2025-07-12 06:00] VITALS: BP 114/63; PULSE 78; RESP 19; TEMP 37.2; O2SAT 97
--- NOTE | 2025-07-12 07:51 | P.PNIM_ITS ---
Progress Note: A&P Assessment and Plan (1) Cirrhosis of liver: Qualifiers: Hepatic cirrhosis type: other cirrhosis Qualified Code(s): K74.69 - Other cirrhosis of liver Code(s): K74.60 - Unspecified cirrhosis of liver Status: Acute (2) Abdominal ascites: Qualifiers: Ascites type: other type Qualified Code(s): R18.8 - Other ascites Code(s): R18.8 - Other ascites Status: Acute (3) Left sided abdominal pain: Code(s): R10.9 - Unspecified abdominal pain Status: Acute (4) Abnormal urinalysis: Code(s): R82.90 - Unspecified abnormal findings in urine Status: Acute (5) Delirium: Code(s): R41.0 - Disorientation, unspecified Status: Acute Plan 55-year-old female with history of untreated hepatitis-C, cirrhosis, ascites, portal hypertension with history of upper esophageal bleed s/p banding in [place] 12/2024, anxiety, class 3 obesity, remote tobacco abuse, current nicotine abuse, Presenting to [facility] ER on 07/05/2025 complaining of left- sided rib pain after a fall, did not hit her head. Had large volume ascites on admission. S/P US guided paracentesis 07/06. Cultures sent CTA chest abdomen pelvis with contrast: 1. No pulmonary embolism or other acute cardiopulmonary disease. 2. Cirrhosis with stigmata of portal venous hypertension and large amount of ascites in the abdomen and pelvis. 3. Cardiomegaly and enlargement of the central pulmonary arteries consistent with pulmonary arterial hypertension. 4. Moderate-sized umbilical hernia containing ascites. Confusion Mild confusion intermittency. Hepatic encephalopathy vs delirium and increased confusion with higher doses of opiates. no new infectious symptoms Ammonia is elevated, 48 Could consider starting rifaximin, discuss with GI if not tolerating lactulose. Refuses lactulose at times. Takes Decreased oxycodone and morphine Acute pain Reduced oxycodone from 10>5>2.5 mg for mild confusion. Using IV morphine overnight. Decrease from 2mg>1mg Add lidocaine patch, trial of methocarbamol 500mg daily for muscle spasms Cirrhosis Ascites Has been getting a paracentesis every few weeks, last 1 week prior to admission Out of medications for a week prior to admission GI consulted, appreciate recommendations s/p paracentesis 07/06, 6L off. Albumin post procedure Low sodium diet. Fluid restrict 1000ml/day Follow LFT's, Bili 1.8<1.9>1.1, 1.2 Continue lactulose, having regular BM's Not diuresing much with IV Furosemide, increased to 40mg IV BID with albumin. Spoke to GI, Dr. Calvo Increasing spironolactone 100mg to 200mg daily. Lasix 40mg<80mg--continue for discharge Follow daily weight: 288lbs on 07/05, 273lbs on 07/11 (prior to paracentesis) Status post paracentesis 07/11/2025: 8 L off. Has follow up in GI office 07/13 Hepatitis C Outpatient follow up with GI Hepatitis-C viral load pending (done on 07/06/25) Anxiety Continue home quetiapine, bupropion, Xanax. Hypokalemia: replace and monitor Hyponatremia: Mild, continue to monitor, improved Thrombocytopenia: Continue to monitor Follow-up urine and blood cultures. No antibiotics for now. Diet: Low-sodium diet. Saline lock IV. VS q4 SCDs. Heparin for DVT prophylaxis FULL CODE Subjective Date/time seen: 07/12/25 07:51 Interval history: No overnight events. Patient underwent paracentesis yesterday. Review of Systems Review of Systems: All systems reviewed & are unremarkable except as noted in HPI and below (Subjective) Exam Narrative: GENERAL: uncomfortable, complaining on pain HENMT: moist mucous membranes RESPIRATORY: clear to auscultation, no increased respiratory effort CARDIO: Regular rate and rhythm GI: Extremely distended, ascites present, diminished bowel sounds SKIN/EXTREMITIES: no rashes, no redness or tenderness NEURO: PROM intact, answers questions appropriately, A&O x4 Objective Data Vital Signs Vital Signs: Vital Signs - 24 hr 07/11/25 08:58 07/11/25 13:34 07/11/25 20:00 Temperature 97.3 F L Pulse Rate 77 Respiratory Rate 16 Blood Pressure 121/52 L Pulse Oximetry 96 Oxygen Delivery Room Air Room Air 07/11/25 21:08 07/12/25 06:00 Temperature 98.4 F 98.9 F Pulse Rate 83 78 Respiratory Rate 17 19 Blood Pressure 115/56 L 114/63 Pulse Oximetry 99 97 Oxygen Delivery Intake/Output Intake/Output: Intake & Output 07/09/25 07/10/25 07/11/25 07/12/25 23:59 23:59 23:59 23:59 Intake Total 4620 1920 242 Output Total 0 8000 Balance 4690 1216 -7621 Meds/Results Medications: Active Medications Generic Name Dose Route Start Last Admin Trade Name Freq PRN Reason Stop Dose Admin Alprazolam 1 mg 07/06/25 01:09 07/11/25 21:28 Alprazolam (*Crx) 0.5 Mg Tablet PO 1 mg BID PRN Administration Anxiety Bupropion HCl 200 mg 07/07/25 09:00 07/11/25 08:56 Bupropion Hcl Sr (12hr) 100 Mg Tabcr PO 200 mg DAILY LEONID Administration Dextrose 12.5 gm 07/05/25 19:24 Dextrose 50% 25 Gm/50 Ml Syringe IV PUSH PRN PRN Hypoglycemia Protocol Furosemide 40 mg 07/06/25 09:00 07/08/25 09:55 Furosemide 40 Mg Tablet PO 40 mg On Hold: 07/08/25 15:27 DAILY LEONID Administration Furosemide 80 mg 07/11/25 09:00 07/11/25 09:07 Furosemide 80 Mg Tablet PO Not Given DAILY LEONID Glucagon 1 mg 07/05/25 19:24 Glucagon For Inj 1 Mg Vial IM PRN PRN Hypoglycemia Protocol Glucose 15 gm 07/05/25 19:24 Glucose Oral Gel 15 Gm Of Glucse In 37.5 Gm Tube PO PRN PRN Hypoglycemia Protocol Heparin Sodium (Porcine) 5,000 units 07/09/25 14:00 07/10/25 14:37 Heparin Sodium 5,000 Units/Ml Vial SUB-Q 5,000 units On Hold: 07/10/25 18:48 Q8HR LEONID Administration Dextrose 1,000 mls @ 100 mls/hr 07/05/25 19:24 Dextrose 5% 1,000 Ml IVPB PRN PRN Hypoglycemia Protocol Lactulose 20 gm 07/10/25 18:00 07/12/25 05:38 Lactulose 20 Gm/30 Ml Udc PO Not Given Q4H LEONID Levothyroxine Sodium 50 mcg 07/06/25 06:30 07/12/25 05:38 Levothyroxine Sodium 50 Mcg Tablet PO 50 mcg DAILY@0630 LEONID Administration Lidocaine 1 patch 07/08/25 15:40 07/11/25 08:57 Lidocaine 5% Patch TRANSDERM Not Given DAILY LEONID Methocarbamol 500 mg 07/09/25 10:53 07/12/25 05:26 Methocarbamol 500 Mg Tablet PO 500 mg DAILY PRN Administration spasms Morphine Sulfate 1 mg 07/09/25 10:43 07/12/25 05:26 Morphine Sulfate (*Crx) 4 Mg/Ml Inj IV PUSH 1 mg Q3H PRN Administration Breakthrough Pain Mupirocin 1 applic 07/07/25 09:00 07/11/25 16:32 Mupirocin 2% Oint 22 Gm Tube TOPICAL 1 applic TID LEONID Administration Ondansetron HCl 4 mg 07/05/25 19:24 07/07/25 12:31 Ondansetron Inj 4 Mg/2 Ml Vial IV PUSH 4 mg Q4H PRN Administration Nausea Oxycodone HCl 2.5 mg 07/09/25 10:43 07/12/25 00:05 Oxycodone Hcl (*Crx) 2.5 Mg Tab Ir PO 2.5 mg Q4H PRN Administration 1st line for pain Quetiapine Fumarate 200 mg 07/06/25 21:00 07/11/25 21:27 Quetiapine Fumarate 100 Mg Tablet PO 200 mg HS LEONID Administration Sertraline HCl 50 mg 07/06/25 09:00 07/11/25 08:56 Sertraline Hcl 50 Mg Tablet PO 50 mg DAILY LEONID Administration Spironolactone 200 mg 07/11/25 09:00 07/11/25 09:08 Spironolactone 50 Mg Tablet PO Not Given QAM [facility] Radiology Results: ITS Impressions Chest/Abdomen/Pelvis CTA 07/05/25 18:58 IMPRESSION: 1. No pulmonary embolism or other acute cardiopulmonary disease. 2. Cirrhosis with stigmata of portal venous hypertension and large amount of ascites in the abdomen and pelvis. 3. Cardiomegaly and enlargement of the central pulmonary arteries consistent with pulmonary arterial hypertension. 4. Moderate-sized umbilical hernia containing ascites. Chest X-Ray 07/06/25 08:47 IMPRESSION: 1. No definite acute cardiopulmonary findings given portable technique. Recommend short interval follow-up repeat x-ray. Paracentesis Ultrasound 07/11/25 13:06 IMPRESSION: 1. Successful ultrasound-guided paracentesis yielding 8000 mL of yellow/straw- colored fluid. Labs Labs: Laboratory Results - last 24 hr 07/11/25 07/12/25 12:10 04:57 WBC 4.0 L RBC 3.33 L Hgb 10.1 L Hct 31.7 L MCV 95.2 MCH 30.3 MCHC 31.9 L RDW 15.8 H Plt Count 97 L MPV 9.9 Immature Gran % (Auto) 0.3 Neut % (Auto) 46.3 Lymph % (Auto) 32.3 [place] % (Auto) 17.3 H Eos % (Auto) 3.0 Baso % (Auto) 0.8 Lymph # (Auto) 1.29 [place] # (Auto) 0.7 H Eos # (Auto) 0.1 Baso # (Auto) 0.0 Abs Immat Gran (auto) 0.01 Absolute Neuts (auto) 1.9 Absolute Nucleated RBC 0.000 Band Neutrophils % Not Reportable Nucleated RBC % 0.0 Platelet Estimate Decreased % Immature Plt Fraction 1.3 Hypochromasia 1+ Anisocytosis 1+ Microcytosis 1+ Schistocytes None seen Sodium 134 L Potassium 3.8 Chloride 104 Carbon Dioxide 26 Anion Gap 4 BUN 12 Creatinine 0.79 Estim Creat Clear Calc 96 Estimated GFR > 60 Glucose 97 Calcium 8.2 L Total Bilirubin 0.8 AST 48 H ALT 21 Alkaline Phosphatase 83 Total Protein 5.8 L Albumin 2.6 L Peritoneal Source Peritoneal fluid Peritoneal Color Yellow Peritoneal Appearance Clear Peritoneal RBC < 2000 Periton Nuc Cells 305 Periton Neutrophils 6 Periton Lymphocytes 57 Peritoneal Monocytes 2 Peritoneal Eosinophils 4 Periton Mesothelial 7 Periton Macrophages 24
[2025-07-12] MEDS: buPROPion HCL SR (12HR) 100 MG TABCR 200 MG PO (08:59)
[2025-07-12] MEDS: SERTRALINE HCL 50 MG TABLET PO (09:00)
[2025-07-12] MEDS: FUROSEMIDE 80 MG TABLET PO (09:00)
[2025-07-12] MEDS: LACTULOSE 20 GM/30 ML UDC PO (09:00)
[2025-07-12] MEDS: MUPIROCIN 2% OINT 22 GM TUBE 1 APPLIC TOPICAL (09:03)
[2025-07-12] MEDS: SPIRONOLACTONE 50 MG TABLET 200 MG PO (09:08)
[2025-07-12 09:20] VITALS: RESP 18; O2SAT 97
--- NOTE | 2025-07-12 10:21 | P.DS_ITS ---
DS: Admitting Diagnosis Discharge Date 07/12/2025 Admitting Diagnosis Abdominal pain DS: Discharge Diagnosis Discharge Diagnosis (1) Cirrhosis of liver: Qualifiers: Hepatic cirrhosis type: other cirrhosis Qualified Code(s): K74.69 - Other cirrhosis of liver Code(s): K74.60 - Unspecified cirrhosis of liver Status: Acute (2) Abdominal ascites: Qualifiers: Ascites type: other type Qualified Code(s): R18.8 - Other ascites Code(s): R18.8 - Other ascites Status: Acute (3) Left sided abdominal pain: Code(s): R10.9 - Unspecified abdominal pain Status: Acute (4) Abnormal urinalysis: Code(s): R82.90 - Unspecified abnormal findings in urine Status: Acute (5) Delirium: Code(s): R41.0 - Disorientation, unspecified Status: Acute DS: Summary Hospital Course Hospital Course: 55-year-old female with history of untreated hepatitis-C, cirrhosis, ascites, portal hypertension with history of upper esophageal bleed s/p banding in [place] 12/2024, anxiety, class 3 obesity, remote tobacco abuse, current nicotine abuse, Presenting to [facility] ER on 07/05/2025 complaining of left- sided rib pain after a fall, did not hit her head. Had large volume ascites on admission. S/P US guided paracentesis 07/06. Cultures sent CTA chest abdomen pelvis with contrast: 1. No pulmonary embolism or other acute cardiopulmonary disease. 2. Cirrhosis with stigmata of portal venous hypertension and large amount of ascites in the abdomen and pelvis. 3. Cardiomegaly and enlargement of the central pulmonary arteries consistent with pulmonary arterial hypertension. 4. Moderate-sized umbilical hernia containing ascites. Confusion Mild confusion intermittency. Hepatic encephalopathy vs delirium and increased confusion with higher doses of opiates. no new infectious symptoms Ammonia is elevated, 48 Could consider starting rifaximin, discuss with GI if not tolerating lactulose. Refuses lactulose at times. Decreased oxycodone and morphine Acute pain Reduced oxycodone from 10>5>2.5 mg for mild confusion. Using IV morphine overnight. Decrease from 2mg>1mg Add lidocaine patch, trial of methocarbamol 500mg daily for muscle spasms Tapered opiates Cirrhosis Ascites Has been getting a paracentesis every few weeks, last 1 week prior to admission Out of medications for a week prior to admission GI consulted, appreciate recommendations s/p paracentesis 07/06, 6L off. Albumin post procedure Low sodium diet. Fluid restrict 1000ml/day Follow LFT's, Bili 1.8<1.9>1.1, 1.2 Continue lactulose, having regular BM's Not diuresing much with IV Furosemide, increased to 40mg IV BID with albumin. Spoke to GI, Dr. Calvo Increasing spironolactone 100mg to 200mg daily. Lasix 40mg<80mg--continue for discharge Follow daily weight: 288lbs on 07/05, 273lbs on 07/11 (prior to paracentesis) Status post paracentesis 07/11/2025: 8 L off. Has follow up in GI office 07/13 Hepatitis C Outpatient follow up with GI Hepatitis-C viral load pending (done on 07/06/25) Anxiety Continue home quetiapine, bupropion, Xanax. Hypokalemia: replace and monitor Hyponatremia: Mild, continue to monitor, improved Thrombocytopenia: Continue to monitor Follow-up urine and blood cultures. No antibiotics for now. Diet: Low-sodium diet. Saline lock IV. VS q4 SCDs. Heparin for DVT prophylaxis FULL CODE Time Spent with Patient Time attestation: Total time spent providing and/or coordinating discharge services: 45 mins Exam Narrative: GENERAL: uncomfortable, complaining on pain HENMT: moist mucous membranes RESPIRATORY: clear to auscultation, no increased respiratory effort CARDIO: Regular rate and rhythm GI: Extremely distended, ascites present, diminished bowel sounds SKIN/EXTREMITIES: no rashes, no redness or tenderness NEURO: PROM intact, answers questions appropriately, A&O x4 DS: Data Data Completed and Pending Completed studies during hospitalization: Pending at discharge 07/05/25 18:46 Cytology [PTH] Routine Labs on day of discharge: Labs from last 24 hours 07/12/25 07/11/25 04:57 12:10 WBC 4.0 L RBC 3.33 L Hgb 10.1 L Hct 31.7 L MCV 95.2 MCH 30.3 MCHC 31.9 L RDW 15.8 H Plt Count 97 L MPV 9.9 Immature Gran % (Auto) 0.3 Neut % (Auto) 46.3 Lymph % (Auto) 32.3 [place] % (Auto) 17.3 H Eos % (Auto) 3.0 Baso % (Auto) 0.8 Lymph # (Auto) 1.29 [place] # (Auto) 0.7 H Eos # (Auto) 0.1 Baso # (Auto) 0.0 Abs Immat Gran (auto) 0.01 Absolute Neuts (auto) 1.9 Absolute Nucleated RBC 0.000 Band Neutrophils % Not Reportable Nucleated RBC % 0.0 Platelet Estimate Decreased % Immature Plt Fraction 1.3 Hypochromasia 1+ Anisocytosis 1+ Microcytosis 1+ Schistocytes None seen Sodium 134 L Potassium 3.8 Chloride 104 Carbon Dioxide 26 Anion Gap 4 BUN 12 Creatinine 0.79 Estim Creat Clear Calc 96 Estimated GFR > 60 Glucose 97 Calcium 8.2 L Total Bilirubin 0.8 AST 48 H ALT 21 Alkaline Phosphatase 83 Total Protein 5.8 L Albumin 2.6 L Peritoneal Source Peritoneal fluid Peritoneal Color Yellow Peritoneal Appearance Clear Peritoneal RBC < 2000 Periton Nuc Cells 305 Periton Neutrophils 6 Periton Lymphocytes 57 Peritoneal Monocytes 2 Peritoneal Eosinophils 4 Periton Mesothelial 7 Periton Macrophages 24 Preliminary micro results at discharge 07/05/25 19:03 Blood Culture - Preliminary Blood 07/05/25 19:03 Blood Culture - Preliminary Blood Imaging Radiologist's impression: ITS Impressions Chest/Abdomen/Pelvis CTA 07/05/25 18:58 IMPRESSION: 1. No pulmonary embolism or other acute cardiopulmonary disease. 2. Cirrhosis with stigmata of portal venous hypertension and large amount of ascites in the abdomen and pelvis. 3. Cardiomegaly and enlargement of the central pulmonary arteries consistent with pulmonary arterial hypertension. 4. Moderate-sized umbilical hernia containing ascites. Chest X-Ray 07/06/25 08:47 IMPRESSION: 1. No definite acute cardiopulmonary findings given portable technique. Recommend short interval follow-up repeat x-ray. Paracentesis Ultrasound 07/06/25 14:19 IMPRESSION: 1. Successful ultrasound-guided paracentesis yielding 6000 mL of clear yellow fluid. Paracentesis Ultrasound 07/11/25 13:06 IMPRESSION: 1. Successful ultrasound-guided paracentesis yielding 8000 mL of yellow/straw- colored fluid. Discharge Plan Discharge Attending physician on discharge: Josemanuel Javier Consulting providers: Dian Pugh Discharging Clinician: Josemanuel Javier Anticipated Discharge Date/Time: 07/12/25 10:11 Patient Disposition: Home Activity: as tolerated Diet: as tolerated and low sodium Patient Instructions: Antibiotic Form Patient Language: Northern Irish Stand Alone Forms: General Discharge Information Follow-up/Referrals: Winsome,Nicholas Williamson Jr., MD [Primary Care Provider, Unknown] - 1 Week Prateek Kovacs MD [Physician, Gastroenterology] - Keep Reg. Scheduled Appt. Discharge Medications: New lidocaine [Lidoderm] 5 % Adhesive Patch,Medicated 1 patch transdermal DAILY Qty: 30 0RF methocarbamol 500 mg Tablet 500 mg PO DAILY PRN (Reason: spasms) Qty: 30 0RF furosemide 80 mg Tablet 80 mg PO DAILY Qty: 30 0RF spironolactone [Aldactone] 50 mg Tablet 200 mg PO QAM Qty: 120 0RF Continued alprazolam 1 mg tablet 1 mg PO BID PRN (Reason: anxiety) Patient Comments: Pt stated she takes every night bupropion HCl 200 mg tablet sustained-release 12 hr 200 mg PO Q12H lactulose [Constulose] 10 gram/15 mL solution 30 ml PO TID quetiapine 100 mg tablet 200 mg PO HS levothyroxine 50 mcg tablet 50 mcg PO DAILY pantoprazole 40 mg tablet,delayed release (DR/EC) 40 mg PO Q12H sertraline 50 mg tablet 50 mg PO DAILY mupirocin 2 % ointment 1 applic TOPICAL TID Rx Instructions: apply to belly button ondansetron 4 mg tablet,disintegrating 4 mg PO TID PRN (Reason: nausea and vomiting) Discontinued furosemide 20 mg tablet 40 mg PO DAILY Other Ambulatory Orders: Complete Blood Count with Diff (Routine) Timeframe: 1 Week Location: Determined by Patient Ordered By: Josemanuel Javier Comprehensive Metabolic Panel (Routine) Timeframe: 1 Week Location: Determined by Patient Ordered By: Josemanuel Javier Date of admission: 07/08/25 16:18 Primary Care Provider: TashaNicholas Jr. Admitting Provider: Patricia Villaseñor Attending physician on admission: Patricia Villaseñor Condition: Stable
--- NOTE | 2025-07-12 11:20 | PCNWS ---
Weekly nutritional screen. Patient is tolerating current diet with adequate intake. No weight loss reported. No nutritional needs at this time.
== END 2025-07-12 12:20 | disposition home or self-care (01) ==
LOC: ANHED 18:43 → ANH3MEDSUR 20:08 → ANH2MED 21:39
PROVIDERS: Internal Medicine Gastroenterology; Nurse Practitioner Acute Care; Admitting Provider General Practice; Emergency Provider Physician Assistant; PCP Hospitalist; Visit Provider Internal Medicine
DX: K74.60 Unspecified cirrhosis of liver (principal); R18.8 Other ascites; B19.20 Unspecified viral hepatitis C without hepatic coma; K76.82 Hepatic encephalopathy; K72.10 Chronic hepatic failure without coma; R82.90 Unspecified abnormal findings in urine; D69.6 Thrombocytopenia, unspecified; K76.6 Portal hypertension; K42.9 Umbilical hernia without obstruction or gangrene; E87.6 Hypokalemia; E87.1 Hypo-osmolality and hyponatremia; R41.0 Disorientation, unspecified; M62.838 Other muscle spasm; R07.89 Other chest pain; W18.30XA Fall on same level, unspecified, initial encounter; F41.9 Anxiety disorder, unspecified; E66.01 Morbid (severe) obesity due to excess calories; Z91.148 Patient's other noncompliance with medication regimen for other reason; Z72.0 Tobacco use; Z68.39 Body mass index [BMI] 39.0-39.9, adult; Z87.19 Personal history of other diseases of the digestive system
CPT/HCPCS: 36415; 49083; 71045; 71275; 74177; 80048; 80053; 80076; 81001; 81025; 82042; 82140; 82150; 82945; 83605; 83690; 83735; 83880; 84157; 84484; 85025; 85055; 85610; 85730; 86803; 87040; 87086; 87205; 87522; 87902; 88108; 88305; 89051; 93005; 96365; 96366; 96374; 96375; 96376; 99285; A9270; G0378; G0379; J1644; J1938; J2270; J2405; P9047; Q9967

== ENCOUNTER 2025-07-15 23:00 | Observation (INO) | payer OTHER, SELFPAY ==
--- NOTE | ~2025-07-15 | CT_ITS ---
CT HEAD NON-CONTRAST Clinical History: seizure? Comparison: None Technique: Unenhanced axial images skull base to vertex Coronal, sagittal reformats CT images acquired with automatic exposure control for dose reduction DLP: 832 mGy-cm Findings: Extensive streak artifact along skull base and posterior fossa. Sulci, ventricles: Unremarkable. No intracerebral hemorrhage. No evidence acute territorial infarct. No mass effect, midline shift. Bony calvarium intact. Visualized paranasal sinuses: Clear. Mastoid air cells: Clear. IMPRESSION: 1. No acute intracranial findings. Reviewed, dictated and finalized at location R.
--- NOTE | ~2025-07-15 | CT_ITS ---
EXAMINATION: CT thoracic spine wo con DATE: 07/16/2025 07:38 INDICATION: Back pain. TECHNIQUE: Computed tomography (CT) of the thoracic spine was performed without intravenous contrast. Automated exposure control and iterative reconstruction technique were employed. The dose-length product was 1510.46 mGy-cm. COMPARISON: Chest CT 07/05/2025 FINDINGS: The lungs demonstrate mild atelectasis. There is 10 degrees dextroscoliosis of thoracic spine. There is mild chronic height loss of many vertebral bodies. There is an acute compression fracture of T2 with less than 1/5 loss of height. There is a burst fracture of T5 with 3/5 loss of height and retropulsion of bone 2 mm into central spinal canal. There are chronic compression fractures of T11 and T12. There is multilevel facet joint osteoarthritis, severe at multiple levels. There is mild neural foraminal stenosis at multiple levels on either side. On the left, there is moderate neural foraminal stenosis at T2-T3 and T5-T6. There is mild central canal stenosis at T5-T6, T7-T8, and T8-T9. IMPRESSION: 1. Acute compression fracture of T2. Acute burst fracture of T5. 2. Moderate thoracic spondylosis. 3. Thoracic dextroscoliosis. Reviewed, dictated and finalized at location E.
--- NOTE | ~2025-07-15 | CT_ITS ---
EXAMINATION: CT cervical spine wo con DATE: 07/16/2025 07:37 INDICATION: Neck pain. Back pain. TECHNIQUE: Computed tomography (CT) of the cervical spine was performed without intravenous contrast. Automated exposure control and iterative reconstruction technique were employed. The dose-length product was 552.94 mGy-cm. COMPARISON: CT cervical spine 05/27/2016 FINDINGS: There is 7 degrees levocurvature of cervical spine. There is mild chronic height loss of T1-T3 vertebral bodies. There is mildly decreased disc height at C3-C4, C4-C5, and C5-C6. There is multilevel mild facet joint osteoarthritis. There is multilevel mild uncovertebral joint osteoarthritis. There is moderate left uncovertebral joint osteoarthritis at C3-C4. There is mild left neural foraminal stenosis at C3-C4, C6-C7, and C7-T1. There is mild central canal stenosis at C3-C4 and C5-C6. IMPRESSION: 1. Mild cervical spondylosis. Reviewed, dictated and finalized at location E.
--- NOTE | ~2025-07-15 | XR_ITS ---
Examination: XR chest 1V Clinical History: AMS Comparison: 07/06/2025 Technique: Portable AP Findings: Heart size normal. Lungs clear. Except minimal left basilar atelectasis. No acute bony abnormality. IMPRESSION: 1. No acute cardiopulmonary findings given portable technique. Reviewed, dictated and finalized at location R.
[2025-07-15 23:12] VITALS: BP 148/78; PULSE 80; RESP 20; TEMP 36.9; O2SAT 100
[2025-07-16] VITALS (27 sets, daily range): BP systolic 102–158; BP diastolic 52–93; PULSE 70–88; RESP 10–25; TEMP 36.4–36.6; O2SAT 91–99; BMI 39.1
--- NOTE | 2025-07-16 03:51 | PC.NURSE ---
no answer for vital signs at triage
--- NOTE | 2025-07-16 05:59 | ECG_ITS ---
Test Date: 2025-07-16 07:00:02 Measurements Intervals [place] Rate: 75 P: -2 [place]: 153 QRS: -2 QRSD: 106 T: 20 QT: 430 QTc: 481 Interpretive Statements SINUS RHYTHM POSSIBLE ANTERIOR MYOCARDIAL INFARCTION , PROBABLY OLD BASELINE ARTIFACT- I, II, III, AVR, AVL, AVF, V3 ABNORMAL ECG Compared to ECG 07/05/2025 16:45:25 No significant changes Electronically Signed On 07-16-2025 07:26:12 CDT by Varghese Lau D.O.
[2025-07-16 06:19] LABS: Hematocrit 38.5 % (37.0-47.0); Hemoglobin 12.6 g/dL (12.0-15.0); Immature Granulocyte Percent A 0.4 % (0-0.5); Lymphocytes Absolute Auto 1.68 K/mm3 (0.9-3.2); Mean Corpuscular HGB Conc 32.7 g/dl (32-36); Mean Corpuscular Hemoglobin 29.8 pg (26-34); Mean Corpuscular Volume 91.0 fl (80-100); Nucleated Red Blood Cells Absolute Auto 0.000 K/mm3 (0.0-0.012); Nucleated Red Blood Cells Perc 0.0 % (0.0-0.2); Platelet Count Result 128 k/mm3 (150-375); Red Blood Count 4.23 M/mm3 (4.2-5.4); White Blood Count 8.4 K/mm3 (4.5-10.0)
[2025-07-16 06:29] LABS: Ammonia 14 umol/L (9-30)
[2025-07-16 06:30] LABS: INR 1.2; Partial Thromboplastin Time 29.3 Seconds (22.3-36.8); Prothrombin Time 15.4 Seconds (11.1-14.7)
[2025-07-16 06:31] LABS: Alanine Aminotransferase 38 U/L (6-35); Albumin Level 3.7 g/dL (3.5-5.1); Alkaline Phosphatase 119 U/L (38-126); Anion Gap 10 mmol/L (4-12); Aspartate Amino Transferase 71 U/L (14-36); Bilirubin,Total 1.9 mg/dL (0.2-1.3); Blood Urea Nitrogen 12 mg/dL (7-17); Calcium 9.1 mg/dL (8.4-10.2); Carbon Dioxide 23 mmol/L (22-30); Chloride 99 mmol/L (98-107); Estimated CRCL calculation 82 ml/min; Estimated Glomerular Filt Rate > 60; Glucose 124 mg/dL (65-110); Potassium 3.5 mmol/L (3.4-5.0); Sodium 132 mmol/L (137-145); Total Protein 8.1 g/dL (6.3-8.2)
[2025-07-16 07:02] LABS: Thyroid Stimulating Hormone Reflex 4.620 uIU/mL (0.465-4.68)
--- NOTE | 2025-07-16 07:18 | ED.GENADULT ---
HPI - General Adult General Chief complaint: Seizure Stated complaint: seizure Time Seen by Provider: 07/16/25 06:53 History of Present Illness HPI narrative: 55-year-old female presenting to emergency department for evaluation for back pain. Patient states that when she sat up this morning and her recliner she had onset of upper back pain. Patient also does suspect that she had a seizure. Patient describes having nonepileptic stress-induced seizures. Patient recently moved back from [place] and states that she had complications her medications and is only able to restart her lactulose today. Patient reports she was having some prior confusion but appears alert orientated at this time. Patient does have prior history of pancreatitis, end-stage liver disease, bowel obstruction. Patient does often have to get paracentesis. Patient was admitted on 07/05 for paracentesis related issues. Related Data Home Medications ?Medication ?Instructions ?Recorded ?Confirmed ?Last Taken ?Type alprazolam 1 mg tablet 1 mg PO BID PRN anxiety 07/05/25 07/13/25 07/04/25 History bupropion HCl 200 mg tablet,12 hr 200 mg PO Q12H 07/05/25 07/13/25 Unknown History sustained-release levothyroxine 50 mcg tablet 50 mcg PO DAILY 07/05/25 07/13/25 Unknown History mupirocin 2 % topical ointment 1 applic topical TID 07/05/25 07/13/25 Unknown History ondansetron 4 mg disintegrating 4 mg PO TID PRN nausea and vomiting 07/05/25 07/13/25 Unknown History tablet pantoprazole 40 mg tablet,delayed 40 mg PO Q12H 07/05/25 07/13/25 Unknown History release quetiapine 100 mg tablet 200 mg PO HS 07/05/25 07/13/25 Unknown History sertraline 50 mg tablet 50 mg PO DAILY 07/05/25 07/13/25 Unknown History Allergies Allergy/AdvReac Type Severity Reaction Status Date / Time adhesive tape AdvReac Intermediate blister Verified 07/15/25 23:17 Review of Systems Review of Systems: All systems reviewed & are unremarkable except as noted in HPI and below PMFSH Family History Family History Father Lung cancer Social History Social History Smoking status: Former smoker Lack of Transportation: No Lack of Food: Never True Current Housing: I Have Housing Concerned About Future Housing: No Difficulty Paying Gas/Electric Bills: No Difficulty Paying for Meds: No Currently Unemployed: No Education: High School Diploma/GED Difficulty w/ Childcare or Family Care: No Spiritual care concerns: No Exam Narrative: APPEARANCE: Well appearing, no pain, no distress, well-nourished. HEAD: normocephalic, atraumatic. EYES: PERRLA/EOMI, conjunctivae clear. NOSE: Normal no drainage EARS:TMS clear with good light reflex. THROAT: Pharynx clear, no exudate. NECK: Supple. No adenopathy, no masses. RESPIRATORY: Airway patent, respirations nonlabored. Clear to auscultation bilaterally, no rales, rhonchi, wheezing. CARDIOVASCULAR: Regular rate and rhythm without murmurs rubs or gallops. ABDOMINAL: Soft, nontender, nondistended, normal bowel sounds MUSCULOSKELETAL: Thoracic tenderness to palpation with no palpated deformity. Patient was more tender along the paraspinal muscles of the thoracic spine. NEURO: Alert. Cranial nerves II through XII intact. Good gait. Good coordination SKIN: Warm, dry. Normal Color Course Vital Signs Vital signs: Vital Signs Temperature 98.4 F 07/15/25 23:12 Pulse Rate 80 07/15/25 23:12 Respiratory Rate 20 07/15/25 23:12 Blood Pressure 148/78 H 07/15/25 23:12 Pulse Oximetry 100 07/15/25 23:12 Oxygen Delivery Room Air 07/15/25 23:12 Temperature 98.4 F 07/15/25 23:12 Pulse Rate 74 07/16/25 06:45 Respiratory Rate 10 L 07/16/25 06:45 Blood Pressure 139/82 07/16/25 06:16 Pulse Oximetry 95 07/16/25 08:28 Oxygen Delivery Room Air 07/16/25 08:28 Medical Decision Making [facility] Narrative Medical decision making narrative: 55-year-old female presents emergency department for evaluation after having suspected seizure and back pain. Patient is afebrile with no leukocytosis hemoglobin of 12.6. No significant acute abnormalities the CMP. Mild elevation and T bili AST and ALT. Head CT was negative. Patient did have compression fractures of T12 and a burst fracture of T5. After this imaging patient did have a 2nd seizure that was tonic-clonic in nature. Patient was started on 2.5 mg of IV Versed response to the seizure along with starting 1 g of IV Keppra. Neurology was consulted. Neurosurgery was consulted regarding the results of the CT scan and was also conveyed the patient did have a seizure after the CT scan was obtained. At time of admission patient was altered from her Versed, patient will need a repeat neuro exam when she was no longer postictal or altered from her Versed. Case was discussed with Neurology and they are consulted. Patient was started on IV Keppra. Case was discussed with hospitalist patient was admitted to the IMU. Patient family updated on results of workup and plan for admission. Differential Diagnosis Differential Diagnosis: Subdural hematoma, subarachnoid hemorrhage, cervical spine fracture, thoracic spine fracture, UTI, COVID, RSV influenza medication noncompliance, benzodiazepine withdrawal Vital Signs Vital Signs: Vital Signs Temperature 98.4 F 07/15/25 23:12 Pulse Rate 80 07/15/25 23:12 Respiratory Rate 20 07/15/25 23:12 Blood Pressure 148/78 H 07/15/25 23:12 Pulse Oximetry 100 07/15/25 23:12 Oxygen Delivery Room Air 07/15/25 23:12 Temperature 98.4 F 07/15/25 23:12 Pulse Rate 74 07/16/25 06:45 Respiratory Rate 10 L 07/16/25 06:45 Blood Pressure 139/82 07/16/25 06:16 Pulse Oximetry 95 07/16/25 08:28 Oxygen Delivery Room Air 07/16/25 08:28 Lab Data 07/16/25 06:12 07/16/25 06:12 Labs: Lab Results 07/16/25 Range/Units 06:12 WBC 8.4 (4.5-10.0) K/mm3 RBC 4.23 (4.2-5.4) M/mm3 Hgb 12.6 (12.0-15.0) g/dL Hct 38.5 (37.0-47.0) % MCV 91.0 (80-100) fl MCH 29.8 (26-34) pg MCHC 32.7 (32-36) g/dl RDW 15.3 H (11.5-14.5) % Plt Count 128 L (150-375) k/mm3 MPV 9.1 (7.4-10.4) fl Immature Gran % (Auto) 0.4 (0-0.5) % Neut % (Auto) 64.4 (45.5-73.1) % Lymph % (Auto) 20.1 (18.3-44.2) % [place] % (Auto) 13.4 H (2.6-8.5) % Eos % (Auto) 1.0 (0-4.4) % Baso % (Auto) 0.7 (0.2-1.2) % Lymph # (Auto) 1.68 (0.9-3.2) K/mm3 [place] # (Auto) 1.1 H (0.1-0.6) K/mm3 Eos # (Auto) 0.1 (0-0.3) K/mm3 Baso # (Auto) 0.1 (0.0-0.1) K/mm3 Abs Immat Gran (auto) 0.03 (0.00-0.031) K/mm3 Absolute Neuts (auto) 5.4 (1.3-6.7) K/mm3 Absolute Nucleated RBC 0.000 (0.0-0.012) K/mm3 Nucleated RBC % 0.0 (0.0-0.2) % PT 15.4 H (11.1-14.7) Seconds INR 1.2 APTT 29.3 (22.3-36.8) Seconds Sodium 132 L (137-145) mmol/L Potassium 3.5 (3.4-5.0) mmol/L Chloride 99 (98-107) mmol/L Carbon Dioxide 23 (22-30) mmol/L Anion Gap 10 (4-12) mmol/L BUN 12 (7-17) mg/dL Creatinine 0.88 (0.7-1.0) mg/dL Estim Creat Clear Calc 82 ml/min Estimated GFR > 60 (59 - ) Glucose 124 H (65-110) mg/dL Calcium 9.1 (8.4-10.2) mg/dL Total Bilirubin 1.9 H (0.2-1.3) mg/dL AST 71 H (14-36) U/L ALT 38 H (6-35) U/L Alkaline Phosphatase 119 (38-126) U/L Ammonia 14 (9-30) umol/L Total Protein 8.1 (6.3-8.2) g/dL Albumin 3.7 (3.5-5.1) g/dL TSH (Reflex) 4.620 (0.465-4.68) uIU/mL Free T4 1.47 (0.78-2.19) ng/dL Total T3 1.71 H (0.82-1.58) NG/ML Ethyl Alcohol < 10 (<10) mg/dL Discharge Plan Discharge Clinical Impression: Closed wedge compression fracture of T2 vertebra, Stable burst fracture of T5 vertebra, Back pain, Seizure Patient Disposition: Still a Patient Condition: Serious
[2025-07-16] MEDS: CYCLOBENZAPRINE HCL 10 MG TABLET PO (07:43)
[2025-07-16 07:52] LABS: Free T4 Free Thyroxine Reflex 1.47 ng/dL (0.78-2.19)
[2025-07-16] MEDS: MIDAZOLAM HCL (*CRX) 2 MG/2 ML VIAL 6 MG (08:26)
--- NOTE | 2025-07-16 08:26 | PC.NURSE ---
a tech came out of pt room and said the pt was seizing. this RN, another RN, and EDP went to bedside. EDP gave verbal order for 5mg of versed, once this RN got to pt bedside the pt was coming out of it and EDP changed the order to 2.5mg of versed. that was administered in the IV at 0825
[2025-07-16] MEDS: levETIRAcetam 1000MG/NACL100ML 1,000 MG/100 ML BAG 400 MG IVPB (08:33)
[2025-07-16] MEDS: HYDROmorphone HCL INJ (*CRX) 1 MG/ML SYR 0.5 MG IV PUSH ×4 (08:58→20:45)
[2025-07-16] MEDS: LACTATED RINGERS 1,000 ML 125 ML IV CONT (08:59)
[2025-07-16 09:27] LABS: Total Triiodothyronine (T3) 1.71 NG/ML (0.82-1.58)
[2025-07-16 09:43] LABS: Add Urine Microscopic? YES; Appearance Urine Clear (Clear); Glucose Urine UA Negative (Negative); Leukocyte Esterase Ur Trace LEU/UL (Negative); Need Manual Microscopic Reviewed; Nitrate Urine Negative (Negative); Specific Grav Ur 1.028 (1.001-1.035)
[2025-07-16 09:49] LABS: Cannabinoid Screen Urine Negative (Negative)
[2025-07-16] MEDS: ONDANSETRON INJ 4 MG/2 ML VIAL IV PUSH (12:01)
[2025-07-16] MEDS: ALPRAZolam (*CRX) 0.5 MG TABLET 1 MG PO (12:01)
--- NOTE | 2025-07-16 13:14 | PC.NURSE ---
hospitalist called at this time and informed of the pt now on oxygen
--- NOTE | 2025-07-16 14:37 | PM.IMHP ---
H&P: HPI History of Present Illness Date/Time: 07/16/25 14:37 Chief Complaint: Fall/seizure Narrative: This is a 55-year-old female who presents to the ED for evaluation of back pain. Patient stated that she set up in the morning and started to hurt in her upper back. Patient also suspected that she had a seizure. 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 She recently moved back from [place]. She has history of cirrhosis and was recently admitted for the same. While in the ER she had another generalized tonic-clonic seizure. She received 2.5 mg of IV Versed for the seizure and was also loaded with IV Keppra 1 g. Her vitals have been stable Laboratory studies showed WBC of 8.4 hemoglobin of 12.6 hematocrit of 38.5 platelet count a 128. Chem panel showed sodium of 132 potassium 3.5 chloride 99 bicarbonate 23 BUN 12 creatinine 0.88 blood glucose of 124. LFTs with total bilirubin of 1.9 AST 71 ALT 38 alk phosphatase 119 ammonia level was normal at 14. TSH was normal at 4.6 to ethyl alcohol level was less than 10. CT head was negative CT thoracic spine for the back pain was performed which showed compression fracture of T12 and burst fracture of T5. Neurosurgery was consulted and suggested thoracic brace urology has also been consulted from the ER. She is admitted in this setting for further treatment. Review of Systems Review of Systems: - CONSTITUTIONAL: Denies weight loss, fever and chills. - HEENT: Denies changes in vision and hearing - RESPIRATORY: Denies SOB and cough. - CV: Denies palpitations and CP. - GI: Denies abdominal pain, nausea, vomiting and diarrhea. - : Denies dysuria and urinary frequency. - MSK: Reports back pain - SKIN: Denies rash and pruritus. - NEUROLOGICAL: See HPI - PSYCHIATRIC: Denies recent changes in mood. Denies anxiety and depression. [facility] Family History Family History Father Lung cancer Social History Social History Smoking status: Former smoker Lack of Transportation: No Lack of Food: Never True Current Housing: I Have Housing Concerned About Future Housing: No Difficulty Paying Gas/Electric Bills: No Difficulty Paying for Meds: No Currently Unemployed: No Education: High School Diploma/GED Difficulty w/ Childcare or Family Care: No Spiritual care concerns: No Meds Home Medications and Allergies Home Medications ?Medication ?Instructions ?Recorded ?Confirmed ?Type alprazolam 1 mg tablet 1 mg PO BID PRN anxiety 07/05/25 07/16/25 History bupropion HCl 200 mg tablet,12 hr 200 mg PO Q12H 07/05/25 07/16/25 History sustained-release levothyroxine 50 mcg tablet 50 mcg PO DAILY 07/05/25 07/16/25 History mupirocin 2 % topical ointment 1 applic topical TID 07/05/25 07/16/25 History ondansetron 4 mg disintegrating 4 mg PO TID PRN nausea and vomiting 07/05/25 07/16/25 History tablet pantoprazole 40 mg tablet,delayed 40 mg PO Q12H 07/05/25 07/16/25 History release quetiapine 100 mg tablet 200 mg PO HS 07/05/25 07/16/25 History sertraline 50 mg tablet 50 mg PO DAILY 07/05/25 07/16/25 History methocarbamol 500 mg tablet 500 mg PO DAILY PRN spasms #30 tabs 07/12/25 07/16/25 Rx furosemide 80 mg tablet 80 mg PO DAILY #30 tabs 07/13/25 07/16/25 Rx lactulose 10 gram/15 mL oral 30 ml PO TID 30 days #2,700 mL 07/13/25 07/16/25 Rx solution (Constulose) spironolactone 50 mg tablet 200 mg (4 x 50 mg) PO QAM #120 tabs 07/13/25 07/16/25 Rx (Aldactone) Allergies Allergy/AdvReac Type Severity Reaction Status Date / Time adhesive tape AdvReac Intermediate blister Verified 07/15/25 23:17 Vital Signs Vital Signs - 24 hr 07/15/25 23:12 07/16/25 03:50 07/16/25 05:46 Temperature 98.4 F Pulse Rate 80 77 80 Respiratory Rate 20 18 18 Blood Pressure 148/78 H 152/74 H 149/87 H Pulse Oximetry 100 98 Oxygen Delivery Room Air Oxygen Flow Rate 07/16/25 05:48 07/16/25 05:51 07/16/25 06:00 Temperature Pulse Rate 73 74 Respiratory Rate 19 16 Blood Pressure 149/87 H Pulse Oximetry 96 97 Oxygen Delivery Room Air Oxygen Flow Rate 07/16/25 06:01 07/16/25 06:15 07/16/25 06:16 Temperature Pulse Rate 70 71 71 Respiratory Rate 13 14 16 Blood Pressure 158/85 H 139/82 Pulse Oximetry 96 97 97 Oxygen Delivery Oxygen Flow Rate 07/16/25 06:45 07/16/25 07:01 07/16/25 08:28 Temperature Pulse Rate 74 76 Respiratory Rate 10 L 13 Blood Pressure 145/93 H Pulse Oximetry 99 95 95 Oxygen Delivery Room Air Oxygen Flow Rate 07/16/25 09:31 07/16/25 10:16 07/16/25 11:16 Temperature Pulse Rate 77 77 82 Respiratory Rate 17 24 H 18 Blood Pressure 121/60 117/60 126/70 Pulse Oximetry 95 Oxygen Delivery Oxygen Flow Rate 07/16/25 11:31 07/16/25 11:46 07/16/25 12:11 Temperature Pulse Rate 77 84 77 Respiratory Rate 19 25 H 13 Blood Pressure 108/58 L 103/56 L 114/52 L Pulse Oximetry 96 95 93 Oxygen Delivery Oxygen Flow Rate 07/16/25 13:00 07/16/25 13:11 07/16/25 14:01 Temperature Pulse Rate 88 84 Respiratory Rate 16 22 H Blood Pressure 112/58 L 110/81 Pulse Oximetry 93 96 97 Oxygen Delivery Nasal Cannula Oxygen Flow Rate 2 Exam Narrative: APPEARANCE: Well appearing, no pain, no distress, well-nourished. HEAD: normocephalic, atraumatic. EYES: PERRLA/EOMI, conjunctivae clear. NOSE: Normal no drainage NECK: Supple. No adenopathy, no masses. RESPIRATORY: Airway patent, respirations nonlabored. Clear to auscultation bilaterally, no rales, rhonchi, wheezing. CARDIOVASCULAR: Regular rate and rhythm without murmurs rubs or gallops. ABDOMINAL: Soft, nontender, nondistended, normal bowel sounds NEURO: Alert. Cranial nerves II through XII intact. SKIN: Warm, dry. Normal Color H&P: Results Labs Labs: Short CBC 07/16/25 Range/Units 06:12 WBC 8.4 (4.5-10.0) K/mm3 Hgb 12.6 (12.0-15.0) g/dL Hct 38.5 (37.0-47.0) % Plt Count 128 L (150-375) k/mm3 BMP 07/16/25 06:12 Sodium 132 L Potassium 3.5 Chloride 99 Carbon Dioxide 23 BUN 12 Creatinine 0.88 Glucose 124 H Calcium 9.1 Liver Function 07/16/25 Range/Units 06:12 Total Bilirubin 1.9 H (0.2-1.3) mg/dL AST 71 H (14-36) U/L ALT 38 H (6-35) U/L Alkaline Phosphatase 119 (38-126) U/L Albumin 3.7 (3.5-5.1) g/dL Urine 07/16/25 Range/Units 09:21 Urine Color Dark yellow (Yellow) Urine Appearance Clear (Clear) Urine pH 5.5 (5.0-9.0) Ur Specific [place] 1.028 (1.001-1.035) Urine Protein 1+ H (Negative) mg/dL Urine Glucose (UA) Negative (Negative) mg/dL Assessment and Plan Assessment and plan (1) Cirrhosis of liver: Qualifiers: Hepatic cirrhosis type: other cirrhosis Qualified Code(s): K74.69 - Other cirrhosis of liver Code(s): K74.60 - Unspecified cirrhosis of liver Status: Acute (2) Portal hypertension: Code(s): K76.6 - Portal hypertension Status: Acute (3) Hepatitis C: Code(s): B19.20 - Unspecified viral hepatitis C without hepatic coma Status: Acute (4) Abdominal ascites: Qualifiers: Ascites type: other type Qualified Code(s): R18.8 - Other ascites Code(s): R18.8 - Other ascites Status: Acute (5) Back pain: Code(s): M54.9 - Dorsalgia, unspecified Status: Acute (6) Closed wedge compression fracture of T2 vertebra: Code(s): S22.020A - Wedge compression fracture of second thoracic vertebra, initial encounter for closed fracture Status: Acute (7) Stable burst fracture of T5 vertebra: Code(s): S22.051A - Stable burst fracture of T5-T6 vertebra, initial encounter for closed fracture Status: Acute (8) Seizure: Code(s): R56.9 - Unspecified convulsions Status: Acute Plan This is a 55-year-old female who presents to the ED for evaluation of back pain. Patient stated that she set up in the morning and started to hurt in her upper back. Patient also suspected that she had a seizure. 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 She recently moved back from [place]. She has history of cirrhosis and was recently admitted for the same. While in the ER she had another generalized tonic-clonic seizure. She received 2.5 mg of IV Versed for the seizure and was also loaded with IV Keppra 1 g. Her vitals have been stable Laboratory studies showed WBC of 8.4 hemoglobin of 12.6 hematocrit of 38.5 platelet count a 128. Chem panel showed sodium of 132 potassium 3.5 chloride 99 bicarbonate 23 BUN 12 creatinine 0.88 blood glucose of 124. LFTs with total bilirubin of 1.9 AST 71 ALT 38 alk phosphatase 119 ammonia level was normal at 14. TSH was normal at 4.6 to ethyl alcohol level was less than 10. CT head was negative CT thoracic spine for the back pain was performed which showed compression fracture of T12 and burst fracture of T5. Neurosurgery was consulted and suggested thoracic brace urology has also been consulted from the ER. She is admitted in this setting for further treatment. Back pain post fall Compression fracture T2 burst fracture of T5 no neuro deficits noted neurosurgery consulted Recurrent seizure tonic clonic in nature with missed in the ER. Loaded with Keppra. She has been out of her benzodiazepine that she chronically was taking however since he moved from [place] she has not been able to feel it. She has been off alprazolam since 11/30 days now. She has been loaded with IV Keppra. Neurology was reconsulted. CT head scan was negative. Continue Keppra will also resume her alprazolam. Hepatic encephalopathy recently admitted for the same with ammonia level of 48. 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
[2025-07-16] MEDS: LACTULOSE 20 GM/30 ML UDC PO (16:28)
[2025-07-16] MEDS: MUPIROCIN 2% OINT 22 GM TUBE 1 APPLIC TOPICAL (16:28)
--- NOTE | 2025-07-16 18:12 | ADMGEN ---
This patient, Jil Esteves, was admitted to IMU Room 210-01 at approximately 1810. Patient/family oriented to hospital policies and general routines including ID bracelet, bed and alarms, visiting hours, pain management, procedures, bathroom and other care routines, personal items, smoking policy, room service/diet, and visiting hours. Information on how to activate the Rapid Response Team has been discussed. Patient/Family are encouraged to report perceived risks to care and to ask questions if they do not understand what they are told or what they should do.
[2025-07-16] MEDS: buPROPion HCL SR (12HR) 100 MG TABCR 200 MG PO (20:44)
[2025-07-16] MEDS: PANTOPRAZOLE 40 MG TABLET PO (20:44)
[2025-07-17] VITALS (13 sets, daily range): BP systolic 90–134; BP diastolic 47–79; PULSE 67–83; RESP 12–18; TEMP 36.5–36.9; O2SAT 92–96
[2025-07-17] MEDS: KETOROLAC 15 MG/ML VIAL (*BKC) IV PUSH ×4 (00:04→22:07)
[2025-07-17] MEDS: HYDROcodone/acetaminophen (*CRX) 5-325 MG TABLET 1 TAB PO ×2 (04:17→12:58)
[2025-07-17] MEDS: CYCLOBENZAPRINE HCL 10 MG TABLET PO ×2 (04:18→12:58)
[2025-07-17 04:22] LABS: Hematocrit 34.1 % (37.0-47.0); Hemoglobin 11.0 g/dL (12.0-15.0); Immature Granulocyte Percent A 0.4 % (0-0.5); Immature Platelet Fraction Pct 1.4 % (0.9-11.2); Lymphocytes Absolute Auto 1.21 K/mm3 (0.9-3.2); Mean Corpuscular HGB Conc 32.3 g/dl (32-36); Mean Corpuscular Hemoglobin 30.5 pg (26-34); Mean Corpuscular Volume 94.5 fl (80-100); Nucleated Red Blood Cells Absolute Auto 0.000 K/mm3 (0.0-0.012); Nucleated Red Blood Cells Perc 0.0 % (0.0-0.2); Platelet Count Result 85 k/mm3 (150-375); Red Blood Count 3.61 M/mm3 (4.2-5.4); White Blood Count 5.5 K/mm3 (4.5-10.0)
[2025-07-17 04:42] LABS: Alanine Aminotransferase 31 U/L (6-35); Albumin Level 3.0 g/dL (3.5-5.1); Alkaline Phosphatase 109 U/L (38-126); Anion Gap 5 mmol/L (4-12); Aspartate Amino Transferase 66 U/L (14-36); Bilirubin,Total 1.8 mg/dL (0.2-1.3); Blood Urea Nitrogen 10 mg/dL (7-17); Calcium 8.6 mg/dL (8.4-10.2); Carbon Dioxide 27 mmol/L (22-30); Chloride 99 mmol/L (98-107); Estimated CRCL calculation 87 ml/min; Estimated Glomerular Filt Rate > 60; Glucose 82 mg/dL (65-110); Magnesium 2.1 mg/dL (1.6-2.3); Potassium 3.2 mmol/L (3.4-5.0); Sodium 131 mmol/L (137-145); Total Protein 6.8 g/dL (6.3-8.2)
[2025-07-17 05:12] LABS: Anisocytosis 1+
[2025-07-17 05:13] LABS: Schistocytes None Seen
[2025-07-17] MEDS: LEVOTHYROXINE SODIUM 50 MCG TABLET PO (06:40)
[2025-07-17] MEDS: SERTRALINE HCL 50 MG TABLET PO (09:03)
[2025-07-17] MEDS: LACTULOSE 20 GM/30 ML UDC PO ×2 (09:03→17:20)
[2025-07-17] MEDS: FUROSEMIDE 80 MG TABLET PO (09:03)
[2025-07-17] MEDS: SPIRONOLACTONE 50 MG TABLET 200 MG PO (09:03)
[2025-07-17] MEDS: PANTOPRAZOLE 40 MG TABLET PO ×2 (09:03→21:25)
[2025-07-17] MEDS: buPROPion HCL SR (12HR) 100 MG TABCR 200 MG PO ×2 (09:04→21:25)
[2025-07-17] MEDS: ALPRAZolam (*CRX) 0.5 MG TABLET 1 MG PO ×2 (09:07→21:25)
[2025-07-17] MEDS: MUPIROCIN 2% OINT 22 GM TUBE 1 APPLIC TOPICAL ×3 (09:35→17:22)
--- NOTE | 2025-07-17 10:53 | WPDNEUROSGCN ---
Assessment and Plan Assessment and plan (1) Back pain: Code(s): M54.9 - Dorsalgia, unspecified Status: Acute Assessment and Plan: Jil Esteves is a 55 year old female who presented to the Emergency Department due to seizures and back pain. The patient had a seizure while in the ED. CT thoracic spine showed chronic T11 and T12 compression fractures with minimal loss of height. There are acute appearing fractures involving T2 and T5. The T2 compression fracture has 20% MERVIN with no canal compromise. The T5 Burst fracture is a stable fracture with 20-30% MERVIN with very minimal canal compromise. Very mild central canal stenosis. - Stable fractures - No surgical intervention - Recommend TLSO brace. I will call brace company - F/u in 8 weeks with xrays in clinic Consult date: 07/17/25 Reason for consult: Thoracic Fractures HPI: Jil Esteves is a 55 year old female who presented to the Emergency Department due to seizures and back pain. The patient had a seizure while in the ED. CT thoracic spine showed chronic T11 and T12 compression fractures with minimal loss of height. There are acute appearing fractures involving T2 and T5. The T2 compression fracture has 20% MERVIN with no canal compromise. The T5 Burst fracture is a stable fracture with 20-30% MERVIN with very minimal canal compromise. Very mild central canal stenosis. Per the ED provider she had mild tenderness to palpation of the thoracic spine. No radicular pain. No weakness PMFSH Family History Family History Father Lung cancer Social History Social History Smoking packs per day: 1 Smoking cigarettes per day: 20.0 Years smoked: 30 Smoking pack-years: 30.00 Smoking status: Former smoker Tobacco type: cigarettes Smoking end date: 06/29/20 Alcohol intake: never Substance use: never Lack of Transportation: No Lack of Food: Never True Current Housing: I Have Housing Concerned About Future Housing: No Difficulty Paying Gas/Electric Bills: No Difficulty Paying for Meds: No Currently Unemployed: No Education: Associate Degree Difficulty w/ Childcare or Family Care: No Spiritual care concerns: No Meds Home Medications and Allergies Home Medications ?Medication ?Instructions ?Recorded ?Confirmed ?Type alprazolam 1 mg tablet 1 mg PO BID PRN anxiety 07/05/25 07/16/25 History bupropion HCl 200 mg tablet,12 hr 200 mg PO Q12H 07/05/25 07/16/25 History sustained-release levothyroxine 50 mcg tablet 50 mcg PO DAILY 07/05/25 07/16/25 History mupirocin 2 % topical ointment 1 applic topical TID 07/05/25 07/16/25 History ondansetron 4 mg disintegrating 4 mg PO TID PRN nausea and vomiting 07/05/25 07/16/25 History tablet pantoprazole 40 mg tablet,delayed 40 mg PO Q12H 07/05/25 07/16/25 History release quetiapine 100 mg tablet 200 mg PO HS 07/05/25 07/16/25 History sertraline 50 mg tablet 50 mg PO DAILY 07/05/25 07/16/25 History methocarbamol 500 mg tablet 500 mg PO DAILY PRN spasms #30 tabs 07/12/25 07/16/25 Rx furosemide 80 mg tablet 80 mg PO DAILY #30 tabs 07/13/25 07/16/25 Rx lactulose 10 gram/15 mL oral 30 ml PO TID 30 days #2,700 mL 07/13/25 07/16/25 Rx solution (Constulose) spironolactone 50 mg tablet 200 mg (4 x 50 mg) PO QAM #120 tabs 07/13/25 07/16/25 Rx (Aldactone) Allergies Allergy/AdvReac Type Severity Reaction Status Date / Time adhesive tape AdvReac Intermediate blister Verified 07/16/25 18:14 Vital Signs Vital Signs - 24 hr 07/16/25 11:16 07/16/25 11:31 07/16/25 11:46 Temperature Pulse Rate 82 77 84 Respiratory Rate 18 19 25 H Blood Pressure 126/70 108/58 L 103/56 L Pulse Oximetry 95 96 95 Oxygen Delivery Oxygen Flow Rate 07/16/25 12:11 07/16/25 13:00 07/16/25 13:11 Temperature Pulse Rate 77 88 Respiratory Rate 13 16 Blood Pressure 114/52 L 112/58 L Pulse Oximetry 93 93 96 Oxygen Delivery Nasal Cannula Oxygen Flow Rate 2 07/16/25 14:01 07/16/25 15:01 07/16/25 16:00 Temperature Pulse Rate 84 79 73 Respiratory Rate 22 H 17 16 Blood Pressure 110/81 102/65 105/58 L Pulse Oximetry 97 95 92 Oxygen Delivery Oxygen Flow Rate 07/16/25 17:02 07/16/25 18:58 07/16/25 19:53 Temperature 36.4 C Pulse Rate 71 72 Respiratory Rate 22 H 20 Blood Pressure 105/59 L 117/72 Pulse Oximetry 94 96 Oxygen Delivery Room Air Oxygen Flow Rate 07/16/25 20:00 07/16/25 20:00 07/16/25 21:41 Temperature Pulse Rate 72 Respiratory Rate Blood Pressure Pulse Oximetry 91 Oxygen Delivery Room Air Room Air Oxygen Flow Rate 07/16/25 22:00 07/16/25 23:15 07/17/25 00:00 Temperature 36.6 C Pulse Rate 79 82 Respiratory Rate 19 Blood Pressure 106/52 L Pulse Oximetry 96 Oxygen Delivery Room Air Oxygen Flow Rate 07/17/25 00:00 07/17/25 02:00 07/17/25 03:34 Temperature 36.5 C Pulse Rate 82 77 79 Respiratory Rate 18 Blood Pressure 121/75 Pulse Oximetry 95 Oxygen Delivery Oxygen Flow Rate 07/17/25 04:00 07/17/25 04:00 07/17/25 06:00 Temperature Pulse Rate 82 78 Respiratory Rate Blood Pressure Pulse Oximetry Oxygen Delivery Room Air Oxygen Flow Rate 07/17/25 07:56 Temperature 36.9 C Pulse Rate 80 Respiratory Rate 16 Blood Pressure 134/79 Pulse Oximetry 93 Oxygen Delivery Oxygen Flow Rate Results Labs 07/17/25 03:55 07/17/25 03:55 Labs: Short CBC 07/17/25 Range/Units 03:55 WBC 5.5 (4.5-10.0) K/mm3 Hgb 11.0 L (12.0-15.0) g/dL Hct 34.1 L (37.0-47.0) % Plt Count 85 L (150-375) k/mm3 BMP 07/17/25 03:55 Sodium 131 L Potassium 3.2 L Chloride 99 Carbon Dioxide 27 BUN 10 Creatinine 0.83 Glucose 82 Calcium 8.6 Liver Function 07/17/25 Range/Units 03:55 Total Bilirubin 1.8 H (0.2-1.3) mg/dL AST 66 H (14-36) U/L ALT 31 (6-35) U/L Alkaline Phosphatase 109 (38-126) U/L Albumin 3.0 L (3.5-5.1) g/dL
--- NOTE | 2025-07-17 12:40 | P.PNIM_ITS ---
Progress Note: A&P Assessment and Plan (1) Cirrhosis of liver: Qualifiers: Hepatic cirrhosis type: other cirrhosis Qualified Code(s): K74.69 - Other cirrhosis of liver Code(s): K74.60 - Unspecified cirrhosis of liver Status: Acute (2) Portal hypertension: Code(s): K76.6 - Portal hypertension Status: Acute (3) Hepatitis C: Code(s): B19.20 - Unspecified viral hepatitis C without hepatic coma Status: Acute (4) Abdominal ascites: Qualifiers: Ascites type: other type Qualified Code(s): R18.8 - Other ascites Code(s): R18.8 - Other ascites Status: Acute (5) Back pain: Code(s): M54.9 - Dorsalgia, unspecified Status: Acute (6) Closed wedge compression fracture of T2 vertebra: Code(s): S22.020A - Wedge compression fracture of second thoracic vertebra, initial encounter for closed fracture Status: Acute (7) Stable burst fracture of T5 vertebra: Code(s): S22.051A - Stable burst fracture of T5-T6 vertebra, initial encounter for closed fracture Status: Acute (8) Seizure: Code(s): R56.9 - Unspecified convulsions Status: Acute Plan This is a 55-year-old female who presents to the ED for evaluation of back pain. Patient stated that she set up in the morning and started to hurt in her upper back. Patient also suspected that she had a seizure. 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 She recently moved back from [place]. She has history of cirrhosis and was recently admitted for the same. While in the ER she had another generalized tonic-clonic seizure. She received 2.5 mg of IV Versed for the seizure and was also loaded with IV Keppra 1 g. Her vitals have been stable Laboratory studies showed WBC of 8.4 hemoglobin of 12.6 hematocrit of 38.5 platelet count a 128. Chem panel showed sodium of 132 potassium 3.5 chloride 99 bicarbonate 23 BUN 12 creatinine 0.88 blood glucose of 124. LFTs with total bilirubin of 1.9 AST 71 ALT 38 alk phosphatase 119 ammonia level was normal at 14. TSH was normal at 4.6 to ethyl alcohol level was less than 10. CT head was negative CT thoracic spine for the back pain was performed which showed compression fracture of T12 and burst fracture of T5. Neurosurgery was consulted and suggested thoracic brace urology has also been consulted from the ER. She is admitted in this setting for further treatment. Back pain post fall Compression fracture T2 burst fracture of T5 no neuro deficits noted neurosurgery consulted Recurrent seizure tonic clonic in nature witnessed in the ER. Loaded with Keppra. She has been out of her benzodiazepine that she chronically was taking however since he moved from [place] she has not been able to feel it. She has been off alprazolam since 11/30 days now. She has been loaded with IV Keppra. Neurology was reconsulted. CT head scan was negative. Continue Keppra will also resume her alprazolam. Will get MRI brain Hepatic encephalopathy recently admitted for the same with ammonia level of 48. Currently ammonia level is normal. Continue On lactulose Cirrhosis of liver with ascites and portal hypertension Ascites requiring recurrent paracentesis History of upper esophageal bleed status post banding in [place] 12/2024 DVT prophylaxis SCDs Thrombocytopenia due to cirrhosis of liver Anxiety disorder Hepatitis C Code status full code Subjective Date/time seen: 07/17/25 12:40 Interval history: No overnight events. Patient more alert and oriented today. Back pain is still bothering her. No further seizures Review of Systems Review of Systems: All systems reviewed & are unremarkable except as noted in HPI and below Exam Narrative: APPEARANCE: Well appearing, no pain, no distress, well-nourished. HEAD: normocephalic, atraumatic. EYES: PERRLA/EOMI, conjunctivae clear. NOSE: Normal no drainage NECK: Supple. No adenopathy, no masses. RESPIRATORY: Airway patent, respirations nonlabored. Clear to auscultation bilaterally, no rales, rhonchi, wheezing. CARDIOVASCULAR: Regular rate and rhythm without murmurs rubs or gallops. ABDOMINAL: Soft, nontender, nondistended, normal bowel sounds NEURO: Alert. Cranial nerves II through XII intact. SKIN: Warm, dry. Normal Color Objective Data Vital Signs Vital Signs: Vital Signs - 24 hr 07/16/25 13:00 07/16/25 13:11 07/16/25 14:01 Temperature Pulse Rate 88 84 Respiratory Rate 16 22 H Blood Pressure 112/58 L 110/81 Pulse Oximetry 93 96 97 Oxygen Delivery Nasal Cannula Oxygen Flow Rate 2 07/16/25 15:01 07/16/25 16:00 07/16/25 17:02 Temperature Pulse Rate 79 73 71 Respiratory Rate 17 16 22 H Blood Pressure 102/65 105/58 L 105/59 L Pulse Oximetry 95 92 94 Oxygen Delivery Oxygen Flow Rate 07/16/25 18:58 07/16/25 19:53 07/16/25 20:00 Temperature 97.6 F Pulse Rate 72 72 Respiratory Rate 20 Blood Pressure 117/72 Pulse Oximetry 96 Oxygen Delivery Room Air Oxygen Flow Rate 07/16/25 20:00 07/16/25 21:41 07/16/25 22:00 Temperature Pulse Rate 79 Respiratory Rate Blood Pressure Pulse Oximetry 91 Oxygen Delivery Room Air Room Air Oxygen Flow Rate 07/16/25 23:15 07/17/25 00:00 07/17/25 00:00 Temperature 97.8 F Pulse Rate 82 82 Respiratory Rate 19 Blood Pressure 106/52 L Pulse Oximetry 96 Oxygen Delivery Room Air Oxygen Flow Rate 07/17/25 02:00 07/17/25 03:34 07/17/25 04:00 Temperature 97.7 F Pulse Rate 77 79 Respiratory Rate 18 Blood Pressure 121/75 Pulse Oximetry 95 Oxygen Delivery Room Air Oxygen Flow Rate 07/17/25 04:00 07/17/25 06:00 07/17/25 07:56 Temperature 98.4 F Pulse Rate 82 78 80 Respiratory Rate 16 Blood Pressure 134/79 Pulse Oximetry 93 Oxygen Delivery Oxygen Flow Rate 07/17/25 08:00 07/17/25 10:00 07/17/25 11:48 Temperature 97.9 F Pulse Rate 83 80 75 Respiratory Rate 12 Blood Pressure 113/56 L Pulse Oximetry 94 Oxygen Delivery Oxygen Flow Rate 07/17/25 12:00 Temperature Pulse Rate Respiratory Rate Blood Pressure Pulse Oximetry Oxygen Delivery Room Air Oxygen Flow Rate Intake/Output Intake/Output: Intake & Output 07/14/25 07/15/25 07/16/25 07/17/25 23:59 23:59 23:59 23:59 Intake Total 1000 720 Output Total 25 300 Balance 975 420 Meds/Results Medications: Active Medications Generic Name Dose Route Start Last Admin Trade Name Freq PRN Reason Stop Dose Admin Hydrocodone Bitart/Acetaminophen 1 tab 07/16/25 22:50 07/17/25 04:17 Hydrocodone/Acetaminophen (*Crx) 5-325 Mg Tablet PO 1 tab Q4H PRN Administration Pain Rated 4-6 Alprazolam 1 mg 07/16/25 11:38 07/17/25 09:07 Alprazolam (*Crx) 0.5 Mg Tablet PO 1 mg BID PRN Administration Anxiety Alprazolam 1 mg 07/16/25 14:44 Alprazolam (*Crx) 0.5 Mg Tablet PO BID PRN Anxiety Bupropion HCl 200 mg 07/16/25 21:00 07/17/25 09:04 Bupropion Hcl Sr (12hr) 100 Mg Tabcr PO 200 mg Q12HR LEONID Administration Cyclobenzaprine HCl 10 mg 07/16/25 22:50 07/17/25 04:18 Cyclobenzaprine Hcl 10 Mg Tablet PO 10 mg Q8H PRN Administration Muscle Spasm Furosemide 80 mg 07/17/25 09:00 07/17/25 09:03 Furosemide 80 Mg Tablet PO 80 mg DAILY LEONID Administration Hydromorphone HCl 0.5 mg 07/16/25 08:42 07/16/25 20:45 Hydromorphone Hcl Inj (*Crx) 1 Mg/Ml Syr IV PUSH 0.5 mg Q4H PRN Administration Pain Rated 7-10 Ketorolac Tromethamine 15 mg 07/16/25 23:00 07/17/25 11:50 Ketorolac 15 Mg/Ml Vial (*Bkc) IV PUSH 07/21/25 17:01 Not Given Q6H LEONID Lactulose 20 gm 07/16/25 17:00 07/17/25 09:03 Lactulose 20 Gm/30 Ml Udc PO 20 gm TID LEONID Administration Levothyroxine Sodium 50 mcg 07/17/25 06:30 07/17/25 06:40 Levothyroxine Sodium 50 Mcg Tablet PO 50 mcg DAILY@0630 LEONID Administration Methocarbamol 500 mg 07/16/25 14:44 Methocarbamol 500 Mg Tablet PO DAILY PRN Spasms Mupirocin 1 applic 07/16/25 17:00 07/17/25 09:35 Mupirocin 2% Oint 22 Gm Tube TOPICAL 1 applic TID LEONID Administration Ondansetron HCl 4 mg 07/16/25 11:38 07/16/25 12:01 Ondansetron Inj 4 Mg/2 Ml Vial IV PUSH 4 mg Q4H PRN Administration Nausea And Vomiting Ondansetron HCl 4 mg 07/16/25 14:44 Ondansetron Hcl Odt 4 Mg Tablet PO TID PRN Nausea And Vomiting Pantoprazole Sodium 40 mg 07/16/25 21:00 07/17/25 09:03 Pantoprazole 40 Mg Tablet PO 40 mg Q12HR LEONID Administration Quetiapine Fumarate 200 mg 07/16/25 21:00 07/16/25 20:44 Quetiapine Fumarate 100 Mg Tablet PO 200 mg HS LEONID Administration Sertraline HCl 50 mg 07/17/25 09:00 07/17/25 09:03 Sertraline Hcl 50 Mg Tablet PO 50 mg DAILY LEONID Administration Spironolactone 200 mg 07/17/25 09:00 07/17/25 09:03 Spironolactone 50 Mg Tablet PO 200 mg QAM LEONID Administration Radiology Results: ITS Impressions Chest X-Ray 07/16/25 06:49 IMPRESSION: 1. No acute cardiopulmonary findings given portable technique. Head CT 07/16/25 06:59 IMPRESSION: 1. No acute intracranial findings. Cervical Spine CT 07/16/25 07:43 IMPRESSION: 1. Mild cervical spondylosis. ADDENDUM: 07/16/25 0756 There is an acute compression fracture of T2 with less than 1/5 loss of height. Thoracic Spine CT 07/16/25 07:47 IMPRESSION: 1. Acute compression fracture of T2. Acute burst fracture of T5. 2. Moderate thoracic spondylosis. 3. Thoracic dextroscoliosis. Labs Labs: Laboratory Results - last 24 hr 07/17/25 03:55 WBC 5.5 RBC 3.61 L Hgb 11.0 L Hct 34.1 L MCV 94.5 MCH 30.5 MCHC 32.3 RDW 15.4 H Plt Count 85 L MPV 9.5 Immature Gran % (Auto) 0.4 Neut % (Auto) 59.1 Lymph % (Auto) 22.0 [place] % (Auto) 15.2 H Eos % (Auto) 2.4 Baso % (Auto) 0.9 Lymph # (Auto) 1.21 [place] # (Auto) 0.8 H Eos # (Auto) 0.1 Baso # (Auto) 0.1 Abs Immat Gran (auto) 0.02 Absolute Neuts (auto) 3.3 Absolute Nucleated RBC 0.000 Band Neutrophils % Not Reportable Nucleated RBC % 0.0 Platelet Estimate Decreased % Immature Plt Fraction 1.4 Anisocytosis 1+ Schistocytes None seen Sodium 131 L Potassium 3.2 L Chloride 99 Carbon Dioxide 27 Anion Gap 5 BUN 10 Creatinine 0.83 Estim Creat Clear Calc 87 Estimated GFR > 60 Glucose 82 Calcium 8.6 Magnesium 2.1 Total Bilirubin 1.8 H AST 66 H ALT 31 Alkaline Phosphatase 109 Total Protein 6.8 Albumin 3.0 L
--- NOTE | 2025-07-17 18:32 | PC.NURSE ---
This patient, Jil Esteves, was transferred to [facility] on 07/17/25 at 1833. Personal belongings sent with patient. Report given to RN. Appropriate documentation sent with patient.
[2025-07-18 03:45] VITALS: BP 119/64; PULSE 75; RESP 18; TEMP 36.9; O2SAT 93
[2025-07-18] MEDS: KETOROLAC 15 MG/ML VIAL (*BKC) IV PUSH ×4 (05:35→22:59)
[2025-07-18] MEDS: LEVOTHYROXINE SODIUM 50 MCG TABLET PO (05:36)
[2025-07-18] MEDS: LACTULOSE 20 GM/30 ML UDC PO ×3 (08:31→18:33)
[2025-07-18] MEDS: PANTOPRAZOLE 40 MG TABLET PO ×2 (08:31→21:16)
[2025-07-18] MEDS: buPROPion HCL SR (12HR) 100 MG TABCR 200 MG PO ×2 (08:31→21:16)
[2025-07-18] MEDS: FUROSEMIDE 80 MG TABLET PO (08:31)
[2025-07-18] MEDS: SERTRALINE HCL 50 MG TABLET PO (08:32)
[2025-07-18] MEDS: SPIRONOLACTONE 50 MG TABLET 200 MG PO (08:32)
[2025-07-18] MEDS: MUPIROCIN 2% OINT 22 GM TUBE 1 APPLIC TOPICAL ×3 (08:33→18:33)
[2025-07-18] MEDS: HYDROcodone/acetaminophen (*CRX) 5-325 MG TABLET 1 TAB PO ×3 (08:33→20:15)
[2025-07-18 08:37] VITALS: BP 106/55; PULSE 71; TEMP 36.5; O2SAT 96
[2025-07-18 09:59] LABS: Hematocrit 30.6 % (37.0-47.0); Hemoglobin 9.7 g/dL (12.0-15.0); Immature Granulocyte Percent A 0.2 % (0-0.5); Immature Platelet Fraction Pct 1.4 % (0.9-11.2); Lymphocytes Absolute Auto 1.05 K/mm3 (0.9-3.2); Mean Corpuscular HGB Conc 31.7 g/dl (32-36); Mean Corpuscular Hemoglobin 30.1 pg (26-34); Mean Corpuscular Volume 95.0 fl (80-100); Nucleated Red Blood Cells Absolute Auto 0.000 K/mm3 (0.0-0.012); Nucleated Red Blood Cells Perc 0.0 % (0.0-0.2); Platelet Count Result 80 k/mm3 (150-375); Red Blood Count 3.22 M/mm3 (4.2-5.4); White Blood Count 4.6 K/mm3 (4.5-10.0)
[2025-07-18 10:27] LABS: Alanine Aminotransferase 30 U/L (6-35); Albumin Level 2.6 g/dL (3.5-5.1); Alkaline Phosphatase 81 U/L (38-126); Anion Gap 6 mmol/L (4-12); Aspartate Amino Transferase 55 U/L (14-36); Bilirubin,Total 1.0 mg/dL (0.2-1.3); Blood Urea Nitrogen 13 mg/dL (7-17); Calcium 8.2 mg/dL (8.4-10.2); Carbon Dioxide 26 mmol/L (22-30); Chloride 102 mmol/L (98-107); Estimated CRCL calculation 71 ml/min; Estimated Glomerular Filt Rate 56; Glucose 136 mg/dL (65-110); Magnesium 1.9 mg/dL (1.6-2.3); Potassium 3.1 mmol/L (3.4-5.0); Sodium 134 mmol/L (137-145); Total Protein 5.9 g/dL (6.3-8.2)
[2025-07-18 12:00] VITALS: BP 120/67; PULSE 72; RESP 19; TEMP 36.4; O2SAT 97
[2025-07-18] MEDS: POTASSIUM CHLORIDE 20 MEQ ER TABLET 40 MEQ PO (13:03)
--- NOTE | 2025-07-18 14:59 | WPDNEUROSGCN ---
Assessment and Plan Assessment and plan (1) Stable burst fracture of T5 vertebra: Code(s): S22.051A - Stable burst fracture of T5-T6 vertebra, initial encounter for closed fracture Status: Acute Assessment and Plan: - Stable fractures - No surgical intervention - Recommend TLSO brace. I will call brace company - F/u in 8 weeks with xrays in clinic Discussed with Dr. Ross, who is in agreement Consult date: 07/18/25 HPI: Jil Esteves is a 55 year old female who presented to the Emergency Department due to seizures and back pain. The patient had a seizure while in the ED. She denies any previous spine injuries. Workup demonstrated T2 and T5 fractures for which Neurosurgery is consulted. Dr. Ross recommended a TLSO brace over the phone. The patient has received her TLSO brace and has been wearing it at all times. She does feel like it helps with the discomfort. She denies any lower extremity pain, numbness, or weakness and has had no saddle anesthesia or loss of bowel or bladder control. Currently, the patient is resting comfortably in bed. Her daughter is at the bedside. CT thoracic spine showed chronic T11 and T12 compression fractures with minimal loss of height. There are acute appearing fractures involving T2 and T5. The T2 compression fracture has 20% MERVIN with no canal compromise. The T5 Burst fracture is a stable fracture with 20-30% MERVIN with very minimal canal compromise. Very mild central canal stenosis. [facility] Family History Family History Father Lung cancer Social History Social History Smoking packs per day: 1 Smoking cigarettes per day: 20.0 Years smoked: 30 Smoking pack-years: 30.00 Smoking status: Former smoker Tobacco type: cigarettes Smoking end date: 06/29/20 Alcohol intake: never Substance use: never Lack of Transportation: No Lack of Food: Never True Current Housing: I Have Housing Concerned About Future Housing: No Difficulty Paying Gas/Electric Bills: No Difficulty Paying for Meds: No Currently Unemployed: No Education: Associate Degree Difficulty w/ Childcare or Family Care: No Spiritual care concerns: No Meds Home Medications and Allergies Home Medications ?Medication ?Instructions ?Recorded ?Confirmed ?Type alprazolam 1 mg tablet 1 mg PO BID PRN anxiety 07/05/25 07/16/25 History bupropion HCl 200 mg tablet,12 hr 200 mg PO Q12H 07/05/25 07/16/25 History sustained-release levothyroxine 50 mcg tablet 50 mcg PO DAILY 07/05/25 07/16/25 History mupirocin 2 % topical ointment 1 applic topical TID 07/05/25 07/16/25 History ondansetron 4 mg disintegrating 4 mg PO TID PRN nausea and vomiting 07/05/25 07/16/25 History tablet pantoprazole 40 mg tablet,delayed 40 mg PO Q12H 07/05/25 07/16/25 History release quetiapine 100 mg tablet 200 mg PO HS 07/05/25 07/16/25 History sertraline 50 mg tablet 50 mg PO DAILY 07/05/25 07/16/25 History methocarbamol 500 mg tablet 500 mg PO DAILY PRN spasms #30 tabs 07/12/25 07/16/25 Rx furosemide 80 mg tablet 80 mg PO DAILY #30 tabs 07/13/25 07/16/25 Rx lactulose 10 gram/15 mL oral 30 ml PO TID 30 days #2,700 mL 07/13/25 07/16/25 Rx solution (Constulose) spironolactone 50 mg tablet 200 mg (4 x 50 mg) PO QAM #120 tabs 07/13/25 07/16/25 Rx (Aldactone) Allergies Allergy/AdvReac Type Severity Reaction Status Date / Time adhesive tape AdvReac Intermediate blister Verified 07/16/25 18:14 Vital Signs Vital Signs - 24 hr 07/17/25 16:00 07/17/25 18:58 07/17/25 20:00 Temperature 98.1 F 97.8 F 98.5 F Pulse Rate 71 67 76 Respiratory Rate 16 16 18 Blood Pressure 93/51 L 90/47 L 113/60 Pulse Oximetry 96 93 92 Oxygen Delivery 07/17/25 20:00 07/17/25 23:35 07/18/25 03:45 Temperature 98.5 F 98.5 F Pulse Rate 76 75 Respiratory Rate 18 18 Blood Pressure 112/55 L 119/64 Pulse Oximetry 93 93 Oxygen Delivery Room Air 07/18/25 08:23 07/18/25 08:37 07/18/25 12:00 Temperature 97.7 F 97.6 F Pulse Rate 71 72 Respiratory Rate 19 Blood Pressure 106/55 L 120/67 Pulse Oximetry 96 97 Oxygen Delivery Room Air Exam Narrative: A&O x4. Calm, cooperative, no acute distress. Cranial nerves intact. EOM. Facial movements symmetric. No drift. Symmetric shoulder shrug. Speech is clear and fluent. Gait was not tested. Motor strength 5/5 throughout bilateral lower extremities. Mild tenderness to palpation over T5. Sensation to light touch is intact. Results Labs 07/18/25 09:52 07/18/25 09:52 Labs: Short CBC 07/18/25 Range/Units 09:52 WBC 4.6 (4.5-10.0) K/mm3 Hgb 9.7 L (12.0-15.0) g/dL Hct 30.6 L (37.0-47.0) % Plt Count 80 L (150-375) k/mm3 BMP 07/18/25 09:52 Sodium 134 L Potassium 3.1 L Chloride 102 Carbon Dioxide 26 BUN 13 Creatinine 1.02 H Glucose 136 H Calcium 8.2 L Liver Function 07/18/25 Range/Units 09:52 Total Bilirubin 1.0 (0.2-1.3) mg/dL AST 55 H (14-36) U/L ALT 30 (6-35) U/L Alkaline Phosphatase 81 (38-126) U/L Albumin 2.6 L (3.5-5.1) g/dL
--- NOTE | 2025-07-18 15:41 | PM.IMPN ---
Progress Note: A&P Assessment and Plan (1) Cirrhosis of liver: Qualifiers: Hepatic cirrhosis type: other cirrhosis Qualified Code(s): K74.69 - Other cirrhosis of liver Code(s): K74.60 - Unspecified cirrhosis of liver Status: Acute (2) Portal hypertension: Code(s): K76.6 - Portal hypertension Status: Acute (3) Hepatitis C: Code(s): B19.20 - Unspecified viral hepatitis C without hepatic coma Status: Acute (4) Abdominal ascites: Qualifiers: Ascites type: other type Qualified Code(s): R18.8 - Other ascites Code(s): R18.8 - Other ascites Status: Acute (5) Back pain: Code(s): M54.9 - Dorsalgia, unspecified Status: Acute (6) Closed wedge compression fracture of T2 vertebra: Code(s): S22.020A - Wedge compression fracture of second thoracic vertebra, initial encounter for closed fracture Status: Acute (7) Stable burst fracture of T5 vertebra: Code(s): S22.051A - Stable burst fracture of T5-T6 vertebra, initial encounter for closed fracture Status: Acute (8) Seizure: Code(s): R56.9 - Unspecified convulsions Status: Acute Plan This is a 55-year-old female who presents to the ED for evaluation of back pain. Patient stated that she set up in the morning and started to hurt in her upper back. Patient also suspected that she had a seizure. 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 She recently moved back from [place]. She has history of cirrhosis and was recently admitted for the same. While in the ER she had another generalized tonic-clonic seizure. She received 2.5 mg of IV Versed for the seizure and was also loaded with IV Keppra 1 g. Her vitals have been stable Laboratory studies showed WBC of 8.4 hemoglobin of 12.6 hematocrit of 38.5 platelet count a 128. Chem panel showed sodium of 132 potassium 3.5 chloride 99 bicarbonate 23 BUN 12 creatinine 0.88 blood glucose of 124. LFTs with total bilirubin of 1.9 AST 71 ALT 38 alk phosphatase 119 ammonia level was normal at 14. TSH was normal at 4.6 to ethyl alcohol level was less than 10. CT head was negative CT thoracic spine for the back pain was performed which showed compression fracture of T12 and burst fracture of T5. Neurosurgery was consulted and suggested thoracic brace urology has also been consulted from the ER. She is admitted in this setting for further treatment. Back pain post fall Compression fracture T2 burst fracture of T5 no neuro deficits noted neurosurgery consulted Recurrent seizure tonic clonic in nature witnessed in the ER. Loaded with Keppra. She has been out of her benzodiazepine that she chronically was taking however since he moved from [place] she has not been able to feel it. She has been off alprazolam since 11/30 days now. She has been loaded with IV Keppra. Neurology was reconsulted. CT head scan was negative. Continue Keppra will also resume her alprazolam. MRI brain pending Hepatic encephalopathy recently admitted for the same with ammonia level of 48. Currently ammonia level is normal. Continue On lactulose Cirrhosis of liver with ascites and portal hypertension Ascites requiring recurrent paracentesis History of upper esophageal bleed status post banding in [place] 12/2024 DVT prophylaxis SCDs Thrombocytopenia due to cirrhosis of liver Anxiety disorder Hepatitis C positive need to follow up with hepatology/Infectious Disease for treatment Code status full code Subjective Date/time seen: 07/18/25 15:41 Interval history: No overnight events. Currently flat to get an MRI done. Pain increases with activity. Was to work with therapy today. She is wearing her brace Review of Systems Review of Systems: All systems reviewed & are unremarkable except as noted in HPI and below Exam Narrative: APPEARANCE: Well appearing, no pain, no distress, well-nourished. HEAD: normocephalic, atraumatic. EYES: PERRLA/EOMI, conjunctivae clear. NOSE: Normal no drainage NECK: Supple. No adenopathy, no masses. RESPIRATORY: Airway patent, respirations nonlabored. Clear to auscultation bilaterally, no rales, rhonchi, wheezing. CARDIOVASCULAR: Regular rate and rhythm without murmurs rubs or gallops. ABDOMINAL: Soft, nontender, nondistended, normal bowel sounds NEURO: Alert. Cranial nerves II through XII intact. SKIN: Warm, dry. Normal Color Objective Data Vital Signs Vital Signs: Vital Signs - 24 hr 07/17/25 16:00 07/17/25 18:58 07/17/25 20:00 Temperature 98.1 F 97.8 F 98.5 F Pulse Rate 71 67 76 Respiratory Rate 16 16 18 Blood Pressure 93/51 L 90/47 L 113/60 Pulse Oximetry 96 93 92 Oxygen Delivery 07/17/25 20:00 07/17/25 23:35 07/18/25 03:45 Temperature 98.5 F 98.5 F Pulse Rate 76 75 Respiratory Rate 18 18 Blood Pressure 112/55 L 119/64 Pulse Oximetry 93 93 Oxygen Delivery Room Air 07/18/25 08:23 07/18/25 08:37 07/18/25 12:00 Temperature 97.7 F 97.6 F Pulse Rate 71 72 Respiratory Rate 19 Blood Pressure 106/55 L 120/67 Pulse Oximetry 96 97 Oxygen Delivery Room Air Intake/Output Intake/Output: Intake & Output 07/15/25 07/16/25 07/17/25 07/18/25 23:59 23:59 23:59 23:59 Intake Total 1000 1200 390 Output Total 25 900 Balance 975 300 390 Meds/Results Medications: Active Medications Generic Name Dose Route Start Last Admin Trade Name Freq PRN Reason Stop Dose Admin Hydrocodone Bitart/Acetaminophen 1 tab 07/16/25 22:50 07/18/25 13:04 Hydrocodone/Acetaminophen (*Crx) 5-325 Mg Tablet PO 1 tab Q4H PRN Administration Pain Rated 4-6 Alprazolam 1 mg 07/17/25 21:00 07/17/25 21:25 Alprazolam (*Crx) 0.5 Mg Tablet PO 1 mg HS LEONID Administration Alprazolam 1 mg 07/17/25 12:42 Alprazolam (*Crx) 0.5 Mg Tablet PO DAILY PRN Anxiety Bupropion HCl 200 mg 07/16/25 21:00 07/18/25 08:31 Bupropion Hcl Sr (12hr) 100 Mg Tabcr PO 200 mg Q12HR LEONID Administration Cyclobenzaprine HCl 10 mg 07/16/25 22:50 07/17/25 12:58 Cyclobenzaprine Hcl 10 Mg Tablet PO 10 mg Q8H PRN Administration Muscle Spasm Furosemide 80 mg 07/17/25 09:00 07/18/25 08:31 Furosemide 80 Mg Tablet PO 80 mg DAILY LEONID Administration Hydromorphone HCl 0.5 mg 07/16/25 08:42 07/16/25 20:45 Hydromorphone Hcl Inj (*Crx) 1 Mg/Ml Syr IV PUSH 0.5 mg Q4H PRN Administration Pain Rated 7-10 Ketorolac Tromethamine 15 mg 07/16/25 23:00 07/18/25 13:03 Ketorolac 15 Mg/Ml Vial (*Bkc) IV PUSH 07/21/25 17:01 15 mg Q6H LEONID Administration Lactulose 20 gm 07/16/25 17:00 07/18/25 13:02 Lactulose 20 Gm/30 Ml Udc PO 20 gm TID LEONID Administration Levetiracetam 500 mg 07/17/25 13:00 07/18/25 08:32 Levetiracetam 500 Mg Tablet PO 500 mg Q12HR LEONID Administration Levothyroxine Sodium 50 mcg 07/17/25 06:30 07/18/25 05:36 Levothyroxine Sodium 50 Mcg Tablet PO 50 mcg DAILY@0630 LEONID Administration Methocarbamol 500 mg 07/16/25 14:44 Methocarbamol 500 Mg Tablet PO DAILY PRN Spasms Mupirocin 1 applic 07/16/25 17:00 07/18/25 13:04 Mupirocin 2% Oint 22 Gm Tube TOPICAL 1 applic TID [facility] Administration Ondansetron HCl 4 mg 07/16/25 11:38 07/16/25 12:01 Ondansetron Inj 4 Mg/2 Ml Vial IV PUSH 4 mg Q4H PRN Administration Nausea And Vomiting Ondansetron HCl 4 mg 07/16/25 14:44 Ondansetron Hcl Odt 4 Mg Tablet PO TID PRN Nausea And Vomiting Pantoprazole Sodium 40 mg 07/16/25 21:00 07/18/25 08:31 Pantoprazole 40 Mg Tablet PO 40 mg Q12HR LEONID Administration Quetiapine Fumarate 200 mg 07/16/25 21:00 07/17/25 21:24 Quetiapine Fumarate 100 Mg Tablet PO 200 mg HS LEONID Administration Sertraline HCl 50 mg 07/17/25 09:00 07/18/25 08:32 Sertraline Hcl 50 Mg Tablet PO 50 mg DAILY LEONID Administration Spironolactone 200 mg 07/17/25 09:00 07/18/25 08:32 Spironolactone 50 Mg Tablet PO 200 mg QAM LEONID Administration Radiology Results: ITS Impressions Chest X-Ray 07/16/25 06:49 IMPRESSION: 1. No acute cardiopulmonary findings given portable technique. Head CT 07/16/25 06:59 IMPRESSION: 1. No acute intracranial findings. Cervical Spine CT 07/16/25 07:43 IMPRESSION: 1. Mild cervical spondylosis. ADDENDUM: 07/16/25 0756 There is an acute compression fracture of T2 with less than 1/5 loss of height. Thoracic Spine CT 07/16/25 07:47 IMPRESSION: 1. Acute compression fracture of T2. Acute burst fracture of T5. 2. Moderate thoracic spondylosis. 3. Thoracic dextroscoliosis. Labs Labs: Laboratory Results - last 24 hr 07/18/25 09:52 WBC 4.6 RBC 3.22 L Hgb 9.7 L Hct 30.6 L MCV 95.0 MCH 30.1 MCHC 31.7 L RDW 15.6 H Plt Count 80 L MPV 9.4 Immature Gran % (Auto) 0.2 Neut % (Auto) 58.3 Lymph % (Auto) 22.8 [place] % (Auto) 15.2 H Eos % (Auto) 2.8 Baso % (Auto) 0.7 Lymph # (Auto) 1.05 [place] # (Auto) 0.7 H Eos # (Auto) 0.1 Baso # (Auto) 0.0 Abs Immat Gran (auto) 0.01 Absolute Neuts (auto) 2.7 Absolute Nucleated RBC 0.000 Nucleated RBC % 0.0 % Immature Plt Fraction 1.4 Sodium 134 L Potassium 3.1 L Chloride 102 Carbon Dioxide 26 Anion Gap 6 BUN 13 Creatinine 1.02 H Estim Creat Clear Calc 71 Estimated GFR 56 L Glucose 136 H Calcium 8.2 L Magnesium 1.9 Total Bilirubin 1.0 AST 55 H ALT 30 Alkaline Phosphatase 81 Total Protein 5.9 L Albumin 2.6 L
[2025-07-18] MEDS: ALPRAZolam (*CRX) 0.5 MG TABLET 1 MG PO (21:16)
[2025-07-19] VITALS: BP 94/38; PULSE 63; RESP 18; TEMP 36.4; O2SAT 94
[2025-07-19 05:20] LABS: Hematocrit 31.9 % (37.0-47.0); Hemoglobin 10.3 g/dL (12.0-15.0); Immature Granulocyte Percent A 0.4 % (0-0.5); Immature Platelet Fraction Pct 1.4 % (0.9-11.2); Lymphocytes Absolute Auto 1.06 K/mm3 (0.9-3.2); Mean Corpuscular HGB Conc 32.3 g/dl (32-36); Mean Corpuscular Hemoglobin 30.3 pg (26-34); Mean Corpuscular Volume 93.8 fl (80-100); Nucleated Red Blood Cells Absolute Auto 0.000 K/mm3 (0.0-0.012); Nucleated Red Blood Cells Perc 0.0 % (0.0-0.2); Platelet Count Result 93 k/mm3 (150-375); Red Blood Count 3.40 M/mm3 (4.2-5.4); White Blood Count 4.6 K/mm3 (4.5-10.0)
[2025-07-19 05:34] LABS: Alanine Aminotransferase 28 U/L (6-35); Albumin Level 2.6 g/dL (3.5-5.1); Alkaline Phosphatase 94 U/L (38-126); Anion Gap 6 mmol/L (4-12); Aspartate Amino Transferase 55 U/L (14-36); Bilirubin,Total 1.0 mg/dL (0.2-1.3); Blood Urea Nitrogen 12 mg/dL (7-17); Calcium 8.0 mg/dL (8.4-10.2); Carbon Dioxide 26 mmol/L (22-30); Chloride 102 mmol/L (98-107); Estimated CRCL calculation 65 ml/min; Estimated Glomerular Filt Rate 51; Glucose 85 mg/dL (65-110); Magnesium 1.7 mg/dL (1.6-2.3); Potassium 3.3 mmol/L (3.4-5.0); Sodium 134 mmol/L (137-145); Total Protein 5.9 g/dL (6.3-8.2)
[2025-07-19] MEDS: KETOROLAC 15 MG/ML VIAL (*BKC) IV PUSH ×2 (05:39→11:19)
[2025-07-19] MEDS: LEVOTHYROXINE SODIUM 50 MCG TABLET PO (05:39)
[2025-07-19 06:15] VITALS: BP 95/37; PULSE 74; RESP 18; TEMP 36.6; O2SAT 93
[2025-07-19] MEDS: HYDROcodone/acetaminophen (*CRX) 5-325 MG TABLET 1 TAB PO (08:26)
[2025-07-19] MEDS: LACTULOSE 20 GM/30 ML UDC PO (08:28)
[2025-07-19] MEDS: FUROSEMIDE 80 MG TABLET PO (08:28)
[2025-07-19] MEDS: buPROPion HCL SR (12HR) 100 MG TABCR 200 MG PO (08:28)
[2025-07-19] MEDS: PANTOPRAZOLE 40 MG TABLET PO (08:29)
[2025-07-19] MEDS: MUPIROCIN 2% OINT 22 GM TUBE 1 APPLIC TOPICAL (08:29)
[2025-07-19] MEDS: SERTRALINE HCL 50 MG TABLET PO (08:29)
[2025-07-19] MEDS: SPIRONOLACTONE 50 MG TABLET 200 MG PO (08:29)
[2025-07-19] MEDS: POTASSIUM CHLORIDE 20 MEQ ER TABLET 40 MEQ PO (08:35)
--- NOTE | 2025-07-19 12:53 | PCOTNOTE ---
Patient refused treatment this session. Patient reports she is tired and just wants to rest. Patient stated she is 7/10 pain and does not want anything else. Patient had all she needed prior to me leaving the room.
--- NOTE | 2025-07-19 13:53 | P.PNIM_ITS ---
Progress Note: A&P Assessment and Plan (1) Cirrhosis of liver: Qualifiers: Hepatic cirrhosis type: other cirrhosis Qualified Code(s): K74.69 - Other cirrhosis of liver Code(s): K74.60 - Unspecified cirrhosis of liver Status: Acute (2) Portal hypertension: Code(s): K76.6 - Portal hypertension Status: Acute (3) Hepatitis C: Code(s): B19.20 - Unspecified viral hepatitis C without hepatic coma Status: Acute (4) Abdominal ascites: Qualifiers: Ascites type: other type Qualified Code(s): R18.8 - Other ascites Code(s): R18.8 - Other ascites Status: Acute (5) Back pain: Code(s): M54.9 - Dorsalgia, unspecified Status: Acute (6) Closed wedge compression fracture of T2 vertebra: Code(s): S22.020A - Wedge compression fracture of second thoracic vertebra, initial encounter for closed fracture Status: Acute (7) Stable burst fracture of T5 vertebra: Code(s): S22.051A - Stable burst fracture of T5-T6 vertebra, initial encounter for closed fracture Status: Acute (8) Seizure: Code(s): R56.9 - Unspecified convulsions Status: Acute Plan This is a 55-year-old female who presents to the ED for evaluation of back pain. Patient stated that she set up in the morning and started to hurt in her upper back. Patient also suspected that she had a seizure. 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 She recently moved back from [place]. She has history of cirrhosis and was recently admitted for the same. While in the ER she had another generalized tonic-clonic seizure. She received 2.5 mg of IV Versed for the seizure and was also loaded with IV Keppra 1 g. Her vitals have been stable Laboratory studies showed WBC of 8.4 hemoglobin of 12.6 hematocrit of 38.5 platelet count a 128. Chem panel showed sodium of 132 potassium 3.5 chloride 99 bicarbonate 23 BUN 12 creatinine 0.88 blood glucose of 124. LFTs with total bilirubin of 1.9 AST 71 ALT 38 alk phosphatase 119 ammonia level was normal at 14. TSH was normal at 4.6 to ethyl alcohol level was less than 10. CT head was negative CT thoracic spine for the back pain was performed which showed compression fracture of T12 and burst fracture of T5. Neurosurgery was consulted and suggested thoracic brace urology has also been consulted from the ER. She is admitted in this setting for further treatment. # Back pain post fall # Compression fracture T2 burst fracture of T5 no neuro deficits noted neurosurgery consulted # Recurrent seizure tonic clonic in nature witnessed in the ER. Loaded with Keppra. She has been out of her benzodiazepine that she chronically was taking however since he moved from [place] she has not been able to feel it. She has been off alprazolam since 11/30 days now. She has been loaded with IV Keppra. Neurology was reconsulted. CT head scan was negative. Continue Keppra will also resume her alprazolam. MRI brain refused by the patient #Hepatic encephalopathy recently admitted for the same with ammonia level of 48. Currently ammonia level is normal. Continue On lactulose # Cirrhosis of liver with ascites and portal hypertension # Ascites requiring recurrent paracentesis # History of upper esophageal bleed status post banding in [place] 12/2024 # DVT prophylaxis SCDs # Thrombocytopenia due to cirrhosis of liver # Anxiety disorder # Hepatitis C positive need to follow up with hepatology/Infectious Disease for treatment # Code status full code Subjective Date/time seen: 07/19/25 13:53 Interval history: No overnight events. She refuses to get her MRI done. Back is still sore. Worked with therapy yesterday Review of Systems Review of Systems: All systems reviewed & are unremarkable except as noted in HPI and below Exam Narrative: APPEARANCE: Well appearing, no pain, no distress, well-nourished. HEAD: normocephalic, atraumatic. EYES: PERRLA/EOMI, conjunctivae clear. NOSE: Normal no drainage NECK: Supple. No adenopathy, no masses. RESPIRATORY: Airway patent, respirations nonlabored. Clear to auscultation bilaterally, no rales, rhonchi, wheezing. CARDIOVASCULAR: Regular rate and rhythm without murmurs rubs or gallops. ABDOMINAL: Soft, nontender, nondistended, normal bowel sounds NEURO: Alert. Cranial nerves II through XII intact. SKIN: Warm, dry. Normal Color Objective Data Vital Signs Vital Signs: Vital Signs - 24 hr 07/18/25 20:00 07/19/25 00:00 07/19/25 06:15 Temperature 97.6 F 97.9 F Pulse Rate 63 74 Respiratory Rate 18 18 Blood Pressure 94/38 L 95/37 L Pulse Oximetry 94 93 Oxygen Delivery Room Air 07/19/25 08:00 Temperature Pulse Rate Respiratory Rate Blood Pressure Pulse Oximetry Oxygen Delivery Room Air Intake/Output Intake/Output: Intake & Output 07/16/25 07/17/25 07/18/25 07/19/25 23:59 23:59 23:59 23:59 Intake Total 1000 1200 940 480 Output Total 25 900 Balance 975 300 940 480 Meds/Results Medications: Active Medications Generic Name Dose Route Start Last Admin Trade Name Freq PRN Reason Stop Dose Admin Hydrocodone Bitart/Acetaminophen 1 tab 07/16/25 22:50 07/19/25 08:26 Hydrocodone/Acetaminophen (*Crx) 5-325 Mg Tablet PO 1 tab Q4H PRN Administration Pain Rated 4-6 Alprazolam 1 mg 07/17/25 21:00 07/18/25 21:16 Alprazolam (*Crx) 0.5 Mg Tablet PO 1 mg HS LEONID Administration Alprazolam 1 mg 07/17/25 12:42 Alprazolam (*Crx) 0.5 Mg Tablet PO DAILY PRN Anxiety Bupropion HCl 200 mg 07/16/25 21:00 07/19/25 08:28 Bupropion Hcl Sr (12hr) 100 Mg Tabcr PO 200 mg Q12HR LEONID Administration Cyclobenzaprine HCl 10 mg 07/16/25 22:50 07/17/25 12:58 Cyclobenzaprine Hcl 10 Mg Tablet PO 10 mg Q8H PRN Administration Muscle Spasm Furosemide 80 mg 07/17/25 09:00 07/19/25 08:28 Furosemide 80 Mg Tablet PO 80 mg DAILY LEONID Administration Hydromorphone HCl 0.5 mg 07/16/25 08:42 07/16/25 20:45 Hydromorphone Hcl Inj (*Crx) 1 Mg/Ml Syr IV PUSH 0.5 mg Q4H PRN Administration Pain Rated 7-10 Ketorolac Tromethamine 15 mg 07/16/25 23:00 07/19/25 11:19 Ketorolac 15 Mg/Ml Vial (*Bkc) IV PUSH 07/21/25 17:01 15 mg Q6H LEONID Administration Lactulose 20 gm 07/16/25 17:00 07/19/25 08:28 Lactulose 20 Gm/30 Ml Udc PO 20 gm TID LEONID Administration Levetiracetam 500 mg 07/17/25 13:00 07/19/25 08:28 Levetiracetam 500 Mg Tablet PO 500 mg Q12HR LEONID Administration Levothyroxine Sodium 50 mcg 07/17/25 06:30 07/19/25 05:39 Levothyroxine Sodium 50 Mcg Tablet PO 50 mcg DAILY@0630 LEONID Administration Methocarbamol 500 mg 07/16/25 14:44 Methocarbamol 500 Mg Tablet PO DAILY PRN Spasms Mupirocin 1 applic 07/16/25 17:00 07/19/25 08:29 Mupirocin 2% Oint 22 Gm Tube TOPICAL 1 applic TID LEONID Administration Ondansetron HCl 4 mg 07/16/25 11:38 07/16/25 12:01 Ondansetron Inj 4 Mg/2 Ml Vial IV PUSH 4 mg Q4H PRN Administration Nausea And Vomiting Ondansetron HCl 4 mg 07/16/25 14:44 Ondansetron Hcl Odt 4 Mg Tablet PO TID PRN Nausea And Vomiting Pantoprazole Sodium 40 mg 07/16/25 21:00 07/19/25 08:29 Pantoprazole 40 Mg Tablet PO 40 mg Q12HR LEONID Administration Quetiapine Fumarate 200 mg 07/16/25 21:00 07/18/25 21:16 Quetiapine Fumarate 100 Mg Tablet PO 200 mg HS LEONID Administration Sertraline HCl 50 mg 07/17/25 09:00 07/19/25 08:29 Sertraline Hcl 50 Mg Tablet PO 50 mg DAILY LEONID Administration Spironolactone 200 mg 07/17/25 09:00 07/19/25 08:29 Spironolactone 50 Mg Tablet PO 200 mg QAM LEONID Administration Radiology Results: ITS Impressions Chest X-Ray 07/16/25 06:49 IMPRESSION: 1. No acute cardiopulmonary findings given portable technique. Head CT 07/16/25 06:59 IMPRESSION: 1. No acute intracranial findings. Cervical Spine CT 07/16/25 07:43 IMPRESSION: 1. Mild cervical spondylosis. ADDENDUM: 07/16/25 0756 There is an acute compression fracture of T2 with less than 1/5 loss of height. Thoracic Spine CT 07/16/25 07:47 IMPRESSION: 1. Acute compression fracture of T2. Acute burst fracture of T5. 2. Moderate thoracic spondylosis. 3. Thoracic dextroscoliosis. Labs Labs: Laboratory Results - last 24 hr 07/19/25 04:40 WBC 4.6 RBC 3.40 L Hgb 10.3 L Hct 31.9 L MCV 93.8 MCH 30.3 MCHC 32.3 RDW 15.7 H Plt Count 93 L MPV 9.9 Immature Gran % (Auto) 0.4 Neut % (Auto) 58.9 Lymph % (Auto) 23.0 [place] % (Auto) 13.3 H Eos % (Auto) 3.5 Baso % (Auto) 0.9 Lymph # (Auto) 1.06 [place] # (Auto) 0.6 Eos # (Auto) 0.2 Baso # (Auto) 0.0 Abs Immat Gran (auto) 0.02 Absolute Neuts (auto) 2.7 Absolute Nucleated RBC 0.000 Nucleated RBC % 0.0 % Immature Plt Fraction 1.4 Sodium 134 L Potassium 3.3 L Chloride 102 Carbon Dioxide 26 Anion Gap 6 BUN 12 Creatinine 1.12 H Estim Creat Clear Calc 65 Estimated GFR 51 L Glucose 85 Calcium 8.0 L Magnesium 1.7 Total Bilirubin 1.0 AST 55 H ALT 28 Alkaline Phosphatase 94 Total Protein 5.9 L Albumin 2.6 L
[2025-07-19 14:53] VITALS: BP 111/56; PULSE 74; RESP 18; TEMP 36.6; O2SAT 97
--- NOTE | 2025-07-19 15:18 | PCPTNOTE ---
Attempted to see patient of treatment this afternoon to participate in bed mobility, transfers, gait and stair climbing to improve performance for home environment. Patient declined PT treatment stating she has been up this afternoon and walked. Patient reports having no concerns for home stating I will be fine. Patient's daughter present and encuraged patient to practice stair climbing but patient continued to refuse.
--- NOTE | 2025-07-19 16:16 | PM.DS ---
DS: Admitting Diagnosis Discharge Date 07/19/2025 Admitting Diagnosis Seizure fall DS: Discharge Diagnosis Discharge Diagnosis (1) Cirrhosis of liver: Qualifiers: Hepatic cirrhosis type: other cirrhosis Qualified Code(s): K74.69 - Other cirrhosis of liver Code(s): K74.60 - Unspecified cirrhosis of liver Status: Acute (2) Portal hypertension: Code(s): K76.6 - Portal hypertension Status: Acute (3) Hepatitis C: Code(s): B19.20 - Unspecified viral hepatitis C without hepatic coma Status: Acute (4) Abdominal ascites: Qualifiers: Ascites type: other type Qualified Code(s): R18.8 - Other ascites Code(s): R18.8 - Other ascites Status: Acute (5) Back pain: Code(s): M54.9 - Dorsalgia, unspecified Status: Acute (6) Closed wedge compression fracture of T2 vertebra: Code(s): S22.020A - Wedge compression fracture of second thoracic vertebra, initial encounter for closed fracture Status: Acute (7) Stable burst fracture of T5 vertebra: Code(s): S22.051A - Stable burst fracture of T5-T6 vertebra, initial encounter for closed fracture Status: Acute (8) Seizure: Code(s): R56.9 - Unspecified convulsions Status: Acute DS: Summary Hospital Course Hospital Course: This is a 55-year-old female who presents to the ED for evaluation of back pain. Patient stated that she set up in the morning and started to hurt in her upper back. Patient also suspected that she had a seizure. 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 She recently moved back from [place]. She has history of cirrhosis and was recently admitted for the same. While in the ER she had another generalized tonic-clonic seizure. She received 2.5 mg of IV Versed for the seizure and was also loaded with IV Keppra 1 g. Her vitals have been stable Laboratory studies showed WBC of 8.4 hemoglobin of 12.6 hematocrit of 38.5 platelet count a 128. Chem panel showed sodium of 132 potassium 3.5 chloride 99 bicarbonate 23 BUN 12 creatinine 0.88 blood glucose of 124. LFTs with total bilirubin of 1.9 AST 71 ALT 38 alk phosphatase 119 ammonia level was normal at 14. TSH was normal at 4.6 to ethyl alcohol level was less than 10. CT head was negative CT thoracic spine for the back pain was performed which showed compression fracture of T12 and burst fracture of T5. Neurosurgery was consulted and suggested thoracic brace urology has also been consulted from the ER. She is admitted in this setting for further treatment. # Back pain post fall # Compression fracture T2 burst fracture of T5 no neuro deficits noted neurosurgery consulted. Follow up with Neurosurgery as an outpatient basis. Home health arranged. # Recurrent seizure tonic clonic in nature witnessed in the ER. Loaded with Keppra. She has been out of her benzodiazepine that she chronically was taking however since he moved from [place] she has not been able to feel it. She has been off alprazolam since 11/30 days now. She has been loaded with IV Keppra. Neurology was reconsulted. CT head scan was negative. Continue Keppra will also resume her alprazolam. MRI brain refused by the patient #Hepatic encephalopathy recently admitted for the same with ammonia level of 48. Currently ammonia level is normal. Continue On lactulose # Cirrhosis of liver with ascites and portal hypertension # Ascites requiring recurrent paracentesis # History of upper esophageal bleed status post banding in [place] 12/2024 # DVT prophylaxis SCDs # Thrombocytopenia due to cirrhosis of liver # Anxiety disorder # Hepatitis C positive need to follow up with hepatology/Infectious Disease for treatment # Code status full code Time Spent with Patient Time attestation: Total time spent providing and/or coordinating discharge services: 40 minutes Exam Narrative: APPEARANCE: Well appearing, no pain, no distress, well-nourished. HEAD: normocephalic, atraumatic. EYES: PERRLA/EOMI, conjunctivae clear. NOSE: Normal no drainage NECK: Supple. No adenopathy, no masses. RESPIRATORY: Airway patent, respirations nonlabored. Clear to auscultation bilaterally, no rales, rhonchi, wheezing. CARDIOVASCULAR: Regular rate and rhythm without murmurs rubs or gallops. ABDOMINAL: Soft, nontender, nondistended, normal bowel sounds NEURO: Alert. Cranial nerves II through XII intact. SKIN: Warm, dry. Normal Color DS: Data Data Completed and Pending Labs on day of discharge: Labs from last 24 hours 07/19/25 04:40 WBC 4.6 RBC 3.40 L Hgb 10.3 L Hct 31.9 L MCV 93.8 MCH 30.3 MCHC 32.3 RDW 15.7 H Plt Count 93 L MPV 9.9 Immature Gran % (Auto) 0.4 Neut % (Auto) 58.9 Lymph % (Auto) 23.0 [place] % (Auto) 13.3 H Eos % (Auto) 3.5 Baso % (Auto) 0.9 Lymph # (Auto) 1.06 [place] # (Auto) 0.6 Eos # (Auto) 0.2 Baso # (Auto) 0.0 Abs Immat Gran (auto) 0.02 Absolute Neuts (auto) 2.7 Absolute Nucleated RBC 0.000 Nucleated RBC % 0.0 % Immature Plt Fraction 1.4 Sodium 134 L Potassium 3.3 L Chloride 102 Carbon Dioxide 26 Anion Gap 6 BUN 12 Creatinine 1.12 H Estim Creat Clear Calc 65 Estimated GFR 51 L Glucose 85 Calcium 8.0 L Magnesium 1.7 Total Bilirubin 1.0 AST 55 H ALT 28 Alkaline Phosphatase 94 Total Protein 5.9 L Albumin 2.6 L Imaging Radiologist's impression: ITS Impressions Chest X-Ray 07/16/25 06:49 IMPRESSION: 1. No acute cardiopulmonary findings given portable technique. Head CT 07/16/25 06:59 IMPRESSION: 1. No acute intracranial findings. Cervical Spine CT 07/16/25 07:43 IMPRESSION: 1. Mild cervical spondylosis. ADDENDUM: 07/16/25 0756 There is an acute compression fracture of T2 with less than 1/5 loss of height. Thoracic Spine CT 07/16/25 07:47 IMPRESSION: 1. Acute compression fracture of T2. Acute burst fracture of T5. 2. Moderate thoracic spondylosis. 3. Thoracic dextroscoliosis. Discharge Plan Discharge Attending physician on discharge: Josemanuel Javier Consulting providers: Rocael Ross; Hal Ramírez Discharging Clinician: Josemanuel Javier Anticipated Discharge Date/Time: 07/19/25 16:18 Patient Disposition: Home with Home Health Service Activity: as tolerated Diet: heart healthy Patient Instructions: Antibiotic Form, Epilepsy (GEN), Procedures for Compression Fractures of the Spine (GEN) Patient Language: [place]ian Stand Alone Forms: General Discharge Information Follow-up/Referrals: Winsome,Nicholas Williamson Jr., MD [Primary Care Provider, Unknown] - 1 Week Rocael Ross MD [Physician, Neurosurgery] - 6 Weeks Hal Ramírez MD [Physician, Neurology] - 4 Weeks Discharge Medications: New hydrocodone-acetaminophen 5-325 mg Tablet 1 tablet PO Q4H PRN (Reason: Pain Rated 4-6) Qty: 20 0RF levetiracetam [Keppra] 500 mg Tablet 500 mg PO Q12HR Qty: 60 0RF Continued lactulose [Constulose] 10 gram/15 mL solution 30 ml PO TID 30 Days Qty: 2700 3RF Rx Instructions: Titrate 3-4 loose BM per day furosemide 80 mg tablet 80 mg PO DAILY Qty: 30 0RF spironolactone [Aldactone] 50 mg tablet 200 mg PO QAM Qty: 120 0RF bupropion HCl 200 mg tablet sustained-release 12 hr 200 mg PO Q12H quetiapine 100 mg tablet 200 mg PO HS levothyroxine 50 mcg tablet 50 mcg PO DAILY pantoprazole 40 mg tablet,delayed release (DR/EC) 40 mg PO Q12H sertraline 50 mg tablet 50 mg PO DAILY mupirocin 2 % ointment 1 applic TOPICAL TID Rx Instructions: apply to belly button ondansetron 4 mg tablet,disintegrating 4 mg PO TID PRN (Reason: nausea and vomiting) methocarbamol 500 mg Tablet 500 mg PO DAILY PRN (Reason: spasms) Qty: 30 0RF alprazolam 1 mg tablet 1 mg PO BID PRN (Reason: anxiety) Qty: 10 0RF Date of admission: 07/16/25 08:42 Primary Care Provider: Winsome,Nicholas Williamson Jr. Admitting Provider: Josemanuel Javier Attending physician on admission: Josemanuel Javier Condition: Stable
== END 2025-07-19 17:21 | disposition home health service (06) ==
LOC: ANHED 07-16 06:53 → ANHIMU 07-16 09:50 → ANH2MED 07-17 18:09
PROVIDERS: Student in an Organized Health Care Education/Training Program; Admitting Provider Internal Medicine; Emergency Provider Emergency Medicine; PCP Hospitalist; Visit Provider Internal Medicine
DX: K74.69 Other cirrhosis of liver (principal); K76.6 Portal hypertension; B19.20 Unspecified viral hepatitis C without hepatic coma; R18.8 Other ascites; S22.020A Wedge compression fracture of second thoracic vertebra, initial encounter for closed fracture; S22.051A Stable burst fracture of T5-T6 vertebra, initial encounter for closed fracture; R56.9 Unspecified convulsions; Z87.891 Personal history of nicotine dependence; Z80.1 Family history of malignant neoplasm of trachea, bronchus and lung
CPT/HCPCS: 36415; 70450; 71045; 72125; 72128; 80053; 80307; 81001; 82077; 82140; 83735; 84439; 84443; 84480; 85025; 85055; 85610; 85730; 93005; 96361; 96374; 96375; 96376; 97162; 97166; 99285; A9270; G0378; G0379; J1171; J1885; J1953; J2250; J2405; J7120

== ENCOUNTER 2025-08-04 12:16 | Emergency (ER) | payer OTHER, SELFPAY ==
--- OUTSIDE RECORDS SUMMARY | 2010-06-28 02:45 | XMS_ITS | Continuity of Care Document ---
Author Organization [facility] Address [id number] [place] [address] Exec utive [facility] [address] [place] [address] Phone Care Team Providers Care Filter Press Pumper Name Role Phone Richardson OD, Yovany Unavailable Unavailable Procedures Procedure Date Eye Exam & Treatment Refraction Advance Directives Directive Yes / No Effective Date File Name No Information Encounters Encounter Description Practice Location Reason(s) For Visit Diagnoses Date Provider Providers Copied on Encounter [facility], [address], [place], [place], [id number], [place] tel:[phone] [facility] No Information 0-201 0 Richardson OD Yovany. [address] , [address], [place], [address], [place]. tel:[phone] Family History Family Member Type Diagnosis Age At Onset No Information Payers Payer name Insurance type Covered republican ID Authoriza tion(s) Medicaid [facility] [id number] Social History Type Description Quantity Date Captured Comments Sex Female Smoking Status No Information Chief Complaint And Reason For Visit No Information Reason For Referral Reason For Referral No Information History Of Present Illness Encounter Date Complaint History Of Prese nt Illness No Information Functional Status Date Functional Assessmen t No Information Instructions Date Instruction Additional Infor mation No Information Assessments Type Assessment Date No Information Patient Care Teams Name Effective Dates (start - stop) Status Members No Information
--- OUTSIDE RECORDS SUMMARY | 2010-06-28 02:45 | XMS_ITS | Continuity of Care Document ---
Author Organization [facility] Address [id number] [place] [address] Exec utive [facility] [address] [place] [address] Phone Care Team Providers Care Print Designer Name Role Phone Richardson OD, Yovany Unavailable Unavailable Procedures Procedure Date Eye Exam & Treatment Refraction Advance Directives Directive Yes / No Effective Date File Name No Information Encounters Encounter Description Practice Location Reason(s) For Visit Diagnoses Date Provider Providers Copied on Encounter [facility], [address], [place], [place], [id number], [place] tel:[phone] [facility] No Information 0-201 0 Richardson OD Yovany. [address] , [address], [place], [address], [place]. tel:[phone] Family History Family Member Type Diagnosis Age At Onset No Information Payers Payer name Insurance type Covered alliance party ID Authoriza tion(s) Medicaid [facility] [id number] Social History Type Description Quantity Date Captured [...]
--- OUTSIDE RECORDS SUMMARY | 2024-12-23 19:00 | XMS_ITS | Continuity of Care Document ---
Author Organization [facility] Address [address] [place] [address] Phone Care Team Providers Care Vending Machine Coin Collector Name Role Phone Rebekah Jeff Conteh Unavailable Unavail able Procedures Procedure Date SUBSEQUENT [facility] CARE [facility] Advance Directives Directive Yes / No Effective Date File Name No Information Encounters Encounter Description Practice Location Reason(s) For Visit Diagnoses Date Provider Providers Copied on Encounter [facility], [address] [place], [place], [id number], tel:[phone] [facility] No Information 5 Rebekah Wero Aguilar. [address], [address], . tel:[phone] Referring Provider: Jose Perez, [address] [place] [address], [address]. tel:[phone] Family History Family Member Type Diagnosis Age At Onset No Information Payers Payer name Insurance type Covered libertarian ID Authoriza tion(s) No Information Social History Type Description Quantity Date Captured Comments Sex Female Smoking Status No Information Sexual Orientation Straight or heterosexual Chief Complaint And Reason For Visit No [...]
--- OUTSIDE RECORDS SUMMARY | 2024-12-23 19:00 | XMS_ITS | Continuity of Care Document ---
Author Organization [facility] Address [address] [place] [address] Phone Care Team Providers Care Sales Demonstrator Name Role Phone Rebekah Jeff Conteh Unavailable Unavail able Procedures Procedure Date SUBSEQUENT HOSPITAL CARE [facility]ARE Advance Directives Directive Yes / No Effective Date File Name No Information Encounters Encounter Description Practice Location Reason(s) For Visit Diagnoses Date Provider Providers Copied on Encounter [facility], [address] [place], [place], [id number], tel:[phone] [facility] Inpatient No Information 5 Rebekah Wero Aguilar. [address], [address], . tel:[phone] Referring Provider: Jose Perez, [address] [place] [address], [address]. tel:[phone] Family History Family Member Type Diagnosis Age At Onset No Information Payers Payer name Insurance type Covered democrat ID Authoriza tion(s) No Information Social History [...]
--- NOTE | ~2025-08-04 | CT_ITS ---
EXAM/PROCEDURE: CT thoracic spine wo con HISTORY: back pain, recent fracture COMPARISON: July 16, 2025 TECHNIQUE: Thoracic spine CT FINDINGS: Multiple fractures in the thoracic spine are again noted. Approximately 50-60% compression/burst fracture of T5 with minimal retropulsion similar in alignment; mild sclerotic and callus formation changes are developing. Approximately 15% compression fracture of T2, as well as anterior compression fracture of T11 and T12 unchanged as well. No new fractures. No acute or aggressive bony or soft tissue process seen. No paraspinal or epidural hematoma identified. No severe spinal calcinosis or large disc herniation seen. Small right-sided Bochdalek hernia incidentally noted. Partially visualized splenomegaly and free fluid in the upper abdomen noted. IMPRESSION: 1. Multiple fractures including 50-60% burst fracture of T5 with no gross interval change in alignment or compression. Healing appears to be developing involving the T5 fracture. 2. Other incidental findings including free fluid in the partially visualized upper abdomen. 3. If new or worsening fractures are suspected, consider thoracic spine MRI for optimal sensitivity. Reviewed, dictated and finalized at location A. LLIGENCE SPECIALIST IMPRESSION: 1. Multiple fractures including 50-60% burst fracture of T5 with no gross inter david change in alignment or compression. Healing appears to be developing involv ing the T5 fracture. 2. Other incidental findings including free fluid in the partially visualized u pper abdomen. 3. If new or worsening fractures are suspected, consider thoracic spine MRI for optimal sensitivity.
[2025-08-04 12:43] VITALS: BP 136/89; PULSE 90; RESP 16; TEMP 36.8; O2SAT 100
--- NOTE | 2025-08-04 14:02 | ED.BACK ---
HPI - Back Pain/Injury General Chief Complaint: Extremity Problem,Nontraumatic <Michelle Jaramillo PA-C - Last Filed: 08/04/25 18:03> Stated Complaint: numb in r leg after spinal fx <Michelle Jaramillo PA-C - Last Filed: 08/04/25 18:03> Time Seen by Provider: 08/04/25 14:02 <Michelle Jaramillo PA-C - Last Filed: 08/04/25 18:03> Focused HPI: This is a 55 year old female that presents to the ER after a back fracture. Reports she has a thoracic spine fracture. Reports she has not been able to find someone that takes her insurance so she has not had any follow up. Reports her pain has worsened today. Wondering if she re-injured it. No known injury that she can think of. She has been taking [place] and methocarbamol with little relief. GENERAL: Well-appearing, well-nourished, and in no acute distress. HEAD: Normocephalic, atraumatic. CHEST: No respiratory distress. HEART: Regular rate NEURO: ?Alert and oriented x3. Normal gait Patient screened in triage and initial orders placed.? ?Additional care and disposition to be based upon?diagnostic testing and treatment. <Michelle Jaramillo PA-C - Last Filed: 08/04/25 18:03> History of Present Illness HPI Narrative: Agree with HPI <Remy Johnston DO - Last Filed: 08/04/25 22:27> Related Data Home Medications: Home Medications ?Medication ?Instructions ?Recorded ?Confirmed ?Last Taken ?Type bupropion HCl 200 mg tablet,12 hr 200 mg PO Q12H 07/05/25 07/16/25 Unknown History sustained-release levothyroxine 50 mcg tablet 50 mcg PO DAILY 07/05/25 07/16/25 Unknown History mupirocin 2 % topical ointment 1 applic topical TID 07/05/25 07/16/25 Unknown History ondansetron 4 mg disintegrating 4 mg PO TID PRN nausea and vomiting 07/05/25 07/16/25 Unknown History tablet pantoprazole 40 mg tablet,delayed 40 mg PO Q12H 07/05/25 07/16/25 Unknown History release quetiapine 100 mg tablet 200 mg PO HS 07/05/25 07/16/25 Unknown History sertraline 50 mg tablet 50 mg PO DAILY 07/05/25 07/16/25 Unknown History <Michelle Jaramillo PA-C - Last Filed: 08/04/25 18:03> Allergies/Adverse Reactions: Allergies Allergy/AdvReac Type Severity Reaction Status Date / Time adhesive tape AdvReac Intermediate blister Verified 07/16/25 18:14 <Michelle Jaramillo PA-C - Last Filed: 08/04/25 18:03> Review of Systems Review of Systems: All systems reviewed & are unremarkable except as noted in HPI and below <MARIN Miller Last Filed: 08/04/25 18:03> [facility] Family History Family History: Family History Father Lung cancer <Michelle Jaramillo PA-C - Last Filed: 08/04/25 18:03> Social History Social History: Social History Smoking packs per day: 1 Smoking cigarettes per day: 20.0 Years smoked: 30 Smoking pack-years: 30.00 Tobacco type: cigarettes Smoking end date: 06/29/20 Alcohol intake: never Substance use: never Lack of Transportation: No Lack of Food: Never True Current Housing: I Have Housing Concerned About Future Housing: No Difficulty Paying Gas/Electric Bills: No Difficulty Paying for Meds: No Currently Unemployed: No Education: Associate Degree Difficulty w/ Childcare or Family Care: No Spiritual care concerns: No <MARIN Miller Last Filed: 08/04/25 18:03> Exam Narrative: APPEARANCE: No acute distress, nontoxic, resting in bed EYES: EOMI HEENT: Normocephalic, atraumatic, OMM RESPIRATORY: No respiratory distress Clear to auscultation bilaterally with no rhonchi wheezing or rales. CARDIOVASCULAR: Regular rate and rhythm without murmurs rubs or gallops. ABDOMINAL: Soft, nontender, nondistended, no rebound or guarding MUSCULOSKELETAl: Back brace in place. Moves all extremities. Tenderness over the midthoracic back. NEURO: Awake and alert. Following commands, speech normal, no focal deficits SKIN:: Warm, dry. No rashes lesions or abrasions PSYCHIATRIC: Normal affect/mood, <Remy Johnston DO - Last Filed: 08/04/25 22:27> Course Vital Signs Vital signs: Vital Signs Temperature 98.2 F 08/04/25 12:43 Pulse Rate 90 08/04/25 12:43 Respiratory Rate 16 08/04/25 12:43 Blood Pressure 136/89 08/04/25 12:43 Pulse Oximetry 100 08/04/25 12:43 Oxygen Delivery Room Air 08/04/25 12:43 Temperature 98.8 F 08/04/25 16:59 Pulse Rate 79 08/04/25 16:59 Respiratory Rate 18 08/04/25 16:59 Blood Pressure 147/92 H 08/04/25 16:59 Pulse Oximetry 98 08/04/25 16:59 Oxygen Delivery Room Air 08/04/25 12:43 <Michelle Jaramillo PA-C - Last Filed: 08/04/25 18:03> Vital Signs Temperature 98.2 F 08/04/25 12:43 Pulse Rate 90 08/04/25 12:43 Respiratory Rate 16 08/04/25 12:43 Blood Pressure 136/89 08/04/25 12:43 Pulse Oximetry 100 08/04/25 12:43 Oxygen Delivery Room Air 08/04/25 12:43 Temperature 98.8 F 08/04/25 16:59 Pulse Rate 79 08/04/25 16:59 Respiratory Rate 18 08/04/25 16:59 Blood Pressure 147/92 H 08/04/25 16:59 Pulse Oximetry 98 08/04/25 16:59 Oxygen Delivery Room Air 08/04/25 12:43 <Remy Johnston DO - Last Filed: 08/04/25 22:27> MDM - Back Pain/Injury MDM Narrative Medical decision making narrative: 55-year-old female Presenting for midthoracic back pain in the setting of recently fractured thoracic spine. On initial evaluation patient was in no acute distress afebrile, hemodynamic stable. Differentials include but are not limited to: Fracture, sprain strain, acute on chronic pain Notable exam findings: Thoracic tenderness as above. Notable imaging findings: CT thoracic spine showed stable thoracic fractures as previously noted Patient was given oxycodone and Valium. Patient has poor follow-up at this point because of insurance difficulties. She also has known liver disease and is trying to follow up with Dr Kovacs. She was given refills of her medications as she was about to run out of them. She was also given prescriptions for Percocet and Valium for her pain related to her fractures while she is waiting to get in with spinal surgeons. She was given a referral to Dr. Holliday, neurosurgery, for further evaluation and management of that. Patient was agreeable to this plan. Given strict return precautions. <Remy Johnston DO - Last Filed: 08/04/25 22:27> Medical Records Attestation: I reviewed the patient's medical records. <Remy Johnston DO Last Filed: 08/04/25 22:27> Imaging Data Attestation: I personally reviewed and interpreted this imaging study as follows: <Remy Johnston DO - Last Filed: 08/04/25 22:27> Radiologist's impression: Impressions Thoracic Spine CT 08/04/25 14:36 IMPRESSION: 1. Multiple fractures including 50-60% burst fracture of T5 with no gross interval change in alignment or compression. Healing appears to be developing involving the T5 fracture. 2. Other incidental findings including free fluid in the partially visualized upper abdomen. 3. If new or worsening fractures are suspected, consider thoracic spine MRI for optimal sensitivity. <Remy Johnston DO Last Filed: 08/04/25 22:27> Discharge Plan Discharge Clinical Impression: Back pain Qualifiers: Back pain location: thoracic back pain Chronicity: acute Back pain laterality: midline Qualified Code(s): M54.6 - Pain in thoracic spine Fracture of thoracic spine Qualifiers: Encounter type: subsequent encounter Thoracic vertebra fracture level: unspecified thoracic vertebra Fracture type: closed Fracture morphology: unspecified fracture morphology Fracture healing: with routine healing Qualified Code(s): S22.009D - Unspecified fracture of unspecified thoracic vertebra, subsequent encounter for fracture with routine healing <Michelle Jaramillo PA-C - Last Filed: 08/04/25 18:03> Patient Disposition: Home <Michelle Jaramillo PA-C - Last Filed: 08/04/25 18:03> Condition: Stable <Michelle Jaramillo PA-C - Last Filed: 08/04/25 18:03> Instructions: Antibiotic Form, Vertebral Compression Fracture (ED) <Michelle Jaramillo PA-C - Last Filed: 08/04/25 18:03> Additional Instructions: Take Valium and oxycodone as prescribed. You were given refills of your furosemide and spironolactone. Continue to follow with Dr. Kovacs, regarding your liver problems. You were given a referral to Dr. Holliday, spinal surgery, for further evaluation your fractures. Return to the ED for any new or worsening symptoms. <Michelle Jaramillo PA-C - Last Filed: 08/04/25 18:03> Patient Language: Sami <Michelle Jaramillo PA-C - Last Filed: 08/04/25 18:03> Prescriptions: New diazepam [Valium] 5 mg tablet 5 mg PO HS PRN (Reason: muscle spasm) Qty: 7 0RF oxycodone 5 mg tablet 5 mg PO Q6H PRN (Reason: pain) Qty: 12 0RF furosemide 80 mg tablet 80 mg PO DAILY Qty: 30 0RF spironolactone 50 mg tablet 200 mg PO QAM 30 Days Qty: 120 0RF No Action lactulose [Constulose] 10 gram/15 mL solution 30 ml PO TID 30 Days Qty: 2700 3RF Rx Instructions: Titrate 3-4 loose BM per day furosemide 80 mg tablet 80 mg PO DAILY Qty: 30 0RF spironolactone [Aldactone] 50 mg tablet 200 mg PO QAM Qty: 120 0RF bupropion HCl 200 mg tablet sustained-release 12 hr 200 mg PO Q12H quetiapine 100 mg tablet 200 mg PO HS levothyroxine 50 mcg tablet 50 mcg PO DAILY pantoprazole 40 mg tablet,delayed release (DR/EC) 40 mg PO Q12H sertraline 50 mg tablet 50 mg PO DAILY mupirocin 2 % ointment 1 applic TOPICAL TID Rx Instructions: apply to belly button ondansetron 4 mg tablet,disintegrating 4 mg PO TID PRN (Reason: nausea and vomiting) methocarbamol 500 mg Tablet 500 mg PO DAILY PRN (Reason: spasms) Qty: 30 0RF levetiracetam [Keppra] 500 mg Tablet 500 mg PO Q12HR Qty: 60 0RF hydrocodone-acetaminophen 5-325 mg Tablet 1 tablet PO Q4H PRN (Reason: Pain Rated 4-6) Qty: 20 0RF alprazolam 1 mg tablet 1 mg PO BID PRN (Reason: anxiety) Qty: 10 0RF <Michelle Jaramillo PA-C - Last Filed: 08/04/25 18:03> Follow-up/Referrals: Winsome,Nicholas Williamson Jr., MD [Non-Staff, Unknown] <Michelle Jaramillo PA-C - Last Filed: 08/04/25 18:03>
[2025-08-04] MEDS: oxyCODONE HCL (*CRX) 5 MG TAB IR PO ×2 (16:23→17:58)
[2025-08-04] MEDS: diazePAM (*CRX) 5 MG TABLET PO (16:23)
[2025-08-04] MEDS: MORPHINE SULFATE (*CRX) 4 MG/ML INJ IM (16:23)
[2025-08-04 16:59] VITALS: BP 147/92; PULSE 79; RESP 18; TEMP 37.1; O2SAT 98
--- OUTSIDE RECORDS SUMMARY | 2025-08-04 19:30 | XMS_ITS | Clinical Summary ---
Author Organization [facility] Address [address] [address] Phone Care Team Providers Care Saw Tailer Name Role Phone Winsome Zambrano MD, Nicholas [...] 07/18/2023 Assessment & Plan (08/11/2023 2:07 PM BOILER BLOWER): Chronic stable Well controlled Continue current prescribed [...] weight Assessment & Plan (08/11/2023 2:48 PM BOILER BLOWER): Monitor weight Assessment & Plan (07/18/2023 11:49 [...] 01/25/2021 Assessment & Plan (08/11/2023 2:47 PM BOILER BLOWER): Reviewed labs, screenings and vaccines Bipolar 1 disorder with moderate zia Assessment & Plan (02/17/2024 3:31 PM CDT): Chronic stable Well controlled Continue current prescribed medications seroquel at current dose Assessment & Plan (01/25/2021 2:40 PM CDT): Will try eugneio first and see how this work to help treat this If not, we will go back to fatemeh Encounters Date Type Department Care Team Description 07/20/2025 Orders Only [facility] Health Information Management [address] [place] [phone] Scanning, Provider 07/20/2025 Telephone [facility] [address] [place] [phone] Nicholas Schumacher Jr., MD follow for home health 07/08/2025 Orders Only [facility] Health Information Management [address] [place] [phone] Scanning, Provider 07/06/2025 Telephone [facility] [address] [place] [phone] Nicholas Schumacher Jr., MD Med Refill 07/05/2025 Orders Only [facility] Health Information Management [address] [place] [phone] Scanning, Provider from Last 3 Months Immunizations Immunization Administration Dates Next Due Influenza, Quadrivalent, Spl it, Preservative Free, Intramuscular 07/21/2023,06/17/2020,08/18/2019,06/26,07/29/2017 Influenza, Unspecified 07/30/2023,2022(Deferred: Patient Refused),08/08/2022,07/30/2022(Deferre d: Patient Refused) [place] (J&J) SARS-CoV-2 Vaccination 01/24/2021 Tdap 08/11/2018 ZOSTER [...] on file Sexual Orientation Not on file Last Filed Vital Signs Vital Sign Reading Time Taken Comments Blood Pressure 138/78 08/11/2023 1:37 PM BOILER BLOWER Pulse 90 08/11/2023 1:37 PM BOILER BLOWER Temperature 36.7 C (98 F) 08/11/2023 1:37 PM BOILER BLOWER Respiratory Rate 18 08/11/2023 1:37 PM BOILER BLOWER Oxygen Saturation 98% 08/11/2023 1:37 PM BOILER BLOWER Inhaled Oxygen Concentration - - Weight 105.7 [...] 09/15/2023, 08/11/2023, Additional history exists Covid-19 Vaccine (2024-2 6 season) 2025 03/26/2021, 02/23/2021, 01/24/2021 Influenza Vaccine (#1) 2025 3, 07/21/2023, 08/08/2022, Additional history exists DTaP/Tdap/Td Vaccine (2 - Td or Tdap) 08/11/2028 08/11/2018 Zoster Vaccine Completed 02/06/2024, 09/2022, 07/21/2023 Procedures Procedure Name Priority Date/Time Associated Diagnosis Comments SCAN - RADIOLOGY/IMAGING 07/20/2025 9:31 PM CDT SCAN - RADIOLOGY/IMAGING 07/08/2025 SCAN - RADIOLOGY/IMAGING 07/05/2025 from Last 3 Months Results * SCAN - RADIOLOGY/IMAGING (07/20/2025 9:31 PM CDT) Anatomical Region Laterality Modality Other us Provider Scanning Edited Result - Final * SCAN - RADIOLOGY/IMAGING (07/08/2025) Anatomical Region Laterality Modality Other us Provider Scanning Final Result * SCAN - RADIOLOGY/IMAGING (07/05/2025) Anatomical Region Laterality Modality Other us Provider Scanning Final Result from Last 3 Months Insurance Care Teams Saw Tailer Relationship Specialty Start Date End Date Nicholas Schumacher Jr., MD [address] [place] [phone] PCP - General Internal Medicine 01/17/21
--- OUTSIDE RECORDS SUMMARY | 2025-08-04 21:05 | XMS_ITS | Clinical Summary ---
Author Organization [facility] Address [address] [address] Phone Care Team Providers Care Construction Economist Name Role Phone Winsome Zambrano MD, Nicholas [...] 07/18/2023 Assessment & Plan (08/11/2023 2:07 PM FLESHING MACHINE OPERATOR): Chronic stable Well controlled Continue current prescribed [...] weight Assessment & Plan (08/11/2023 2:48 PM FLESHING MACHINE OPERATOR): Monitor weight Assessment & Plan (07/18/2023 11:49 [...] 01/25/2021 Assessment & Plan (08/11/2023 2:47 PM FLESHING MACHINE OPERATOR): Reviewed labs, screenings and vaccines Bipolar 1 disorder with moderate zia Assessment & Plan (02/17/2024 3:31 PM CDT): Chronic stable Well controlled Continue current prescribed medications seroquel at current dose Assessment & Plan (01/25/2021 2:40 PM CDT): Will try eugenio first and see how this work to help treat this If not, we will go back to fatemeh Encounters Date Type Department Care Team Description 07/20/2025 Orders Only [facility] Information Management [address] [place] [phone] Scanning, Provider 07/20/2025 Telephone [facility] [address] [place] [phone] Nicholas Schumacher Jr., MD follow for home health 07/08/2025 Orders Only [facility] Information Management [address] [place] [phone] Scanning, Provider 07/06/2025 Telephone [facility] [address] [place] [phone] Nicholas Schumacher Jr., MD Med Refill 07/05/2025 Orders Only [facility] Information Management [address] [place] [phone] Scanning, Provider from Last 3 Months Immunizations Immunization Administration Dates Next Due Influenza, Quadrivalent, Spl it, Preservative Free, Intramuscular 07/21/2023,06/17/2020,08/18/2019,06/26,07/29/2017 Influenza, Unspecified 07/30/2023,2022(Deferred: Patient Refused),08/08/2022,07/30/2022(Deferre d: Patient Refused) [employer] (J&J) SARS-CoV-2 Vaccination 01/24/2021 Tdap 08/11/2018 ZOSTER [...] Comments Blood Pressure 138/78 08/11/2023 1:37 PM FLESHING MACHINE OPERATOR Pulse 90 08/11/2023 1:37 PM FLESHING MACHINE OPERATOR Temperature 36.7 C (98 F) 08/11/2023 1:37 PM FLESHING MACHINE OPERATOR Respiratory Rate 18 08/11/2023 1:37 PM FLESHING MACHINE OPERATOR Oxygen Saturation 98% 08/11/2023 1:37 PM FLESHING MACHINE OPERATOR Inhaled Oxygen Concentration - - Weight 105.7 [...] from Last 3 Months Insurance Care Teams Construction Economist Relationship Specialty Start Date End Date Nicholas Schumacher Jr., MD [address] [place] [phone] PCP - General Internal Medicine 01/17/21
--- OUTSIDE RECORDS SUMMARY | 2025-08-04 21:05 | XMS_ITS | Clinical Summary ---
Author Organization [facility] Address [address] [place] [address] Care Team Providers Care Manufacturing Process Technician Name Role Phone Unavailable Primary Care Provider Unavailabl e Source Comments [facility] [employer],non-owned Affiliates and Associated Physician Practices is amultiple site organization consisting of ambulatory clinics and hospital sitesin [place], [place], [place] and [place]. This disclosure is being madepursuant to the Care Everywhere program and may not contain all information available regarding this patient. Last updated 18.[facility] [employer] Social History Tobacco Use Types Packs/Day Years Used Date Smoking Tobacco: Every Day Cigarettes Alcohol Use Standard Drinks/Week Comments No 0 (1 standard drink = 0.6 oz pur e alcohol) Comments Unknown Sex and Gender Information Value Date Recorded Sex Assigned at Not on file Legal Sex Female 6:00 PM COLLAR FOLDER OPERATOR Gender Identity Not on file Sexual Orientation Not on file Last Filed Vital Signs Vital Sign Reading Time Taken Comments Blood Pressure 137/86 01/20/2016 1:40 PM CDT Pulse 90 01/20/2016 1:40 PM CDT Temperature 36.7 C (98.1 F) 01/20/2016 1:40 PM CDT Respiratory Rate 16 01/20/2016 1:40 PM CDT Oxygen Saturation 96% 01/20/2016 1:40 PM CDT Inhaled Oxygen Concentration - - Weight 90.7 kg (200 lb) 01/20/2016 1:40 PM CDT Height 170.2 cm (5' 7) 01/20/2016 1:40 PM CDT Body Mass Index 31.32 01/20/2016 1:40 PM CDT Plan of Treatment Health Maintenance Due Date Last Done Comments COLOGUARD (AGES 45-75) - COL ON CA SCREENING 1970 COLON MONITORING 1970 COLONOSCOPY - COLON CA SCREENING 1970 CT COLONOGRAPHY - COLON CA SCREENING 1970 Colorectal Cancer Screening 1970 FIT - COLON CA SCREENING 1970 FLEX SIG - COLON CA SCREENING 1970 LIPID TESTING 1970 MAMMOGRAM 1970 HIV SCREENING 1985 HEPATITIS C SCREENING 01/13/1988 DTAP/TDAP/TD VACCINES (1 - Tdap) 1989 HEPATITIS B VACCINE (1 of 3 - 19+ 3-dose series) 1989 PNEUMOCOCCAL VACCINE 50+ (1 of 1 - PCV) 01/18/2020 ZOSTER VACCINE (1 of 2) 01/18/2020 DEPRESSION SCREENING 09/29/2024 COVID-19 VACCINE (1 - 2023-2 5 season) 2025 INFLUENZA VACCINE (#1) 2025 HIB VACCINE Aged Out No longer eligi ble based on patient's age to complete this topic HPV VACCINE Aged Out No longer eligi ble based on patient's age to complete this topic MENINGOCOCCAL (Group B) VACC INE SHARED DECISION-MAKING Aged Out No longer eligibl e based on patient's age to complete this topic MENINGOCOCCAL GROUPS A/C/Y/W VACCINE Aged Out No longer eligible b ased on patient's age to complete this topic Insurance [address]
== END 2025-08-04 18:06 | disposition home or self-care (01) ==
PROVIDERS: Emergency Provider Student in an Organized Health Care Education/Training Program
DX: S22.051D Stable burst fracture of T5-T6 vertebra, subsequent encounter for fracture with routine healing (principal); S22.020D Wedge compression fracture of second thoracic vertebra, subsequent encounter for fracture with routine healing; S22.080D Wedge compression fracture of T11-T12 vertebra, subsequent encounter for fracture with routine healing; M54.6 Pain in thoracic spine; K76.9 Liver disease, unspecified; Z87.891 Personal history of nicotine dependence; X58.XXXD Exposure to other specified factors, subsequent encounter
CPT/HCPCS: 72128; 96372; 99284; A9270; J2270

== ENCOUNTER 2025-08-19 13:57 | Emergency (ER) | payer OTHER, SELFPAY ==
--- NOTE | ~2025-08-19 | XR_ITS ---
EXAMINATION: Thoracic spine 3 views: DATE: 08/19/2025 INDICATION: Trauma. Back pain. TECHNIQUE: AP, lateral and swimmer's views were obtained. COMPARISON: CT thoracic spine dated 08/04/2025. FINDINGS: Compression fracture of T5 thoracic vertebral body and mild compression of T11 vertebral body consistent with CT findings: 08/04/2025. Degenerative disc disease of moderate degree at multiple levels. Soft tissues are unremarkable. IMPRESSION: 1. Previously noted fractures involving the T5 and T11 thoracic vertebrae are consistent with CT findings on 08/04/2025. 2. Degenerative disc changes of moderate degree at multiple levels. Reviewed, dictated and finalized at location T. T TECHNICIAN IMPRESSION: 1. Previously noted fractures involving the T5 and T11 thoracic vertebrae are c onsistent with CT findings on 08/04/2025. 2. Degenerative disc changes of moderate degree at multiple levels.
--- OUTSIDE RECORDS SUMMARY | 2025-08-19 14:01 | XMS_ITS | Clinical Summary ---
Author Organization [facility] Address [address] [place] [address] Care Team Providers Care Campaign Worker Name Role Phone Unavailable Primary Care Provider Unavailabl e Source Comments [facility] [employer],non-owned Affiliates and Associated Physician Practices is amultiple site organization consisting of ambulatory clinics and hospital sitesin [place], [place], [place] and [place]. This disclosure is being madepursuant to the Care Everywhere program and may not contain all information available regarding this patient. Last updated 18.[facility] [employer] Social History Tobacco Use Types Packs/Day Years Used Date Smoking Tobacco: Every Day Cigarettes Alcohol Use Standard Drinks/Week Comments No 0 (1 standard drink = 0.6 oz pur e alcohol) Comments Unknown Sex and Gender Information Value Date Recorded Sex Assigned at Not on file Legal Sex Female 6:00 PM CARDING MACHINE OPERATOR Gender Identity Not on file Sexual [...] of 3 - 19+ 3-dose series) 1989 PAP SMEAR 1991 Cervical Cancer Screening 01/18/2000 PAP with HPV 01/18/2000 PNEUMOCOCCAL VACCINE 50+ (1 of 1 - PCV) 01/18/2020 ZOSTER VACCINE (1 of 2) 01/18/2020 DEPRESSION SCREENING 09/29/2024 COVID-19 VACCINE (1 - 2024-2 6 season) 2025 INFLUENZA VACCINE (#1) 2025 HIB [...]
--- OUTSIDE RECORDS SUMMARY | 2025-08-19 14:01 | XMS_ITS | Clinical Summary ---
Author Organization [facility] Address [address] [address] Phone Care Team Providers Care Government Affairs Specialist Name Role Phone Winsome Zambrano MD, Nicholas [...] 07/18/2023 Assessment & Plan (08/11/2023 2:07 PM ASSEMBLER LEATHER GOODS): Chronic stable Well controlled Continue current prescribed [...] weight Assessment & Plan (08/11/2023 2:48 PM ASSEMBLER LEATHER GOODS): Monitor weight Assessment & Plan (07/18/2023 11:49 [...] 01/25/2021 Assessment & Plan (08/11/2023 2:47 PM ASSEMBLER LEATHER GOODS): Reviewed labs, screenings and vaccines Bipolar 1 [...] Encounters Date Type Department Care Team Description 08/16/2025 Telephone [facility] [address] [place] [phone] Nicholas Schumacher Jr., MD Additional Services Or Orders 07/20/2025 Orders Only [facility] [address] [place] [phone] Scanning, Provider 07/20/2025 Telephone [facility] [address] [place] [phone] Nicholas Schumacher Jr., MD follow for home health 07/08/2025 Orders Only [facility] [address] [place] [phone] Scanning, Provider 07/06/2025 Telephone [facility] [address] [place] [phone] Nicholas Schumacher Jr., MD Med Refill 07/05/2025 Orders Only [facility] [address] [place] [phone] Scanning, Provider from Last 3 Months Immunizations Immunization Administration Dates Next Due Influenza, Quadrivalent, Spl it, Preservative Free, Intramuscular 07/21/2023,06/17/2020,08/18/2019,06/26,07/29/2017 Influenza, Unspecified 07/30/2023,2022(Deferred: Patient Refused),08/08/2022,07/30/2022(Deferre d: Patient Refused) [employer] ([employer]) SARS-CoV-2 Vaccination 01/24/2021 Tdap 08/11/2018 ZOSTER [...] Comments Blood Pressure 138/78 08/11/2023 1:37 PM ASSEMBLER LEATHER [employer] Pulse 90 08/11/2023 1:37 PM ASSEMBLER [employer] Temperature 36.7 C (98 F) 08/11/2023 1:37 PM ASSEMBLER LEATHER [employer] Respiratory Rate 18 08/11/2023 1:37 PM ASSEMBLER LEATHER [employer] Oxygen Saturation 98% 08/11/2023 1:37 PM ASSEMBLER LEATHER [employer] Inhaled Oxygen Concentration - - Weight 105.7 [...] Final Result from Last 3 Months Insurance [facility] Care Teams Government Affairs Specialist Relationship Specialty Start Date End Date Nicholas Schumacher Jr., MD [address] [place] [phone] PCP - General Internal Medicine 01/17/21
--- OUTSIDE RECORDS SUMMARY | 2025-08-19 14:01 | XMS_ITS | Encounter Summary ---
Author Organization [facility] Healthcare Address [address] [place] [address] Care Team Providers Care Medical Observer Name Role Phone Winsome Zambrano MD, Nicholas Williamson Primary Care Provide r Reason for Visit * Reason Onset Date Comments Additional Services Or Orders 08/16/2025 Encounter Details Date Type Department Care Team ([facility] st Contact Info) Description 08/16/2025 Telephone [facility] Primary Care [address] [place] [phone] Nicholas Schumacher Jr., MD [address] [place] [phone] Additional Services Or Orders Social History Tobacco Use Types Packs/Day Years Used Date Smoking Tobacco: Some Days Vaping Comments:cutting back AUDIT-C Answer Date Recorded Q1: [...] on file Sexual Orientation Not on file documented as of this encounter Miscellaneous Notes * Telephone Encounter - Gail Langley MA - 08/16/2025 2:14 PM MARINE SUPERINTENDENT LM< Lab orders have been placed NE SUPERINTENDENT * Telephone Encounter - Milena Rodríguez - 08/16/2025 11:49 AM CST Additional Services or Orders Type of Service Requested:Labs Reason for Request (e.g. condition/symptom, date of COVID exposure if applicable): Routine before PE on 08/29/2025 Details Regarding Additional Services (e.g. type of home health, type of equipment, type of test, etc.): Labs Where will services be performed? (if outside of the practice, facility name, address, phone/fax offacility): [place] [address] Fax Additional Comments: none Does message need to be routed? Yes-Action Needed NE SUPERINTENDENT documented in this encounter Plan of Treatment Scheduled Orders Name Type Priority Associated Diagnoses Orde r Schedule CBC with auto differential Lab Routine Preventative health care Primary hypertension Expected: 08/16/2025, Expires: 08/16/2026 Comprehensive metabolic panel Lab Routine Preventative health care Primary hypertension Expected: 08/16/2025, Expires: 08/16/2026 Lipid panel Lab Routine Preventative health care Primary hypertension Expected: 08/16/2025, Expires: 08/16/2026 Vitamin D 25 hydroxy Lab Routine Preventative health care Primary hypertension Expected: 08/16/2025, Expires: 08/16/2026 documented as of this encounter Visit Diagnoses Diagnosis Preventative health care- Primary Routine general medical examination at a health care facility Primary hypertension Unspecified essential hypertension documented in this encounter Care Teams Medical Observer Relationship Specialty Start Date End Date Nicholas Schumacher Jr., MD [address] [place] [phone] PCP - General Internal Medicine 01/17/21 documented as of this encounter
[2025-08-19 14:02] VITALS: BP 127/94; PULSE 65; RESP 16; TEMP 36.6; O2SAT 98
--- OUTSIDE RECORDS SUMMARY | 2025-08-19 15:06 | XMS_ITS | Encounter Summary ---
Author Organization [facility] Healthcare Address [address] [place] [address] Care Team Providers Care Emergency Services Director Name Role Phone Winsome Zambrano MD, Nicholas Williamson Primary Care Provide r Reason for Visit * Reason Onset Date Comments Additional Services Or Orders 08/16/2025 Encounter Details Date Type Department Care Team ([facility] st Contact Info) Description 08/16/[address] [facility] Medical Group Primary Care [address] [place] [phone] Nicholas Schumacher Jr., MD [address] [place] [phone] Additional Services Or Orders Social History [...] Gail Langley MA - 08/16/2025 2:14 PM PAPER BAG MACHINE OPERATOR LM< Lab orders have been placed R BAG MACHINE OPERATOR * Telephone Encounter - Milena Rodríguez - [...] the practice, facility name, address, phone/fax offacility): [facility] [place] [address] Fax Additional Comments: none Does message need to be routed? Yes-Action Needed R BAG MACHINE OPERATOR documented in this encounter Plan of Treatment [...] hypertension documented in this encounter Care Teams Emergency Services Director Relationship Specialty Start Date End Date Nicholas Schumacher Jr., MD [address] [place] [phone] PCP - General Internal Medicine 01/17/21 documented as of this encounter
--- OUTSIDE RECORDS SUMMARY | 2025-08-19 15:06 | XMS_ITS | Clinical Summary ---
Author Organization [facility] Address [address] [address] Phone Care Team Providers Care Workers Compensation Adjuster Name Role Phone Winsome Zambrano MD, Nicholas [...] 07/18/2023 Assessment & Plan (08/11/2023 2:07 PM HOBBING MACHINE OPERATOR): Chronic stable Well controlled Continue [...] weight Assessment & Plan (08/11/2023 2:48 PM HOBBING MACHINE OPERATOR): Monitor weight Assessment & Plan [...] 01/25/2021 Assessment & Plan (08/11/2023 2:47 PM HOBBING MACHINE OPERATOR): Reviewed labs, screenings and vaccines [...] Type Department Care Team Description 08/16/2025 Telephone [facility] [address] [place] [phone] Nicholas Schumacher Jr., MD Additional Services Or Orders 07/20/2025 Orders Only [facility] [address] [place] [phone] Scanning, Provider 07/20/2025 Telephone [facility] [address] [place] [phone] Nicholas Schumacher Jr., MD follow for home health 07/08/2025 Orders Only [facility] [address] [place] [phone] Scanning, Provider 07/06/2025 Telephone [facility] [address] [place] [phone] Nicholas Schumacher Jr., MD Med Refill 07/05/2025 Orders Only [facility] [address] [place] [phone] Scanning, Provider from Last 3 Months Immunizations Immunization Administration Dates Next Due Influenza, Quadrivalent, Spl it, Preservative Free, Intramuscular 07/21/2023,06/17/2020,08/18/2019,06/26,07/29/2017 Influenza, Unspecified 07/30/2023,2022(Deferred: Patient Refused),08/08/2022,07/30/2022(Deferre d: Patient Refused) [employer] ([employer]) SARS-CoV-2 Vaccination 01/24/2021 Tdap 08/11/2018 ZOSTER [...] Comments Blood Pressure 138/78 08/11/2023 1:37 PM HOBBING MACHINE OPERATOR Pulse 90 08/11/2023 1:37 PM HOBBING MACHINE OPERATOR Temperature 36.7 C (98 F) 08/11/2023 1:37 PM HOBBING MACHINE OPERATOR Respiratory Rate 18 08/11/2023 1:37 PM HOBBING MACHINE OPERATOR Oxygen Saturation 98% 08/11/2023 1:37 PM HOBBING MACHINE OPERATOR Inhaled Oxygen Concentration - - [...] Final Result from Last 3 Months Insurance [facility] Care Teams Workers Compensation Adjuster Relationship Specialty Start Date End Date Nicholas Schumacher Jr., MD [address] [place] [phone] PCP - General Internal Medicine 01/17/21
--- OUTSIDE RECORDS SUMMARY | 2025-08-19 15:06 | XMS_ITS | Clinical Summary ---
Author Organization [facility] Address [address] [place] [address] Care Team Providers Care Ssis Etl Developer Name Role Phone Unavailable Primary Care Provider Unavailabl e Source Comments [facility] [employer],non-owned Affiliates and Associated Physician Practices is amultiple site organization consisting of ambulatory clinics and hospital sitesin [place], [place], [place] and [place]. This disclosure is being madepursuant to the Care Everywhere program and may not contain all information available regarding this patient. Last updated 18.[facility] [employer] Social History Tobacco Use Types Packs/Day Years Used Date Smoking Tobacco: Every Day Cigarettes Alcohol Use Standard Drinks/Week Comments No 0 (1 standard drink = 0.6 oz pur e alcohol) Comments Unknown Sex and Gender Information Value Date Recorded Sex Assigned at Not on file Legal Sex Female 6:00 PM CD TECHNICIAN Gender Identity Not on file Sexual Orientation [...]
[2025-08-19 16:06] LABS: Hematocrit 36.6 % (37.0-47.0); Hemoglobin 12.2 g/dL (12.0-15.0); Immature Granulocyte Percent A 0.2 % (0-0.5); Lymphocytes Absolute Auto 1.28 K/mm3 (0.9-3.2); Mean Corpuscular HGB Conc 33.3 g/dl (32-36); Mean Corpuscular Hemoglobin 30.7 pg (26-34); Mean Corpuscular Volume 92.0 fl (80-100); Nucleated Red Blood Cells Absolute Auto 0.000 K/mm3 (0.0-0.012); Nucleated Red Blood Cells Perc 0.0 % (0.0-0.2); Platelet Count Result 116 k/mm3 (150-375); Red Blood Count 3.98 M/mm3 (4.2-5.4); White Blood Count 4.6 K/mm3 (4.5-10.0)
[2025-08-19 16:17] LABS: Ammonia 21 umol/L (9-30)
[2025-08-19 16:18] LABS: Alanine Aminotransferase 85 U/L (6-35); Albumin Level 3.5 g/dL (3.5-5.1); Alkaline Phosphatase 155 U/L (38-126); Anion Gap 6 mmol/L (4-12); Aspartate Amino Transferase 141 U/L (14-36); Bilirubin,Total 1.3 mg/dL (0.2-1.3); Blood Urea Nitrogen 22 mg/dL (7-17); Calcium 8.8 mg/dL (8.4-10.2); Carbon Dioxide 26 mmol/L (22-30); Chloride 99 mmol/L (98-107); Estimated CRCL calculation 77 ml/min; Estimated Glomerular Filt Rate > 60; Glucose 98 mg/dL (65-110); Potassium 3.5 mmol/L (3.4-5.0); Sodium 131 mmol/L (137-145); Total Protein 8.0 g/dL (6.3-8.2)
[2025-08-19 16:26] LABS: INR 1.1; Prothrombin Time 14.3 Seconds (11.1-14.7)
[2025-08-19 16:27] LABS: Partial Thromboplastin Time 30.1 Seconds (22.3-36.8)
--- NOTE | 2025-08-19 17:04 | ED_ITS ---
HPI - General Adult General Chief complaint: Unspecified Stated complaint: back pain and needs liver disease meds Time Seen by Provider: 08/19/25 14:55 History of Present Illness HPI narrative: Patient is a 55-year-old female who presents ER with a lot of vague issues. Her for specific issue is the fact that she tripped walking up some stairs and thinks she may have injured her back again. Recently diagnosed with some thoracic fractures. No new numbness or tingling to the arms or legs. She did not strike her head or lose consciousness. She has a TLSO brace at home that she is not wearing because she does not fit in a Norma while wearing it. Patient also reports she would like a refill of her home medications because she cannot see a primary care doctor until September. She is provided a list of home medications at require refill. Related Data Home Medications ?Medication ?Instructions ?Recorded ?Confirmed ?Last Taken ?Type bupropion HCl 200 mg tablet,12 hr 200 mg PO Q12H 07/0508/19/25 Unknown History sustained-release levothyroxine 50 mcg tablet 50 mcg PO DAILY 07/05/25 1 10/19/24 Unknown History ondansetron 4 mg disintegrating 4 mg PO TID PRN nausea and vomiting 07/05/25 08/19/25 Unknown History tablet pantoprazole 40 mg tablet,delayed 40 mg PO Q12H 08/19/25 Unknown History release quetiapine 100 mg tablet 200 mg PO HS 07/05/25 Unknown History sertraline 50 mg tablet 50 mg PO DAILY 07/05/2507/31 Unknown History Allergies Allergy/AdvReac Type Severity Reaction Status Date / Time adhesive tape AdvReac Intermediate blister Verified 08/19/25 14:18 Review of Systems 2 Review of Systems: All systems reviewed & are unremarkable except as noted in HPI and below Constitutional: Constitutional: Reports no additional constitutional complaints Cardiovascular: Cardiovascular: Reports no additional cardiovascular complaints Respiratory: Respiratory: Reports no additional respiratory complaints Gastrointestinal: Gastrointestinal: Reports no additional gastrointestinal complaints Musculoskeletal: Musculoskeletal: Reports no additional musculoskeletal complaints [facility] Past Medical History Medical History (Updated 08/19/25 @ 17:11 by Jeffrey Day MD) Stable burst fracture of T5 vertebra Closed wedge compression fracture of T2 vertebra Seizure Pancytopenia Cirrhosis of liver Hepatitis C Family History Family History Father Lung cancer Social History Social History Smoking packs per day: 1 Smoking cigarettes per day: 20.0 Years smoked: 30 Smoking pack-years: 30.00 Smoking status: Former smoker Tobacco type: cigarettes Smoking end date: 06/29/20 Alcohol intake: never Substance use: never Lack of Transportation: No Lack of Food: Never True Current Housing: I Have Housing Concerned About Future Housing: No Difficulty Paying Gas/Electric Bills: No Difficulty Paying for Meds: No Currently Unemployed: No Education: Associate Degree Difficulty w/ Childcare or Family Care: No Spiritual care concerns: No Exam 2 Narrative: GENERAL: Well-appearing, well-nourished, and in no acute distress. HEAD: Normocephalic, atraumatic. ENT: Mucous membranes moist. CHEST: Clear to auscultation. No respiratory distress. HEART: Regular rate and rhythm. Normal peripheral pulses. Back: Mild tenderness in paraspinal muscular area of the T5/T6 region of the back without significant midline tenderness. No step-offs. No lumbar tenderness. EXTREMITIES: Normal range of motion. No edema. SKIN: Warm, dry, no rash. NEURO: Alert and oriented x3. PSYCH: Normal mood and affect. Course Course Emergency Course: Patient with only her chronic fractures. Recommend wearing her brace. Discharge home with home medications that require refill. Will give several months so she does not have to keep coming back to the ER. I will not fill narcotic pain medications. Vital Signs Vital signs: Vital Signs Temperature 98 F 08/19/25 14:02 Pulse Rate 65 08/19/25 14:02 Respiratory Rate 16 08/19/25 14:02 Blood Pressure 127/94 H 08/19/25 14:02 Pulse Oximetry 98 08/19/25 14:02 Temperature 98 F 08/19/25 14:02 Pulse Rate 65 08/19/25 14:02 Respiratory Rate 16 08/19/25 14:02 Blood Pressure 127/94 H 08/19/25 14:02 Pulse Oximetry 98 08/19/25 14:02 Medical Decision Making Differential Diagnosis Differential Diagnosis: Vertebral fracture, cord compression, hepatic encephalopathy, electrolyte derangement Vital Signs Vital Signs: Vital Signs Temperature 98 F 08/19/25 14:02 Pulse Rate 65 08/19/25 14:02 Respiratory Rate 16 08/19/25 14:02 Blood Pressure 127/94 H 08/19/25 14:02 Pulse Oximetry 98 08/19/25 14:02 Temperature 98 F 08/19/25 14:02 Pulse Rate 65 08/19/25 14:02 Respiratory Rate 16 08/19/25 14:02 Blood Pressure 127/94 H 08/19/25 14:02 Pulse Oximetry 98 08/19/25 14:02 Lab Data 08/19/25 15:55 08/19/25 15:55 Labs: Lab Results 08/19/25 Range/Units 15:55 WBC 4.6 (4.5-10.0) K/mm3 RBC 3.98 L (4.2-5.4) M/mm3 Hgb 12.2 (12.0-15.0) g/dL Hct 36.6 L (37.0-47.0) % MCV 92.0 (80-100) fl MCH 30.7 (26-34) pg MCHC 33.3 (32-36) g/dl RDW 15.2 H (11.5-14.5) % Plt Count 116 L (150-375) k/mm3 MPV 9.4 (7.4-10.4) fl Immature Gran % (Auto) 0.2 (0-0.5) % Neut % (Auto) 53.4 (45.5-73.1) % Lymph % (Auto) 27.8 (18.3-44.2) % [place] % (Auto) 15.6 H (2.6-8.5) % Eos % (Auto) 1.7 (0-4.4) % Baso % (Auto) 1.3 H (0.2-1.2) % Lymph # (Auto) 1.28 (0.9-3.2) K/mm3 [place] # (Auto) 0.7 H (0.1-0.6) K/mm3 Eos # (Auto) 0.1 (0-0.3) K/mm3 Baso # (Auto) 0.1 (0.0-0.1) K/mm3 Abs Immat Gran (auto) 0.01 (0.00-0.031) K/mm3 Absolute Neuts (auto) 2.5 (1.3-6.7) K/mm3 Absolute Nucleated RBC 0.000 (0.0-0.012) K/mm3 Nucleated RBC % 0.0 (0.0-0.2) % PT 14.3 (11.1-14.7) Seconds INR 1.1 APTT 30.1 (22.3-36.8) Seconds Sodium 131 L (137-145) mmol/L Potassium 3.5 (3.4-5.0) mmol/L Chloride 99 (98-107) mmol/L Carbon Dioxide 26 (22-30) mmol/L Anion Gap 6 (4-12) mmol/L BUN 22 H D (7-17) mg/dL Creatinine 0.94 (0.7-1.0) mg/dL Estim Creat Clear Calc 77 ml/min Estimated GFR > 60 (59 - ) Glucose 98 (65-110) mg/dL Calcium 8.8 (8.4-10.2) mg/dL Total Bilirubin 1.3 (0.2-1.3) mg/dL AST 141 H (14-36) U/L ALT 85 H (6-35) U/L Alkaline Phosphatase 155 H (38-126) U/L Ammonia 21 (9-30) umol/L Total Protein 8.0 (6.3-8.2) g/dL Albumin 3.5 (3.5-5.1) g/dL Imaging Data Radiologist's impression: ITS Impressions Thoracic Spine X-Ray 08/19/25 15:43 IMPRESSION: 1. Previously noted fractures involving the T5 and T11 thoracic vertebrae are consistent with CT findings on 08/04/2025. 2. Degenerative disc changes of moderate degree at multiple levels. Discharge Plan Discharge Clinical Impression: Chronic back pain, Medication refill Patient Disposition: Home Condition: Stable Instructions: Chronic Back Pain (DC), Medicine Refill (ED) Additional Instructions: Please return to the emergency department if you develop severe pain that is not controlled by pain medications or if you are unable to walk because of pain or weakness. Return to the emergency department immediately if you develop fevers, loss of bowel or bladder control (dribbling of urine or having accidents you wouldn't normally have), inability to urinate, numbness of your genital or anal area, or weakness/numbness of your legs or arms as these could all be signs of a serious medical emergency. Patient Language: Djiboutian Prescriptions: New levetiracetam [Keppra] 500 mg tablet 500 mg PO BID Qty: 60 3RF quetiapine 200 mg tablet 200 mg PO HS Qty: 30 3RF furosemide 80 mg tablet 80 mg PO DAILY Qty: 30 3RF sertraline 50 mg tablet 50 mg PO DAILY Qty: 30 3RF spironolactone 50 mg tablet 200 mg PO QAM 30 Days Qty: 120 3RF bupropion HCl 200 mg tablet sustained-release 12 hr 200 mg PO BID Qty: 60 3RF levothyroxine 50 mcg capsule 50 mcg PO DAILY Qty: 30 3RF No Action lactulose [Constulose] 10 gram/15 mL solution 30 ml PO TID 30 Days Qty: 2700 3RF Rx Instructions: Titrate 3-4 loose BM per day bupropion HCl 200 mg tablet sustained-release 12 hr 200 mg PO Q12H quetiapine 100 mg tablet 200 mg PO HS levothyroxine 50 mcg tablet 50 mcg PO DAILY pantoprazole 40 mg tablet,delayed release (DR/EC) 40 mg PO Q12H sertraline 50 mg tablet 50 mg PO DAILY ondansetron 4 mg tablet,disintegrating 4 mg PO TID PRN (Reason: nausea and vomiting) methocarbamol 500 mg Tablet 500 mg PO DAILY PRN (Reason: spasms) Qty: 30 0RF levetiracetam [Keppra] 500 mg Tablet 500 mg PO Q12HR Qty: 60 0RF alprazolam 1 mg tablet 1 mg PO BID PRN (Reason: anxiety) Qty: 10 0RF diazepam [Valium] 5 mg tablet 5 mg PO HS PRN (Reason: muscle spasm) Qty: 7 0RF oxycodone 5 mg tablet 5 mg PO Q6H PRN (Reason: pain) Qty: 12 0RF furosemide 80 mg tablet 80 mg PO DAILY Qty: 30 0RF spironolactone 50 mg tablet 200 mg PO QAM 30 Days Qty: 120 0RF Follow-up/Referrals: Winsome,Nicholas Williamson Jr., MD [Non-Staff, Unknown] - 1 Week PHYSICIAN,AGRICULTURAL RESEARCH TECHNICIAN [Primary Care Provider, Internal Medicine]
[2025-08-19] MEDS: ONDANSETRON HCL ODT 4 MG TABLET PO (17:07)
== END 2025-08-19 17:32 | disposition home or self-care (01) ==
PROVIDERS: Emergency Provider Emergency Medicine
DX: G89.29 Other chronic pain (principal); M54.9 Dorsalgia, unspecified; Z76.0 Encounter for issue of repeat prescription; Z79.899 Other long term (current) drug therapy; Z87.891 Personal history of nicotine dependence
CPT/HCPCS: 36415; 72072; 80053; 82140; 85025; 85610; 85730; 99283; A9270

== ENCOUNTER 2025-09-01 14:18 | Emergency (ER) | payer OTHER, SELFPAY ==
[2025-09-01] VITALS (14 sets, daily range): BP systolic 101–129; BP diastolic 67–101; PULSE 74–94; RESP 14–232; TEMP 36.4–36.5; O2SAT 98–100
--- NOTE | ~2025-09-01 | US_ITS ---
EXAMINATION: US paracentesis abd w/image DATE: 09/01/2025 17:14 INDICATION: Ascites. TECHNIQUE: The procedure and its risks and benefits were discussed with the patient. Potential risks discussed included bleeding and infection. The skin was prepped and draped in sterile fashion. 1% lidocaine was used for local anesthesia. Under ultrasound guidance, a 5 Fr catheter with trochar was advanced into the ascites in the left lower quadrant. Fluid was aspirated into vacuum bottles. The catheter was removed, and a dressing was applied. There were no immediate complications. FINDINGS: Ultrasound images demonstrate ascites and the catheter within the fluid. IMPRESSION: 1. Successful ultrasound-guided paracentesis yielding 6600 mL of clear yellow fluid. Reviewed, dictated and finalized at location A. OR FINANCE MANAGER
--- NOTE | 2025-09-01 15:07 | PC.NURSE ---
patient states last oral intake was prior to arrival and was ice chips. states that any other intake was yesterday 08/31 spoke with Tiffany in Ultrasound at this time- they have some availability and are hoping to get her in around 1630. consent signed, patient updated to plan of care.
[2025-09-01] MEDS: ONDANSETRON HCL ODT 4 MG TABLET PO (15:12)
--- NOTE | 2025-09-01 16:37 | ED.SOB ---
HPI - SOB/Dyspnea General Chief Complaint: Shortness of Breath/Dyspnea Stated Complaint: SOB, fluid coming from belly button, ascities Time Seen by Provider: 09/01/25 14:24 History of Present Illness HPI Narrative: Patient with h/o cirrhosis with ascites, last para >1mo ago presents with worsening SOB and ascites; has appt for para in 1 mo but could not hold on any more Related Data Home Medications ?Medication ?Instructions ?Recorded ?Confirmed ?Last Taken ?Type bupropion HCl 200 mg tablet,12 hr 200 mg PO Q12H 07/05/25 08/19/25 Unknown History sustained-release levothyroxine 50 mcg tablet 50 mcg PO DAILY 07/05/25 08/19/25 Unknown History ondansetron 4 mg disintegrating 4 mg PO TID PRN nausea and vomiting 07/05/25 08/19/25 Unknown History tablet pantoprazole 40 mg tablet,delayed 40 mg PO Q12H 07/05/25 08/19/25 Unknown History release quetiapine 100 mg tablet 200 mg PO HS 07/05/25 08/19/25 Unknown History sertraline 50 mg tablet 50 mg PO DAILY 07/05/25 08/19/25 Unknown History Allergies Allergy/AdvReac Type Severity Reaction Status Date / Time adhesive tape AdvReac Intermediate blister Verified 08/19/25 14:18 Review of Systems Review of Systems: All systems reviewed & are unremarkable except as noted in HPI and below PMFSH Past Medical History Medical History (Updated 09/01/25 @ 14:56 by Ani Goldman MD) Stable burst fracture of T5 vertebra Closed wedge compression fracture of T2 vertebra Seizure Pancytopenia Cirrhosis of liver Hepatitis C Family History Family History Father Lung cancer Social History Social History Smoking packs per day: 1 Smoking cigarettes per day: 20.0 Years smoked: 30 Smoking pack-years: 30.00 Smoking status: Former smoker Tobacco type: cigarettes Smoking end date: 06/29/20 Alcohol intake: never Substance use: never Lack of Transportation: No Lack of Food: Never True Current Housing: I Have Housing Concerned About Future Housing: No Difficulty Paying Gas/Electric Bills: No Difficulty Paying for Meds: No Currently Unemployed: No Education: Associate Degree Difficulty w/ Childcare or Family Care: No Spiritual care concerns: No Exam Narrative: EXAMINATION OF ORGAN SYSTEMS/BODY AREAS: Constitutional: Vital signs per nursing GENERAL:[No acute distress, non-toxic appearing.] HEAD: Normal with no signs of head trauma. EYES: EOMI, conjunctiva normal ENT: Hearing grossly intact LUNGS: Slightly out of breath HEART: [Regular rate and rhythm] ABD: Distended EXT: Normal range of motion NEURO: [Alert. No gross focal sensory or strength deficits.] PSYCH: Normal affect Course Vital Signs Vital signs: Vital Signs Temperature 97.6 F 09/01/25 14:27 Pulse Rate 94 09/01/25 14:27 Respiratory Rate 232 H 09/01/25 14:27 Blood Pressure 124/90 09/01/25 14:27 Pulse Oximetry 100 09/01/25 14:27 Oxygen Delivery Room Air 09/01/25 14:27 Temperature 97.7 F 09/01/25 14:31 Pulse Rate 74 09/01/25 18:25 Respiratory Rate 14 09/01/25 18:25 Blood Pressure 127/91 H 09/01/25 18:25 Pulse Oximetry 98 09/01/25 18:25 Oxygen Delivery Room Air 09/01/25 14:31 MDM MDM Narrative Medical decision making narrative: Patient with history of cirrhosis/ascites presents requesting paracentesis because next appointment not for another month, last 1 was a month ago, and she feels extremely distended, and short of breath. Dr Garcia generously agreed to perform paracentesis for her today; patient instructed to follow up with her GI to get her timothy scheduled more regularly in the future. She requested rx for narcotics and zofran, I will refill her zofran but I did instruct her to follow up with her GI for additional meds other than tylenol which pt states does not work for her. Successful removal of is 100 fluid. Will be observed here, orthostatics checked, and asked to follow-up with her GI with return precautions. Differential Diagnosis Differential Diagnosis: ascites, no signs of infection Imaging Data Radiologist's impression: ITS Impressions Paracentesis Ultrasound 09/01/25 17:21 IMPRESSION: 1. Successful ultrasound-guided paracentesis yielding 6600 mL of clear yellow fluid. Discharge Plan Discharge Clinical Impression: Abdominal ascites Qualifiers: Ascites type: other type Qualified Code(s): R18.8 - Other ascites Patient Disposition: Home Condition: Stable Instructions: Ascites (ED) Additional Instructions: Call your doctor today to make a close appointment with your GI specialist and for any refills on your medications. You can always return to the ER for any further issues. Patient Language: Qatari Prescriptions: No Action lactulose [Constulose] 10 gram/15 mL solution 30 ml PO TID 30 Days Qty: 2700 3RF Rx Instructions: Titrate 3-4 loose BM per day bupropion HCl 200 mg tablet sustained-release 12 hr 200 mg PO Q12H quetiapine 100 mg tablet 200 mg PO HS levothyroxine 50 mcg tablet 50 mcg PO DAILY pantoprazole 40 mg tablet,delayed release (DR/EC) 40 mg PO Q12H sertraline 50 mg tablet 50 mg PO DAILY ondansetron 4 mg tablet,disintegrating 4 mg PO TID PRN (Reason: nausea and vomiting) methocarbamol 500 mg Tablet 500 mg PO DAILY PRN (Reason: spasms) Qty: 30 0RF levetiracetam [Keppra] 500 mg Tablet 500 mg PO Q12HR Qty: 60 0RF alprazolam 1 mg tablet 1 mg PO BID PRN (Reason: anxiety) Qty: 10 0RF levetiracetam [Keppra] 500 mg tablet 500 mg PO BID Qty: 60 3RF quetiapine 200 mg tablet 200 mg PO HS Qty: 30 3RF furosemide 80 mg tablet 80 mg PO DAILY Qty: 30 3RF sertraline 50 mg tablet 50 mg PO DAILY Qty: 30 3RF spironolactone 50 mg tablet 200 mg PO QAM 30 Days Qty: 120 3RF bupropion HCl 200 mg tablet sustained-release 12 hr 200 mg PO BID Qty: 60 3RF levothyroxine 50 mcg capsule 50 mcg PO DAILY Qty: 30 3RF diazepam [Valium] 5 mg tablet 5 mg PO HS PRN (Reason: muscle spasm) Qty: 7 0RF oxycodone 5 mg tablet 5 mg PO Q6H PRN (Reason: pain) Qty: 12 0RF furosemide 80 mg tablet 80 mg PO DAILY Qty: 30 0RF spironolactone 50 mg tablet 200 mg PO QAM 30 Days Qty: 120 0RF Follow-up/Referrals: PHYSICIAN,[employer] [Primary Care Provider, Internal Medicine]
--- NOTE | 2025-09-01 17:10 | PC.NURSE ---
patient back to ED at this time for monitoring post paracentesis. patient denies any complaints at this time. GI lab nurse informed this rn that 6600 ml of fluid was removed from pts abdomen.
== END 2025-09-01 18:31 | disposition home or self-care (01) ==
PROVIDERS: Emergency Provider Emergency Medicine
DX: R18.8 Other ascites (principal); K74.60 Unspecified cirrhosis of liver; B19.20 Unspecified viral hepatitis C without hepatic coma; Z87.891 Personal history of nicotine dependence; Z79.899 Other long term (current) drug therapy
CPT/HCPCS: 49083; 99283; A9270